=== PATIENT | female | born 1990 | race Caucasian/White ===

== ENCOUNTER 2020-10-13 09:44 | Outpatient (REF) | payer OTHER, SELFPAY ==
[2020-10-13 10:14] LABS: COVID-19 Test Negative (Negative); IDNOW Serial# 55D5AD1C
== END 2020-10-13 09:45 | disposition home or self-care (01) ==
LOC: HO.LAB 09:44
PROVIDERS: Visit Provider Internal Medicine
DX: Z20.822 Contact with and (suspected) exposure to COVID-19 (principal)
CPT/HCPCS: 36415; 87635; C9803

== ENCOUNTER 2021-04-15 07:36 | Emergency (ER) | payer OTHER, SELFPAY ==
--- NOTE | ~2021-04-15 | CT_ITS ---
EXAMINATION: CT ABDOMEN WITHOUT CONTRAST CLINICAL INFORMATION: Left flank pain COMPARISON: CT abdomen and pelvis 05/14/2018. TECHNIQUE: Contiguous axial thin section helical images of the abdomen were performed without contrast. The data set was reformatted in the coronal and sagittal planes and reviewed on an independent workstation. This CT examination was performed using dose optimization techniques as appropriate, variously including the following: *Automated exposure control *Adjustment of mA and/or kV according to patient size (this includes techniques or standardized protocols for targeted exams where dose is matched to indication/reason for exam; i.e. extremities or head) *Use of iterative reconstruction technique DLP: 280 mGy-cm FINDINGS: Only abdomen was imaged. The pelvis was not imaged. LUNG BASES: The lung bases are clear. The heart size is normal. LIVER, GALLBLADDER, BILIARY TREE: The liver is normal size, shape and density. No focal lesion or intrahepatic ductal dilatation seen. There are no radiopaque gallstones or wall thickening. PANCREAS: Adjacent density and appears normal. SPLEEN: Unremarkable. ADRENAL GLANDS AND KIDNEYS: Bilateral adrenal glands are unremarkable. There are bilateral radiopaque renal calculi. A 3 mm and a 7 mm radiopaque calculi seen in the midpole right kidney. 1 mm punctate radiopaque calculus and upper midpole left kidney. There are punctate 1 mm radiopaque calculi. There is mild prominence of proximal left ureter BOWEL LOOPS: Scattered stool and gas is seen in the colon. The small bowel loops are normal caliber. Appendix is normal caliber. There is no free air or free fluid. LYMPH NODES: Normal. VASCULAR: Unremarkable. BONES: No lytic or sclerotic process seen. CT/CT abdomen wo con IMPRESSION: Nonobstructive bilateral radiopaque renal calculi. Minimal prominence of left proximal ureter.
[2021-04-15 07:37] VITALS: BP 115/68; PULSE 75; RESP 16; TEMP 36.6; O2SAT 99; BMI 27.3
[2021-04-15] MEDS: Ketorolac Tromethamine 15 MG/ML VIAL IVPUSH (08:08)
[2021-04-15] MEDS: 0.9 % Sodium Chloride 1,000 ML 999 ML IVCONT (08:09)
--- NOTE | 2021-04-15 08:09 | ED_ITS ---
HPI - Abdominal Pain General Chief Complaint: Abdominal Pain Stated Complaint: flank pain Time Seen by Provider: 04/15/21 07:56 Source: patient Mode of arrival: ambulatory Limitations: no limitations History of Present Illness HPI narrative: This is a 30 years old female presented to the ED with a chief complaint of left flank pain. She states that the pain started 4 hours ago, she states she that she has history of kidney stone. There is no fever, no chills, no vomiting and no diarrhea. MD elicited complaint: flank pain Pertinent past history: kidney stones Onset (ago): hour(s) (4) Pain Consistency: constant Location: L flank Severity: moderate Quality: dull Radiation: L flank Migration to: no migration Exacerbating factors: nothing Related Data Patient : No Previous Rx's Medication Instructions Recorded ibuprofen 800 mg tablet 800 mg PO TID PRN #30 tab 04/15/21 oxycodone 5 mg capsule 5 mg PO Q8H PRN #12 cap 04/15/21 Allergies Allergy/AdvReac Type Severity Reaction Status Date / Time Penicillins Allergy Severe ANAPHYLAXIS Verified 04/15/21 10:06 penicillin V Allergy Unknown anaphylaxis Unverified 05/27/19 00:00 Review of Systems Review of Systems Yes all other systems are reviewed and are negative Constitutional: Denies fever(s) Cardiovascular: Denies chest pain Reports system reviewed and no additional complaints, except as documented Physical Exam Vital Signs: Vital Signs: Last Vital Signs Temp 97.9 F 04/15/21 07:37 Pulse 62 04/15/21 09:47 Resp 14 04/15/21 09:47 BP 95/64 04/15/21 09:47 Pulse Ox 98 04/15/21 09:47 Body Mass Index 27.3 Const: General: cooperative, healthy appearing and no acute distress Orientation/consciousness: patient oriented x3 HENMT: Head: Yes normal to inspection Face and sinus: Yes normal facial exam Throat: Yes posterior oropharynx normal Neck: Neck: Yes normal visual inspection, Yes full ROM and Yes no lymphadenopathy Chest: Chest palpation & inspection: normal inspection of the chest Resp: Effort & Inspection: normal respiratory effort Auscultation: clear to auscultation bilaterally Cardio: Jugular venous distension: no JVD Rate: regular rate Rhythm: regular rhythm GI: Inspection: Yes normal to inspection Palpation (GI): Soft to palpation and Tenderness to palpation present (GI) (left flank) Skin: General skin exam: no rashes or lesions noted, elasticity normal and turgor normal Trauma: no lacerations or abrasions Neuro: General: patient oriented x3 Cranial nerves: Yes CN's II-XII intact bilaterally Cognition (Neuro): normal cognition Course Reevaluation(s) Reevaluation #1: pt is asyntomatic pin gone u showed hematuria,ct no hydronephrosis,OK to d/c MDM - Abdominal Pain MDM Narrative Medical decision making narrative: We will obtain CBC, chemistry UA with pre gnancy test we will get a CT scan of the abdomen and pelvis to rule out a kidney stone Lab Data Result diagrams: 04/15/21 09:03 04/15/21 09:03 Labs: Lab Results 04/15/21 04/15/21 04/15/21 Range/Units 09:03 09:03 09:03 WBC 11.5 H (4.8-10.8) X10*3/uL RBC 5.20 (4.20-5.50) X10*6/uL Hgb 14.7 (12.0-16.0) g/dl Hct 45.8 (37-47) % MCV 88.1 (80-98) fL MCH 28.3 (27.0-33.0) pg MCHC 32.1 (31.0-35.0) g/dl RDW 13.4 (11.0-16.0) % Plt Count 242 (160-400) X10*3/uL MPV 11.1 (9.4-12.3) fL Immature Gran % (Auto) 0.3 (0.0-0.4) % Neut % (Auto) 82.1 H (45-73) % Lymph % (Auto) 12.7 L (20-40) % [place] % (Auto) 4.4 (2-11) % Eos % (Auto) 0.3 (0-4) % Baso % (Auto) 0.2 (0-2) % Lymph # (Auto) 1.5 (1.2-4.9) X10*3/uL [place] # (Auto) 0.5 (0.1-1.2) X10*3/uL Eos # (Auto) 0.0 (0.0-0.4) X10*3/uL Baso # (Auto) 0.0 (0.0-0.2) X10*3/uL Abs Immat Gran (auto) 0.04 H (0.00-0.03) X10*3/uL Absolute Neuts (auto) 9.5 H (2.0-8.3) X10*3/uL Absolute Nucleated RBC 0.000 (0.0-0.012) X10*3/uL Nucleated RBC % (auto) 0.0 (0.0-0.2) /100WBC Sodium 138 (135-145) mmol/L Potassium 3.7 (3.3-5.1) mmol/L Chloride 104 (96-108) mmol/L Carbon Dioxide 27 (22-29) mmol/L Anion Gap 11 L (12-20) BUN 7 L (9-16) mg/dL Creatinine 0.80 (0.5-1.4) mg/dL Estim Creat Clear Calc 87.0 Estimated GFR > 60 Random Glucose 104 (60-115) mg/dL Calcium 9.0 (8.4-10.2) mg/dL Total Bilirubin 0.5 (0.0-1.0) mg/dL AST 17 (5-31) U/L ALT 15 (0-31) U/L Alkaline Phosphatase 54 (39-117) U/L Total Protein 7.6 (6.5-8.0) g/dL Albumin 4.7 (3.5-5.0) g/dL Lipase 26 (8-78) U/L Beta HCG, Quant < 2 mIU/mL Urine Color Urine Appearance Urine pH (5.0-8.0) Ur Specific [place] (1.005-1.025) Urine Protein (NEG-TRACE) MG/DL Urine Glucose (UA) (NEG) MG/DL Urine Ketones (NEG) MG/DL Urine Blood (NEG) Urine Nitrite (NEG) Ur Leukocyte Esterase (NEG) Urine RBC (0) /HPF Urine WBC (0-4) /HPF Ur Squamous Epith Cells /LPF Amorphous Sediment /LPF Urine Bacteria /LPF Urine Mucus /LPF Urine Yeast /HPF 04/15/21 Range/Units 09:03 WBC (4.8-10.8) X10*3/uL RBC (4.20-5.50) X10*6/uL Hgb (12.0-16.0) g/dl Hct (37-47) % MCV (80-98) fL MCH (27.0-33.0) pg MCHC (31.0-35.0) g/dl RDW (11.0-16.0) % Plt Count (160-400) X10*3/uL MPV (9.4-12.3) fL Immature Gran % (Auto) (0.0-0.4) % Neut % (Auto) (45-73) % Lymph % (Auto) (20-40) % [place] % (Auto) (2-11) % Eos % (Auto) (0-4) % Baso % (Auto) (0-2) % Lymph # (Auto) (1.2-4.9) X10*3/uL [place] # (Auto) (0.1-1.2) X10*3/uL Eos # (Auto) (0.0-0.4) X10*3/uL Baso # (Auto) (0.0-0.2) X10*3/uL Abs Immat Gran (auto) (0.00-0.03) X10*3/uL Absolute Neuts (auto) (2.0-8.3) X10*3/uL Absolute Nucleated RBC (0.0-0.012) X10*3/uL Nucleated RBC % (auto) (0.0-0.2) /100WBC Sodium (135-145) mmol/L Potassium (3.3-5.1) mmol/L Chloride (96-108) mmol/L Carbon Dioxide (22-29) mmol/L Anion Gap (12-20) BUN (9-16) mg/dL Creatinine (0.5-1.4) mg/dL Estim Creat Clear Calc Estimated GFR Random Glucose (60-115) mg/dL Calcium (8.4-10.2) mg/dL Total Bilirubin (0.0-1.0) mg/dL AST (5-31) U/L ALT (0-31) U/L Alkaline Phosphatase (39-117) U/L Total Protein (6.5-8.0) g/dL Albumin (3.5-5.0) g/dL Lipase (8-78) U/L Beta HCG, Quant mIU/mL Urine Color OTHER Urine Appearance HAZY Urine pH 7.0 (5.0-8.0) Ur Specific [place] <= 1.005 (1.005-1.025) Urine Protein TRACE (NEG-TRACE) MG/DL Urine Glucose (UA) NEG (NEG) MG/DL Urine Ketones NEG (NEG) MG/DL Urine Blood 3+ H (NEG) Urine Nitrite NEG (NEG) Ur Leukocyte Esterase 3+ H (NEG) Urine RBC TNTC H (0) /HPF Urine WBC 10-14 H (0-4) /HPF Ur Squamous Epith Cells TRACE /LPF Amorphous Sediment 1+ /LPF Urine Bacteria 1+ /LPF Urine Mucus TRACE /LPF Urine Yeast TRACE /HPF Imaging Data CT scan - abdomen: Radiologist's impression: PANCREAS: Adjacent density and appears normal.? SPLEEN: Unremarkable.? ADRENAL GLANDS AND KIDNEYS: Bilateral adrenal glands are unremarkable. There are bilateral radiopaque renal calculi. A 3 mm and a 7 mm radiopaque calculi seen in the midpole right kidney. 1 mm punctate radiopaque calculus and upper midpole left kidney. There are punctate 1 mm radiopaque calculi. There is mild prominence of proximal left ureter BOWEL LOOPS: Scattered stool and gas is seen in the colon. The small bowel loops are normal caliber. Appendix is normal caliber. There is no free air or free fluid.? LYMPH NODES: Normal. VASCULAR: Unremarkable. BONES: No lytic or sclerotic process seen.? CT/CT abdomen wo con IMPRESSION: Nonobstructive bilateral radiopaque renal calculi. Minimal prominence of left proximal ureter.? Dictated By: Singh Su MD Signed By: <Electronically signed by Singh Su MD in [place]> 04/15/21 1012 Discharge Plan Discharge Clinical Impression: Renal colic Patient Disposition: Home, Self-Care Instructions: Renal Colic (ED) Prescriptions: New ibuprofen 800 mg tablet 800 mg PO TID PRN (Reason: pain) Qty: 30 RF: 0 oxycodone 5 mg capsule 5 mg PO Q8H PRN (Reason: pain) Qty: 12 RF: 0 Interventions: ED Discharge Assessment Last Done: 04/15/21 10:43 Discharge Date/Time: 04/15/21 10:44 [facility] Past Medical History Attestation statement: The following information was validated with the patient. Social History Social History Patient Tobacco Use Status: Never used Tobacco Use of substances other than those prescribed or required for medical reasons: No Advance Directives: No Patient : No
[2021-04-15 09:09] LABS: MANUAL DIFF FLAG NO
[2021-04-15 09:12] LABS: Basophils Percent Auto 0.2 % (0-2); Eosinophils Percent Auto 0.3 % (0-4); Hematocrit 45.8 % (37-47); Hemoglobin 14.7 g/dl (12.0-16.0); Imm Gran Abs Auto 0.04 X10*3/uL (0.00-0.03); Imm Gran Pct Auto 0.3 % (0.0-0.4); Lymphocytes Absolute Auto 1.5 X10*3/uL (1.2-4.9); Lymphocytes Percent Auto 12.7 % (20-40); Mean Corpuscular HGB Conc 32.1 g/dl (31.0-35.0); Mean Corpuscular Hemoglobin 28.3 pg (27.0-33.0); Mean Corpuscular Volume 88.1 fL (80-98); Mean Platelet Volume 11.1 fL (9.4-12.3); Monocytes Absolute Auto 0.5 X10*3/uL (0.1-1.2); Monocytes Percent Auto 4.4 % (2-11); Neutrophils Absolute Auto 9.5 X10*3/uL (2.0-8.3); Neutrophils Percent Auto 82.1 % (45-73); Platelet Count 242 X10*3/uL (160-400); Red Cell Distribution Width 13.4 % (11.0-16.0); White Blood Count 11.5 X10*3/uL (4.8-10.8)
[2021-04-15 09:14] LABS: Appearance Urine HAZY; Glucose Urine UA NEG (NEG); Leukocyte Esterase Urine 3+ (NEG); Nitrite Urine NEG (NEG); Specific Gravity - Urine <= 1.005 (1.005-1.025); UACC Culture Trigger YES; Urine Blood 3+ (NEG); Urine Ketones NEG (NEG); Urine Protein TRACE MG/DL (NEG-TRACE)
[2021-04-15 09:16] LABS: Color Urine OTHER
[2021-04-15 09:21] LABS: UACC CULT YES
[2021-04-15 09:22] LABS: RBC Urine TNTC /HPF (0); Squamous Epithelial Cell Urine TRACE /LPF
[2021-04-15 09:24] LABS: Amorphous Sediment Urine 1+ /LPF; Bacteria Urine 1+ /LPF; Mucus Urine TRACE /LPF
[2021-04-15 09:30] LABS: Alanine Aminotransferase 15 U/L (0-31); Albumin Level 4.7 g/dL (3.5-5.0); Alkaline Phosphatase 54 U/L (39-117); Anion Gap 11 (12-20); Aspartate Amino Transferase 17 U/L (5-31); Bilirubin Total 0.5 mg/dL (0.0-1.0); Blood Urea Nitrogen 7 mg/dL (9-16); Carbon Dioxide 27 mmol/L (22-29); Chloride 104 mmol/L (96-108); Estimated Glomerular Filt Rate > 60; Glucose Random 104 mg/dL (60-115); Lipase 26 U/L (8-78); Potassium 3.7 mmol/L (3.3-5.1); Sodium 138 mmol/L (135-145); Total Protein 7.6 g/dL (6.5-8.0)
[2021-04-15 09:33] LABS: HCG Quantitative < 2 mIU/mL
--- NOTE | 2021-04-15 09:45 | PC.NURSE ---
The pt presented to the ED for avaluation of L sided flank pain x 23 hours that she believes to be a kidney stone She denies cdhange in bowel/bladder habits. Denies fever/chills She admits to nausea and vomiting prior to arrival. no chest pain or SOB. On arrival IV access obtained, IVF's and Toradol given. Pt arrived with L flank pain 11/10. At this time she rates the pain at 2/10 after Toradol admin. She has been to Ct and has returned to her room and is awaiting MD dispo. Family at the bedside..
[2021-04-15 09:47] VITALS: BP 95/64; PULSE 62; RESP 14; O2SAT 98
== END 2021-04-15 10:44 | disposition home or self-care (01) ==
PROVIDERS: Emergency Provider Emergency Medicine
DX: N23 Unspecified renal colic (principal); Z79.899 Other long term (current) drug therapy
CPT/HCPCS: 36415; 74150; 80053; 81001; 83690; 84702; 85025; 87086; 87088; 87186; 96361; 96374; 99284; 99285; J1885

== ENCOUNTER 2021-04-16 08:59 | Emergency (ER) | payer OTHER, SELFPAY ==
[2021-04-16 09:04] VITALS: BP 100/54; PULSE 77; RESP 22; TEMP 36.6; O2SAT 99; BMI 26.5
--- NOTE | 2021-04-16 09:15 | ED.FEMALEGU ---
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 Denies fever, chills, vomiting, diarrhea, dysuria MD elicited complaint: flank pain Related Data Previous Rx's Medication Instructions Recorded ibuprofen 800 mg tablet 800 mg PO TID PRN #30 tab 04/15/21 oxycodone 5 mg capsule 5 mg PO Q8H PRN #12 cap 04/15/21 oxycodone-acetaminophen 5 mg-325 1 tab PO Q8H PRN 3 Days #9 tab 04/16/21 mg tablet (Percocet) tamsulosin 0.4 mg capsule (Flomax) 0.4 mg PO DAILY #10 cap 04/16/21 Allergies Allergy/AdvReac Type Severity Reaction Status Date / Time Penicillins Allergy Severe ANAPHYLAXIS Verified 04/15/21 10:06 penicillin V Allergy Unknown anaphylaxis Unverified 05/27/19 00:00 Review of Systems Review of Systems: Constitutional:No Fever, No Fatigue, No Malaise ENT/Mouth: No Ear Pain, No Nasal Congestion, No sore throat, No Rhinorrhea, No Swallowing Difficulty Eyes: No Eye Pain, No Discharge Cardiovascular: No Chest Pain, No SOB, No Palpitations Respiratory: No Cough, No Sputum, No Dyspnea Gastrointestinal: + Nausea, No Vomiting, No Diarrhea, No Constipation, + Abdominal pain Genitourinary: No irregular bleeding, No Dysuria, No Urinary Frequency, + Hematuria, No Urinary Incontinence, No Urgency, + Flank Pain, No Urinary Flow Changes, No Hesitancy Musculoskeletal: No joint pain, No Myalgias, No Joint Swelling Skin: No Skin Lesions, No rash Neuro: No Weakness, No Numbness, No Headache Yes all other systems are reviewed and are negative PMFSH Past Medical History Attestation statement: The following information was validated with the patient. Social History Social History Patient Tobacco Use Status: Never used Tobacco Advance Directives: No Patient : No Physical Exam Vital Signs: Vital Signs: Last Vital Signs Temp 98 F 04/16/21 09:04 Pulse 62 04/16/21 10:56 Resp 16 04/16/21 10:56 BP 103/62 04/16/21 10:56 Pulse Ox 99 04/16/21 10:56 Body Mass Index 26.5 Const: General: cooperative, healthy appearing and no acute distress Orientation/consciousness: patient oriented x3 Limitations: no limitations HENMT: Head: Yes normal to inspection Ears: hearing grossly normal bilaterally General nose exam: Normal external nose present Face and sinus: Yes normal facial exam Eyes: General: appearance normal, both eyes and all related structures EOM: EOMs intact bilaterally Neck: Neck: Yes normal visual inspection and Yes no meningeal signs Resp: Effort & Inspection: normal respiratory effort and no respiratory distress Cardio: Rate: regular rate GI: Inspection: Yes normal to inspection Palpation (GI): Soft to palpation, Tenderness to palpation present (GI) in the LLQ, no guarding and not rigid : General: Yes no CVA tenderness Back/Spine/Pelvis: Back: no CVA tenderness Skin: Rashes: no rashes Wounds: no wounds Neuro: General: patient oriented x3 and no meningeal signs Gait exam (Neuro): Normal gait present Extrem: General: Yes normal to inspection Course Course Course Narrative: -WBC 11.8, labs otherwise unremarkable, UA with RBCs/not infected -1055--on re-evaluation patient sleeping comfortably, easily arousable, reports symptomatic improvement, tolerating p.o. -1149--on re-evaluation patient continues to report symptomatic improvement, very comfortable lying in bed, feels safe for discharge home at this time. 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 Discussed worrisome signs and symptoms and strict return precautions and follow-up with Urology, patient verbalized understanding feel safe for discharge home MDM - Female Genitourinary MDM Narrative Medical decision making narrative: 30-year-old female with a past medical history renal calculi, seen in our ED yesterday diagnosed with bilateral nonobstructing renal calculi presenting to the ED with persistent left flank pain radiating to left lower quadrant and associated nausea and hematuria. On exam mildly tachypneic, appears in pain, abdomen soft with left lower quadrant tenderness, no CVAT. Labs reviewed from yesterday, patient with noted hematuria, CT showed bilateral renal calculi, and mild left proximal ureteral prominence. Concern patient is passing stone. Lower concern for UTI/pyelo or diverticulitis. Plan: Repeat Labs, UA, IVF, pain management, re-evaluation On bedside ultrasound no hydronephrosis appreciated Medical Records Attestation: I reviewed the patient's medical records. Lab Data Attestation: I reviewed the patient's lab results. Result diagrams: 04/16/21 09:15 04/16/21 09:15 Labs: Lab Results 04/16/21 04/16/21 04/16/21 Range/Units 09:15 09:15 10:21 WBC 11.8 H (4.8-10.8) X10*3/uL RBC 4.75 (4.20-5.50) X10*6/uL Hgb 13.7 (12.0-16.0) g/dl Hct 41.5 (37-47) % MCV 87.4 (80-98) fL MCH 28.8 (27.0-33.0) pg MCHC 33.0 (31.0-35.0) g/dl RDW 13.4 (11.0-16.0) % Plt Count 231 (160-400) X10*3/uL MPV 10.9 (9.4-12.3) fL Immature Gran % (Auto) 0.3 (0.0-0.4) % Neut % (Auto) 81.1 H (45-73) % Lymph % (Auto) 14.6 L (20-40) % [place] % (Auto) 3.7 (2-11) % Eos % (Auto) 0.1 (0-4) % Baso % (Auto) 0.2 (0-2) % Lymph # (Auto) 1.7 (1.2-4.9) X10*3/uL [place] # (Auto) 0.4 (0.1-1.2) X10*3/uL Eos # (Auto) 0.0 (0.0-0.4) X10*3/uL Baso # (Auto) 0.0 (0.0-0.2) X10*3/uL Abs Immat Gran (auto) 0.03 (0.00-0.03) X10*3/uL Absolute Neuts (auto) 9.6 H (2.0-8.3) X10*3/uL Absolute Nucleated RBC 0.000 (0.0-0.012) X10*3/uL Nucleated RBC % (auto) 0.0 (0.0-0.2) /100WBC Sodium 140 (135-145) mmol/L Potassium 3.9 (3.3-5.1) mmol/L Chloride 108 (96-108) mmol/L Carbon Dioxide 21 L (22-29) mmol/L Anion Gap 15 (12-20) BUN 8 L (9-16) mg/dL Creatinine 0.83 (0.5-1.4) mg/dL Estim Creat Clear Calc 93.4 Estimated GFR > 60 Random Glucose 112 (60-115) mg/dL Calcium 9.5 (8.4-10.2) mg/dL Urine Color YELLOW Urine Appearance CLEAR Urine pH 6.0 (5.0-8.0) Ur Specific [place] <= 1.005 (1.005-1.025) Urine Protein NEG (NEG-TRACE) MG/DL Urine Glucose (UA) NEG (NEG) MG/DL Urine Ketones NEG (NEG) MG/DL Urine Blood 2+ H (NEG) Urine Nitrite NEG (NEG) Ur Leukocyte Esterase 1+ H (NEG) Urine RBC 1-4 (0) /HPF Urine WBC 5-9 H (0-4) /HPF Ur Squamous Epith Cells 1+ /LPF Urine Bacteria TRACE /LPF Discharge Plan Discharge Clinical Impression: Renal colic Patient Disposition: Home, Self-Care Instructions: Renal Colic (ED) Additional Instructions: Your blood work is reassuring. Urine looks improved from yesterday however still has blood in it Flomax will help dilate your ureter to aid in passing stones Percocet is an opiate pain medication, take only when pain is severe for the next 3 days In addition take ibuprofen at home Really push fluids If you develop persistent nausea/vomiting, unbearable pain, fever, you are unable to urinate return to the ED Prescriptions: New tamsulosin [Flomax] 0.4 mg capsule 0.4 mg PO DAILY Qty: 10 RF: 0 oxycodone-acetaminophen [Percocet] 5-325 mg tablet 1 tab PO Q8H PRN (Reason: pain, severe) 3 Days Qty: 9 RF: 0 No Action ibuprofen 800 mg tablet 800 mg PO TID PRN (Reason: pain) Qty: 30 RF: 0 oxycodone 5 mg capsule 5 mg PO Q8H PRN (Reason: pain) Qty: 12 RF: 0 Referrals: Domenic Palumbo MD [Physician] - 5 days
[2021-04-16] MEDS: ondansetron HCL 4 MG/2 ML VIAL IVPUSH (09:18)
[2021-04-16] MEDS: Ketorolac Tromethamine 15 MG/ML VIAL IVPUSH ×2 (09:18→10:15)
[2021-04-16 09:20] LABS: Basophils Percent Auto 0.2 % (0-2); Eosinophils Percent Auto 0.1 % (0-4); Hematocrit 41.5 % (37-47); Hemoglobin 13.7 g/dl (12.0-16.0); Imm Gran Abs Auto 0.03 X10*3/uL (0.00-0.03); Imm Gran Pct Auto 0.3 % (0.0-0.4); Lymphocytes Absolute Auto 1.7 X10*3/uL (1.2-4.9); Lymphocytes Percent Auto 14.6 % (20-40); MANUAL DIFF FLAG NO; Mean Corpuscular Hemoglobin 28.8 pg (27.0-33.0); Mean Corpuscular Volume 87.4 fL (80-98); Mean Platelet Volume 10.9 fL (9.4-12.3); Monocytes Absolute Auto 0.4 X10*3/uL (0.1-1.2); Monocytes Percent Auto 3.7 % (2-11); Neutrophils Absolute Auto 9.6 X10*3/uL (2.0-8.3); Neutrophils Percent Auto 81.1 % (45-73); Platelet Count 231 X10*3/uL (160-400); Red Blood Count 4.75 X10*6/uL (4.20-5.50); Red Cell Distribution Width 13.4 % (11.0-16.0); White Blood Count 11.8 X10*3/uL (4.8-10.8)
[2021-04-16] MEDS: 0.9 % Sodium Chloride 1,000 ML 999 ML IVCONT ×2 (09:20→11:15)
[2021-04-16 09:33] LABS: Anion Gap 15 (12-20); Blood Urea Nitrogen 8 mg/dL (9-16); Calcium 9.5 mg/dL (8.4-10.2); Carbon Dioxide 21 mmol/L (22-29); Chloride 108 mmol/L (96-108); Creatinine Clr Calc Pharmacy 93.4; Estimated Glomerular Filt Rate > 60; Glucose Random 112 mg/dL (60-115); Potassium 3.9 mmol/L (3.3-5.1); Sodium 140 mmol/L (135-145)
[2021-04-16] MEDS: Morphine Sulfate 2 MG/ML CARTRIDGE IVPUSH ×2 (09:43→10:15)
[2021-04-16 10:00] VITALS: PULSE 70; RESP 20; O2SAT 99
[2021-04-16] MEDS: Tamsulosin HCL 0.4 MG CAPSULE PO (10:15)
[2021-04-16 10:27] LABS: Appearance Urine CLEAR; Color Urine YELLOW; Glucose Urine UA NEG (NEG); Leukocyte Esterase Urine 1+ (NEG); Nitrite Urine NEG (NEG); Specific Gravity - Urine <= 1.005 (1.005-1.025); UACC Culture Trigger YES; Urine Blood 2+ (NEG); Urine Ketones NEG (NEG); Urine Protein NEG (NEG-TRACE)
[2021-04-16 10:37] LABS: Bacteria Urine TRACE /LPF; Squamous Epithelial Cell Urine 1+ /LPF
[2021-04-16 10:56] VITALS: BP 103/62; PULSE 62; RESP 16; O2SAT 99
[2021-04-16 12:00] VITALS: BP 104/60; PULSE 60; RESP 14; O2SAT 99
== END 2021-04-16 12:10 | disposition home or self-care (01) ==
PROVIDERS: Physician Assistant; Emergency Provider Emergency Medicine
DX: N23 Unspecified renal colic (principal); Z79.899 Other long term (current) drug therapy
CPT/HCPCS: 36415; 80048; 81001; 85025; 96361; 96374; 96375; 96376; 99284; J1885; J2270; J2405

== ENCOUNTER → 2021-08-01 11:33 | Outpatient (BNVA) | payer OTHER, SELFPAY | PROVIDERS: Visit Provider Obstetrics & Gynecology | DX: Z32.01 Encounter for pregnancy test, result positive (principal); Z3A.01 Less than 8 weeks gestation of pregnancy | CPT/HCPCS: 99212 ==

== ENCOUNTER 2021-08-08 14:18 | Outpatient (REF) | payer OTHER, SELFPAY ==
--- NOTE | ~2021-08-08 | US_ITS ---
EXAMINATION: US OBSTETRICAL ULTRASOUND CLINICAL INFORMATION: Check size and dates COMPARISON: None. LMP: Unknown. Gestational age by maternal dates is . Estimated date of delivery by maternal dates is . TECHNIQUE: Transabdominal first trimester OB ultrasound FINDINGS: There is a single intrauterine gestational sac with visible yolk sac, embryo/fetus, and cardiac activity. There is no significant subchorionic hemorrhage or hematoma. HR: 158 beats per minute. CRL (crown rump length): 3.6 cm (10 weeks 4 days +/- 4 days). HARPER (estimated date of delivery): 03/02/2022 +/- 4 days. MATERNAL ADNEXA: The right maternal ovary measures 3.4 x 2.3 x 4.1 cm. The left maternal ovary measures 3.2 x 1.8 x 2.6 cm. There is no significant maternal adnexal mass. No maternal pelvic ascites. US/US OB <= 14 weeks fetus IMPRESSION: 1. Single intrauterine gestation with ultrasound gestational age of 10 weeks 4 days +/- 4 days. 2. Estimated date of delivery is 03/02/2022 +/- 4 days. 3. No maternal adnexal mass or pelvic ascites.
== END 2021-08-08 14:19 | disposition home or self-care (01) ==
LOC: HO.HMGCX 14:18
PROVIDERS: Visit Provider Obstetrics & Gynecology
DX: Z34.90 Encounter for supervision of normal pregnancy, unspecified, unspecified trimester (principal); Z36.87 Encounter for antenatal screening for uncertain dates
CPT/HCPCS: 76801

== ENCOUNTER 2021-08-12 18:08 | Emergency (ER) | payer OTHER, SELFPAY ==
--- NOTE | ~2021-08-12 | US_ITS ---
EXAMINATION: US PELVIS LIMITED (BLADDER) CLINICAL INFORMATION: Evaluate for possible bladder calculi.. COMPARISON: CT abdomen and pelvis 05/14/2018. Obstetrical ultrasound 05/22/2019 TECHNIQUE: Real-time imaging of the bladder.. Color Doppler exam used. FINDINGS: BLADDER: Well distended and normal. There is no bladder calculus. No bladder mass. Bilateral ureteral jets are demonstrated. Prevoid bladder volume is 167 mL. Postvoid bladder volume is 106 mL. US/US bladder IMPRESSION: 1. No bladder calculus or bladder mass. 2. Post void residual of 106 mL..
--- NOTE | ~2021-08-12 | US_ITS ---
EXAMINATION: US RETROPERITONEAL LIMITED (RENAL ONLY) CLINICAL INFORMATION: Flank pain. COMPARISON: None TECHNIQUE: Renal ultrasound Department standard protocol. FINDINGS: RIGHT KIDNEY: 10.8 x 4.8 x 6.2 cm (SAG x AP x TRV). The kidney is normal in size, contour, and echogenicity. Renal cortical thickness is normal. There is echogenic structures likely nonobstructing stones middle pole measures 5 x 4 mm. There is mild hydronephrosis. LEFT KIDNEY: 10.8 x 5.7 x 4.8 cm (SAG x AP x TRV). The kidney is normal in size, contour, and echogenicity. Renal cortical thickness is normal. No calculi or focal parenchymal lesions. No hydronephrosis. US/US renal BI IMPRESSION: Mild right renal hydronephrosis and hydroureter, the ureter is about 8 mm raising concern for possible distal obstruction. There is nonobstructing stone in the right kidney 5 mm. Left kidney is unremarkable. May consider noncontrast CT scan for further investigation..
--- NOTE | ~2021-08-12 | US_ITS ---
EXAMINATION: ULTRASOUND PELVIC, COMPLETE CLINICAL INFORMATION: Flank pain. . COMPARISON: Obstetrical ultrasound 08/08/2021. Ultrasound previous dating HARPER 03/02/2022. 11 weeks 1 day. TECHNIQUE: Transabdominal grayscale imaging of pelvis. Spectral Doppler and color Doppler exam was utilized. LMP: 05/26/2021. FINDINGS: UTERUS: There is a single intrauterine gestation present. heart rate 158 bpm. [place]-rump length 4.18 cm. This correlates to gestational age of 11 week 1 day. [place] 03/02/2022.. No evidence of subchorionic bleed. Cervical length 3.6 cm. ADNEXA: Ovarian vascularity:Doppler demonstrates both arterial and venous vascular flow in the right and left ovary. No evidence of ovarian torsion. Right Ovary: 2.6 x 2.4 x 2.3 cm. Volume 7.4 mL Left Ovary: 4 x 3 x 2 cm. Volume 12.3 mL. Cul-de-sac: No Fluid US/US OB limited IMPRESSION: Single intrauterine gestation with estimated gestational age by this exam of 11 weeks 1 day. HAR[place] 03/02/2022. There has been appropriate interval growth since the prior ultrasound of 08/08/2021.
[2021-08-12 18:16] VITALS: BP 126/80; PULSE 95; RESP 16; TEMP 36.8; O2SAT 98; BMI 21.4
--- NOTE | 2021-08-12 18:29 | ED_ITS ---
HPI - Abdominal Pain General Chief Complaint: Abdominal Pain Stated Complaint: kidney stones, 11 weeks preg Time Seen by Provider: 08/12/21 18:28 Source: patient Mode of arrival: ambulatory Limitations: no limitations History of Present Illness HPI narrative: 30-year-old female currently about 11 weeks presents to the emergency department with complaints of right-sided flank pain intermittent in nature, severe > 10/10. She tells me she has a history of kidney stones and it felt about the same as this episode when she had kidney stones. She tells me some of her stones have passed on her own, others have required lithotripsy. At this time she has a little bit agitated, on the floor, lying on all fours, telling me she is in too much pain to talk to me. Mom at the bedside tells me she has been having severe right-sided flank pain x2 days. Denies vaginal bleeding, vaginal discharge, chest pain, shortness of breath, nausea, vomiting, abdominal pain, fevers or chills. Patient does appear uncomfortable. MD elicited complaint: flank pain Pertinent past history: other (kidney stones ) Onset (ago): day(s) (2) Location: none Severity: severe Radiation: none Migration to: no migration Exacerbating factors: nothing Relieving factors: nothing Associated symptoms: denies other symptoms Related Data Previous Rx's Medication Instructions Recorded vitamins no.144-folic 1 tab PO DAILY 180 Days #180 tab 08/01/21 acid 400 mcg chewable tablet Allergies Allergy/AdvReac Type Severity Reaction Status Date / Time Penicillins Allergy Severe ANAPHYLAXIS Verified 08/01/21 11:46 penicillin V Allergy Unknown anaphylaxis Verified 08/01/21 11:46 Review of Systems Review of Systems Constitutional : No Weight loss, No Fever, No Chills, No Fatigue, No Malaise ENT/Mouth : No sore throat, No Rhinorrhea Eyes: No Eye Pain, No Swelling, No Redness Cardiovascular : No Chest Pain, No SOB, No Dyspnea on Exertion, No Orthopnea, No Edema, No Palpitations Respiratory : No Cough, No Sputum, No Wheezing Gastrointestinal : No Nausea, No Vomiting, No Diarrhea, No Constipation, No abdominal Pain, No Hematochezia, No Melena Genitourinary : No Dysuria, No Urinary Frequency, No Hematuria, Musculoskeletal : No joint pain, No Myalgias, No Joint Swelling, + flank pain Skin : No Skin Lesions, No rash Neuro : No Weakness, No Numbness, No Dizziness, No Headache Psych : No Anxiety/Panic, No Depression All other systems reviewed and are negative Yes all other systems are reviewed and are negative [facility] Past Medical History Attestation statement: The following information was validated with the patient. Source: old records reviewed and nursing notes reviewed Surgical History Hx of section Social History Social History Patient Tobacco Use Status: Former Tobacco user Advance Directives: No Physical Exam ED Vital Signs: Vital Signs - 24 hr 08/12/21 18:16 08/12/21 20:55 Temperature 98.2 F 98.3 F Pulse Rate 95 84 Respiratory Rate 16 16 Blood Pressure 126/80 101/68 Pulse Oximetry 98 BMI result Body Mass Index 21.4 VSS Appearance: Alert.? Oriented X3.? No acute distress.?Patient appears uncomfortable. Head: Normocephalic, atraumatic, no step-offs or deformities Eyes: Pupils equal, round and reactive to light.? ENT: Pharynx normal.? Neck: Normal inspection.? Neck supple.? CVS: Normal heart rate and rhythm.? Pulses normal.? Respiratory: No respiratory distress.? Breath sounds normal.? Abdomen: Soft and nontender.? Skin: Skin warm and dry.? Normal skin color.? Normal skin turgor.? Extremities: No lower extremity edema.? No calf ttp. 5/5 strength to bilateral upper and lower extremities Back: No midline tenderness, no C-spine tenderness, full range of motion, + right sided CVA tenderness Neuro: Oriented X 3.? No motor deficit.? No sensory deficit. Course Reevaluation(s) Reevaluation #1: Patient is noted to have is leukocytosis will hold antibiotics until ultrasound of bilateral kidneys obtained to see if this is a obstructing uropathy I will also wait for urine. This could in part be elevated from and or reactive from severe pain. Chemistry and UA pending. Patient was given morphine, and fluids. Time: 19:00 Reevaluation #2: Ultrasound shows mild right renal hydronephrosis and hydroureter, the ureters well a 8 mm raising concern for possible distal obstruction. There is nonobstructing stone in the right kidney about 5 mm, the left kidney is unremarkable. Time: 20:24 Reevaluation #3: TT Dr. Palumbo who recommends Flomax. I spoke to Nick to see if jets were present on US, the bladder was not visualized therefor can not assess this. Spoke to Dr. Palumbo about this who recommends an ultrasound of the bladder to better evaluate patient. Patient will likely need to be admitted for pain management as she is in severe pain. If stone does not pass patient may require stents. I ordered an ultrasound of the bladder for this patient. Sign out was given to Deborah MEJIA. Time: 21:04 MDM - Abdominal Pain MDM Narrative Medical decision making narrative: 183 30 yo f pmhx nephrolithiasis presents w/ severe left flank pain currently about 11 weeks . Patient appears uncomfortable on all fours on the ground. PE significant for R sided CVA tenderness Plan- labs, UA Medical Records Attestation: I reviewed the patient's medical records. Lab Data Attestation: I reviewed the patient's lab results. Result diagrams: 08/12/21 18:30 08/12/21 18:30 Labs: Lab Results 08/12/21 08/12/21 08/12/21 Range/Units 18:30 18:30 18:30 WBC 16.8 H (4.8-10.8) X10*3/uL RBC 4.52 (4.20-5.50) X10*6/uL Hgb 13.7 (12.0-16.0) g/dl Hct 40.1 (37.0-47.0) % MCV 88.7 (80.0-98.0) fL MCH 30.3 (27.0-33.0) pg MCHC 34.2 (31.0-35.0) g/dl RDW 13.0 (11.0-16.0) % Plt Count 261 (160-400) X10*3/uL MPV 10.8 (9.4-12.3) fL Immature Gran % (Auto) 0.6 H (0.0-0.4) % Neut % (Auto) 80.7 H (45-73) % Lymph % (Auto) 13.4 L (20-40) % [place] % (Auto) 4.9 (2-11) % Eos % (Auto) 0.2 (0-4) % Baso % (Auto) 0.2 (0-2) % Lymph # (Auto) 2.3 (1.2-4.9) X10*3/uL [place] # (Auto) 0.8 (0.1-1.2) X10*3/uL Eos # (Auto) 0.0 (0.0-0.4) X10*3/uL Baso # (Auto) 0.0 (0.0-0.2) X10*3/uL Abs Immat Gran (auto) 0.10 H (0.00-0.03) X10*3/uL Absolute Neuts (auto) 13.6 H (2.0-8.3) x10*3/uL Absolute Nucleated RBC 0.000 (0.0-0.012) X10*3/uL Nucleated RBC % (auto) 0.0 (0.0-0.2) /100WBC Sodium 136 (135-145) mmol/L Potassium 4.5 (3.3-5.1) mmol/L Chloride 103 (96-108) mmol/L Carbon Dioxide 20 L (22-29) mmol/L Anion Gap 18 (12-20) BUN 8 L (9-16) mg/dL Creatinine 0.64 (0.5-1.4) mg/dL Estim Creat Clear Calc 93.9 Estimated GFR > 60 Random Glucose 102 (60-115) mg/dL Lactic Acid (0.5-2.0) mmol/L Calcium 9.7 (8.4-10.2) mg/dL Total Bilirubin 0.4 (0.0-1.0) mg/dL AST 23 (5-31) U/L ALT 11 (0-31) U/L Alkaline Phosphatase 53 (39-117) U/L Total Protein 7.6 (6.5-8.0) g/dL Albumin 4.2 (3.5-5.0) g/dL Lipase 25 (8-78) U/L Beta HCG, Quant 581545 mIU/mL Urine Color Urine Appearance Urine pH (5.0-8.0) Ur Specific [place] (1.005-1.025) Urine Protein (NEG-TRACE) MG/DL Urine Glucose (UA) (NEG) MG/DL Urine Ketones (NEG) MG/DL Urine Blood (NEG) Urine Nitrite (NEG) Ur Leukocyte Esterase (NEG) Urine RBC (0) /HPF Urine WBC (0-4) /HPF Ur Squamous Epith Cells /LPF Urine Bacteria /LPF Urine Mucus /LPF 08/12/21 08/12/21 Range/Units 19:23 19:23 WBC (4.8-10.8) X10*3/uL RBC (4.20-5.50) X10*6/uL Hgb (12.0-16.0) g/dl Hct (37.0-47.0) % MCV (80.0-98.0) fL MCH (27.0-33.0) pg MCHC (31.0-35.0) g/dl RDW (11.0-16.0) % Plt Count (160-400) X10*3/uL MPV (9.4-12.3) fL Immature Gran % (Auto) (0.0-0.4) % Neut % (Auto) (45-73) % Lymph % (Auto) (20-40) % [place] % (Auto) (2-11) % Eos % (Auto) (0-4) % Baso % (Auto) (0-2) % Lymph # (Auto) (1.2-4.9) X10*3/uL [place] # (Auto) (0.1-1.2) X10*3/uL Eos # (Auto) (0.0-0.4) X10*3/uL Baso # (Auto) (0.0-0.2) X10*3/uL Abs Immat Gran (auto) (0.00-0.03) X10*3/uL Absolute Neuts (auto) (2.0-8.3) x10*3/uL Absolute Nucleated RBC (0.0-0.012) X10*3/uL Nucleated RBC % (auto) (0.0-0.2) /100WBC Sodium (135-145) mmol/L Potassium (3.3-5.1) mmol/L Chloride (96-108) mmol/L Carbon Dioxide (22-29) mmol/L Anion Gap (12-20) BUN (9-16) mg/dL Creatinine (0.5-1.4) mg/dL Estim Creat Clear Calc Estimated GFR Random Glucose (60-115) mg/dL Lactic Acid 1.4 (0.5-2.0) mmol/L Calcium (8.4-10.2) mg/dL Total Bilirubin (0.0-1.0) mg/dL AST (5-31) U/L ALT (0-31) U/L Alkaline Phosphatase (39-117) U/L Total Protein (6.5-8.0) g/dL Albumin (3.5-5.0) g/dL Lipase (8-78) U/L Beta HCG, Quant mIU/mL Urine Color YELLOW Urine Appearance CLEAR Urine pH 5.5 (5.0-8.0) Ur Specific [place] >= 1.030 H (1.005-1.025) Urine Protein NEG (NEG-TRACE) MG/DL Urine Glucose (UA) NEG (NEG) MG/DL Urine Ketones 5 (NEG) MG/DL Urine Blood 1+ H (NEG) Urine Nitrite NEG (NEG) Ur Leukocyte Esterase NEG (NEG) Urine RBC 1-4 (0) /HPF Urine WBC 1-4 (0-4) /HPF Ur Squamous Epith Cells TRACE /LPF Urine Bacteria 1+ /LPF Urine Mucus TRACE /LPF Critical Care Time Critical Care Time Critical Care Time: No Discharge Plan Discharge Clinical Impression: Nephrolithiasis, Flank pain Patient Disposition: Still a Patient Prescriptions: No Action no.144-folic acid 400 mcg tablet,chewable 1 tab PO DAILY 180 Days Qty: 180 1RF
[2021-08-12] MEDS: 0.9 % Sodium Chloride 1,000 ML 999 ML IV ×2 (18:31→21:12)
[2021-08-12 18:35] LABS: MANUAL DIFF FLAG NO
[2021-08-12 18:36] LABS: Basophils Percent Auto 0.2 % (0-2); Eosinophils Percent Auto 0.2 % (0-4); Hematocrit 40.1 % (37.0-47.0); Hemoglobin 13.7 g/dl (12.0-16.0); Imm Gran Pct Auto 0.6 % (0.0-0.4); Lymphocytes Absolute Auto 2.3 X10*3/uL (1.2-4.9); Lymphocytes Percent Auto 13.4 % (20-40); Mean Corpuscular HGB Conc 34.2 g/dl (31.0-35.0); Mean Corpuscular Hemoglobin 30.3 pg (27.0-33.0); Mean Corpuscular Volume 88.7 fL (80.0-98.0); Mean Platelet Volume 10.8 fL (9.4-12.3); Monocytes Absolute Auto 0.8 X10*3/uL (0.1-1.2); Monocytes Percent Auto 4.9 % (2-11); Neutrophils Absolute Auto 13.6 x10*3/uL (2.0-8.3); Neutrophils Percent Auto 80.7 % (45-73); Platelet Count 261 X10*3/uL (160-400); Red Blood Count 4.52 X10*6/uL (4.20-5.50); White Blood Count 16.8 X10*3/uL (4.8-10.8)
[2021-08-12] MEDS: Morphine Sulfate 4 MG/ML CARTRIDGE IVPUSH (18:44)
[2021-08-12] MEDS: ondansetron HCL 4 MG/2 ML VIAL IVPUSH (18:44)
[2021-08-12 19:35] LABS: Alanine Aminotransferase 11 U/L (0-31); Albumin Level 4.2 g/dL (3.5-5.0); Alkaline Phosphatase 53 U/L (39-117); Anion Gap 18 (12-20); Aspartate Amino Transferase 23 U/L (5-31); Bilirubin Total 0.4 mg/dL (0.0-1.0); Blood Urea Nitrogen 8 mg/dL (9-16); Calcium 9.7 mg/dL (8.4-10.2); Carbon Dioxide 20 mmol/L (22-29); Chloride 103 mmol/L (96-108); Creatinine Clr Calc Pharmacy 93.9; Estimated Glomerular Filt Rate > 60; Glucose Random 102 mg/dL (60-115); Lipase 25 U/L (8-78); Potassium 4.5 mmol/L (3.3-5.1); Sodium 136 mmol/L (135-145); Total Protein 7.6 g/dL (6.5-8.0)
[2021-08-12 19:39] LABS: Appearance Urine CLEAR; Color Urine YELLOW; Glucose Urine UA NEG (NEG); Leukocyte Esterase Urine NEG (NEG); Nitrite Urine NEG (NEG); PH 5.5 (5.0-8.0); Specific Gravity - Urine >= 1.030 (1.005-1.025); UACC Culture Trigger NO; Urine Blood 1+ (NEG); Urine Ketones 5 MG/DL (NEG); Urine Protein NEG (NEG-TRACE)
[2021-08-12 19:40] LABS: Lactic Acid 1.4 mmol/L (0.5-2.0)
[2021-08-12 20:02] LABS: UACC CULT NO
[2021-08-12 20:03] LABS: Bacteria Urine 1+ /LPF; Squamous Epithelial Cell Urine TRACE /LPF
[2021-08-12 20:04] LABS: Mucus Urine TRACE /LPF
[2021-08-12 20:55] VITALS: BP 101/68; PULSE 84; RESP 16; TEMP 36.8
[2021-08-12] MEDS: Tamsulosin HCL 0.4 MG CAPSULE PO (20:55)
--- NOTE | 2021-08-12 21:14 | PC.NURSE ---
pt taken to ultra sound.
[2021-08-12 22:15] VITALS: BP 102/58; PULSE 82; RESP 16; TEMP 36.7; O2SAT 98
== END 2021-08-12 23:29 | disposition home or self-care (01) ==
PROVIDERS: Physician Assistant; Emergency Provider Internal Medicine
DX: O26.891 Other specified pregnancy related conditions, first trimester (principal); N13.2 Hydronephrosis with renal and ureteral calculous obstruction; R10.9 Unspecified abdominal pain; Z3A.11 11 weeks gestation of pregnancy; Z87.442 Personal history of urinary calculi
CPT/HCPCS: 36415; 76770; 76775; 76815; 76857; 80053; 81001; 83605; 83690; 84702; 85025; 87040; 96361; 96374; 96375; 99284; J2270; J2405

== ENCOUNTER 2021-08-13 17:13 | Emergency (ER) | payer OTHER, SELFPAY ==
[2021-08-13 17:15] VITALS: BP 137/79; PULSE 115; RESP 16; TEMP 36.9; O2SAT 98; BMI 27.3
[2021-08-13 17:57] LABS: MANUAL DIFF FLAG NO
[2021-08-13 18:01] LABS: Basophils Percent Auto 0.2 % (0-2); Eosinophils Percent Auto 0.2 % (0-4); Hematocrit 39.3 % (37.0-47.0); Hemoglobin 13.3 g/dl (12.0-16.0); Imm Gran Abs Auto 0.08 X10*3/uL (0.00-0.03); Imm Gran Pct Auto 0.4 % (0.0-0.4); Lymphocytes Absolute Auto 1.4 X10*3/uL (1.2-4.9); Lymphocytes Percent Auto 8.1 % (20-40); Mean Corpuscular HGB Conc 33.8 g/dl (31.0-35.0); Mean Corpuscular Hemoglobin 30.4 pg (27.0-33.0); Mean Corpuscular Volume 89.7 fL (80.0-98.0); Mean Platelet Volume 10.5 fL (9.4-12.3); Monocytes Absolute Auto 1.2 X10*3/uL (0.1-1.2); Monocytes Percent Auto 6.9 % (2-11); Neutrophils Absolute Auto 15.1 x10*3/uL (2.0-8.3); Neutrophils Percent Auto 84.2 % (45-73); Platelet Count 240 X10*3/uL (160-400); Red Blood Count 4.38 X10*6/uL (4.20-5.50); White Blood Count 17.9 X10*3/uL (4.8-10.8)
[2021-08-13 18:14] LABS: Alanine Aminotransferase 10 U/L (0-31); Albumin Level 4.1 g/dL (3.5-5.0); Alkaline Phosphatase 54 U/L (39-117); Anion Gap 12 (12-20); Aspartate Amino Transferase 14 U/L (5-31); Bilirubin Total 0.5 mg/dL (0.0-1.0); Blood Urea Nitrogen 4 mg/dL (9-16); Calcium 9.8 mg/dL (8.4-10.2); Carbon Dioxide 26 mmol/L (22-29); Chloride 102 mmol/L (96-108); Creatinine Clr Calc Pharmacy 105.6; Estimated Glomerular Filt Rate > 60; Glucose Random 101 mg/dL (60-115); Potassium 4.3 mmol/L (3.3-5.1); Sodium 136 mmol/L (135-145); Total Protein 7.3 g/dL (6.5-8.0)
[2021-08-13 21:12] VITALS: BP 126/75; PULSE 135; RESP 16; TEMP 37.1; O2SAT 98
[2021-08-13 21:45] LABS: Appearance Urine HAZY; Color Urine YELLOW; Glucose Urine UA NEG (NEG); Leukocyte Esterase Urine 2+ (NEG); Nitrite Urine NEG (NEG); UACC Culture Trigger YES; Urine Blood 1+ (NEG); Urine Ketones NEG (NEG); Urine Protein NEG (NEG-TRACE)
[2021-08-13 21:47] LABS: UPreg QC Valid YES; Urine Pregnancy POSITIVE (NEGATIVE)
[2021-08-13 22:17] LABS: Bacteria Urine TRACE /LPF; Mucus Urine 3+ /LPF; Squamous Epithelial Cell Urine 1+ /LPF
[2021-08-14] VITALS: BP 114/65; PULSE 113; RESP 16; TEMP 37.2; O2SAT 98
--- NOTE | 2021-08-14 00:44 | ED.ABDPAIN ---
HPI - Abdominal Pain General Chief Complaint: Abdominal Pain Stated Complaint: fever 100.4 was here last night for kidney stones Time Seen by Provider: 08/13/21 21:53 Source: patient Mode of arrival: ambulatory History of Present Illness HPI narrative: 30-year-old female who arrives with complaints of worsening of right lower quadrant/flank pain (she was seen here yesterday) as well as reports of fever and chills but denies any nausea, vomiting, or diarrhea. In addition, patient denies any vaginal bleeding or urinary pain/burning/frequency. When asked about the pain she states that it is sharp but does not radiate to the anterior abdomen and is constant. She states that the pain makes her want to ?keep moving?. Related Data Previous Rx's Medication Instructions Recorded vitamins no.144-folic 1 tab PO DAILY 180 Days #180 tab 08/01/21 acid 400 mcg chewable tablet Allergies Allergy/AdvReac Type Severity Reaction Status Date / Time Penicillins Allergy Severe ANAPHYLAXIS Verified 08/01/21 11:46 penicillin V Allergy Unknown anaphylaxis Verified 08/01/21 11:46 Review of Systems Review of Systems Pertinent positives and negatives as stated HPI 10 point review of systems is otherwise negative. PMFSH Past Medical History Source: nursing notes reviewed Surgical History Hx of section Social History Social History Patient Tobacco Use Status: Former Tobacco user Advance Directives: No Physical Exam ED Vital Signs: Vital Signs - 24 hr 08/13/21 17:15 08/13/21 21:12 08/14/21 00:00 Temperature 98.5 F 98.7 F 99.0 F Pulse Rate 115 H 135 H 113 H Respiratory Rate 16 16 16 Blood Pressure 137/79 126/75 114/65 Pulse Oximetry 98 98 98 BMI result Body Mass Index 27.3 VITAL SIGNS: Reviewed. GENERAL: Well developed, well nourished, in no acute distress. HEAD: Normocephalic/atraumatic EYES: PERRLA, EOMI EARS: Ext canals without abnormality OROPHARYNX: no oral lesions noted, posterior pharynx clear LUNGS: Normal breath sounds. No adventitious sounds or accessory muscle use. SpO2<98> CARDIOVASCULAR: Regular rate and rhythm without noted murmurs ABDOMEN: Soft, tenderness set right posterior back and patient with significant tenderness over right lower quadrant, Rovsing's is negative, non-distended with bowel sounds. MUSCULOSKELETAL: No tenderness, deformities, or effusions noted on gross inspection. EXTREMITIES: No cyanosis, clubbing or edema. SKIN: Inspection of the skin reveals no rashes NEUROLOGIC: Alert and oriented x 4. ED bedside ultrasound: Gallbladder without cholelithiasis/no gallbladder wall thickening/no pericholecystic fluid noted. Right kidney with noted hydronephrosis consistent with yesterday's findings as well as identification of the 5 mm kidney stone, evaluation of ureteral jets both left and right are present. Course Course Course Narrative: 30-year-old female with history and clinical presentation although possibly renal colic I have high suspicion that appendicitis is still on the differential. There is hematuria suggestive of renal colic. I discussed this case with Dr. Sharp and he agrees that patient would be best transferred for imaging. In the meantime, patient has been provided with IV fluids, antibiotics, as well as pain medication. Reevaluation(s) Reevaluation #1: Call to [facility] Time: 00:57 Reevaluation #2: I discussed case with Dr. Katz at [facility] who accepts admission to the ED. Time: 01:18 MDM - Abdominal Pain Lab Data Result diagrams: 08/13/21 17:52 08/13/21 17:52 Labs: Lab Results 08/13/21 08/13/21 08/13/21 Range/Units 17:52 17:52 21:23 WBC 17.9 H (4.8-10.8) X10*3/uL RBC 4.38 (4.20-5.50) X10*6/uL Hgb 13.3 (12.0-16.0) g/dl Hct 39.3 (37.0-47.0) % MCV 89.7 (80.0-98.0) fL MCH 30.4 (27.0-33.0) pg MCHC 33.8 (31.0-35.0) g/dl RDW 13.0 (11.0-16.0) % Plt Count 240 (160-400) X10*3/uL MPV 10.5 (9.4-12.3) fL Immature Gran % (Auto) 0.4 (0.0-0.4) % Neut % (Auto) 84.2 H (45-73) % Lymph % (Auto) 8.1 L (20-40) % [place] % (Auto) 6.9 (2-11) % Eos % (Auto) 0.2 (0-4) % Baso % (Auto) 0.2 (0-2) % Lymph # (Auto) 1.4 (1.2-4.9) X10*3/uL [place] # (Auto) 1.2 (0.1-1.2) X10*3/uL Eos # (Auto) 0.0 (0.0-0.4) X10*3/uL Baso # (Auto) 0.0 (0.0-0.2) X10*3/uL Abs Immat Gran (auto) 0.08 H (0.00-0.03) X10*3/uL Absolute Neuts (auto) 15.1 H (2.0-8.3) x10*3/uL Absolute Nucleated RBC 0.000 (0.0-0.012) X10*3/uL Nucleated RBC % (auto) 0.0 (0.0-0.2) /100WBC Sodium 136 (135-145) mmol/L Potassium 4.3 (3.3-5.1) mmol/L Chloride 102 (96-108) mmol/L Carbon Dioxide 26 (22-29) mmol/L Anion Gap 12 (12-20) BUN 4 L (9-16) mg/dL Creatinine 0.66 (0.5-1.4) mg/dL Estim Creat Clear Calc 105.6 Estimated GFR > 60 Random Glucose 101 (60-115) mg/dL Calcium 9.8 (8.4-10.2) mg/dL Total Bilirubin 0.5 (0.0-1.0) mg/dL AST 14 (5-31) U/L ALT 10 (0-31) U/L Alkaline Phosphatase 54 (39-117) U/L Total Protein 7.3 (6.5-8.0) g/dL Albumin 4.1 (3.5-5.0) g/dL Urine Color YELLOW Urine Appearance HAZY Urine pH 6.0 (5.0-8.0) Ur Specific [place] 1.020 (1.005-1.025) Urine Protein NEG (NEG-TRACE) MG/DL Urine Glucose (UA) NEG (NEG) MG/DL Urine Ketones NEG (NEG) MG/DL Urine Blood 1+ H (NEG) Urine Nitrite NEG (NEG) Ur Leukocyte Esterase 2+ H (NEG) Urine RBC 10-14 H (0) /HPF Urine WBC 10-14 H (0-4) /HPF Ur Squamous Epith Cells 1+ /LPF Urine Bacteria TRACE /LPF Urine Mucus 3+ /LPF Urine Test (NEGATIVE) COVID-19 (ADRIANA) (Negative) COVID-19 Clin Com 08/13/21 08/14/21 Range/Units 21:23 00:42 WBC (4.8-10.8) X10*3/uL RBC (4.20-5.50) X10*6/uL Hgb (12.0-16.0) g/dl Hct (37.0-47.0) % MCV (80.0-98.0) fL MCH (27.0-33.0) pg MCHC (31.0-35.0) g/dl RDW (11.0-16.0) % Plt Count (160-400) X10*3/uL MPV (9.4-12.3) fL Immature Gran % (Auto) (0.0-0.4) % Neut % (Auto) (45-73) % Lymph % (Auto) (20-40) % [place] % (Auto) (2-11) % Eos % (Auto) (0-4) % Baso % (Auto) (0-2) % Lymph # (Auto) (1.2-4.9) X10*3/uL [place] # (Auto) (0.1-1.2) X10*3/uL Eos # (Auto) (0.0-0.4) X10*3/uL Baso # (Auto) (0.0-0.2) X10*3/uL Abs Immat Gran (auto) (0.00-0.03) X10*3/uL Absolute Neuts (auto) (2.0-8.3) x10*3/uL Absolute Nucleated RBC (0.0-0.012) X10*3/uL Nucleated RBC % (auto) (0.0-0.2) /100WBC Sodium (135-145) mmol/L Potassium (3.3-5.1) mmol/L Chloride (96-108) mmol/L Carbon Dioxide (22-29) mmol/L Anion Gap (12-20) BUN (9-16) mg/dL Creatinine (0.5-1.4) mg/dL Estim Creat Clear Calc Estimated GFR Random Glucose (60-115) mg/dL Calcium (8.4-10.2) mg/dL Total Bilirubin (0.0-1.0) mg/dL AST (5-31) U/L ALT (0-31) U/L Alkaline Phosphatase (39-117) U/L Total Protein (6.5-8.0) g/dL Albumin (3.5-5.0) g/dL Urine Color Urine Appearance Urine pH (5.0-8.0) Ur Specific [place] (1.005-1.025) Urine Protein (NEG-TRACE) MG/DL Urine Glucose (UA) (NEG) MG/DL Urine Ketones (NEG) MG/DL Urine Blood (NEG) Urine Nitrite (NEG) Ur Leukocyte Esterase (NEG) Urine RBC (0) /HPF Urine WBC (0-4) /HPF Ur Squamous Epith Cells /LPF Urine Bacteria /LPF Urine Mucus /LPF Urine Test POSITIVE H (NEGATIVE) COVID-19 (ADRIANA) Negative (Negative) COVID-19 Clin Com See Note Discharge Plan Discharge Clinical Impression: Abdominal pain, Patient Disposition: Xfer [facility] Transfer Details: Patient needed imaging to distinguish ureterolithiasis versus appendicitis Prescriptions: No Action no.144-folic acid 400 mcg tablet,chewable 1 tab PO DAILY 180 Days Qty: 180 1RF
--- NOTE | 2021-08-14 00:51 | PC.NURSE ---
CALL OUT TO [facility] TRANSFER LINE @[phone]
--- NOTE | 2021-08-14 00:53 | P.CONOB_ITS ---
OB Consult Note - [facility] Data Service Date: 08/14/21 Requesting Physician: I was consulted by Dr. Cinthia Seymour regarding this patient who is a 30-year-old at 11 and 1 day of gestation with history of renal colic and flank pain. The patient had an evaluation done yesterday in the emergency room which showed the following: White count 16.9, normal H&H. Urine negative leukocyte esterase +1 blood. Renal ultrasound done yesterday showed: Mild right renal hydronephrosis and hydroureter, the ureter is about 8 mm raising concern for possible distal obstruction. There is nonobstructing stone in the right kidney 5 mm. ?Left kidney is unremarkable. Ob ultrasound done yesterday in the emergency room showed intrauterine at 11 weeks of gestation. The patient's pain had improved yesterday, there was hydronephrosis on the right side but the ureteral jets were good and her abdominal pain has improved prior to discharge. The patient was discharged home, to came back to the emergency room today complaining of fever, chills, no nausea or vomiting diarrhe a or dysuria. Today the workup included the following: UA shows leukocyte esterase, and microscopic blood. White count showed leukocytosis at 17.9 K, creatinine within normal. On exam per Dr. Seymour, the patient has right lower quadrant tenderness and increased flank pain. Bedside ultrasound by Dr. Seymour, did not show gallbladder wall thickening or any pericholecystic fluid and no cholelithiasis. No ultrasound or MRI available . 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 Review of Systems ROS Unobtainable: All systems reviewed & are unremarkable except as noted in HPI and below Cardiovascular: Denies Palpatations, Loss of consciousness or Chest pain Respiratory: Denies Cough, Wheezing or Shortness of breath Musculoskeletal: Denies Low back pain Gastrointestinal: Denies Heartburn, Constipation, Diarrhea, Nausea or Vomiting Genitourinary: Denies Pain with urination, Burning with urination or Urinary frequency Neurological: Denies Migranes Psychological: Denies Depression OB [facility] Surgical History Surgical History Hx of section Social History Social History Patient Tobacco Use Status: Former Tobacco user Advance Directives: No Meds Allergies Allergy/AdvReac Type Severity Reaction Status Date / Time Penicillins Allergy Severe ANAPHYLAXIS Verified 08/01/21 11:46 penicillin V Allergy Unknown anaphylaxis Verified 08/01/21 11:46 Active Medications: Current Medications Sodium Chloride (Ns) 1,000 mls @ 999 mls/hr IV .Q1H1M TYESHA Stop: 08/14/21 01:30 Ceftriaxone Sodium 1 gm/ (Sodium Chloride) 50 mls @ 100 mls/hr IV ONCE ONE Stop: 08/14/21 01:19 OB Flowsheet OB Flowsheet & Tools History 3 Elective abortions Para Spontaneous abortions Hx # Term Pregnancies Ectopic pregnancies Hx # Pregnancies Multiple births OB Physical Exam Physical Exam Additional Comments: Exam reported by Dr. Seymour: Right lower quadrant abdominal tenderness and increased CVA tenderness OB Consult Results Labs CBC & Chem 7: 08/13/21 17:52 08/13/21 17:52 Labs: Short CBC 08/13/21 Range/Units 17:52 WBC 17.9 H (4.8-10.8) X10*3/uL Hgb 13.3 (12.0-16.0) g/dl Hct 39.3 (37.0-47.0) % Plt Count 240 (160-400) X10*3/uL BMP 08/13/21 17:52 Sodium 136 Potassium 4.3 Chloride 102 Carbon Dioxide 26 BUN 4 L Creatinine 0.66 Calcium 9.8 Liver Function 08/13/21 Range/Units 17:52 Total Bilirubin 0.5 (0.0-1.0) mg/dL AST 14 (5-31) U/L ALT 10 (0-31) U/L Alkaline Phosphatase 54 (39-117) U/L Albumin 4.1 (3.5-5.0) g/dL Urine 08/13/21 08/13/21 Range/Units 21:23 21:23 Urine Color YELLOW Urine Appearance HAZY Urine pH 6.0 (5.0-8.0) Ur Specific [place] 1.020 (1.005-1.025) Urine Protein NEG (NEG-TRACE) MG/DL Urine Glucose (UA) NEG (NEG) MG/DL Urine Test POSITIVE H (NEGATIVE) OB - CN: A/P Assessment and Plan (1) Early stage of : Status: Acute Assessment and Plan: Possible differential diagnosis includes but not limited to, pyelonephritis, but since appendicitisis not be ruled out, I recommended to Dr. Seymour that since appendicitis is in differential diagnosis and needs to be ruled out, in early it is better to avoid radiation exposure therefore ultrasound and/or MRI should be use instead of CT scan. Recommended to transfer the patient to a facility where they are available. Dr. Myrick stated that she will give her a dose of antibiotic and transfer the patient out to [place] I was consulted by text regarding this patient, I not see the patient nor examined her.
[2021-08-14] MEDS: 0.9 % Sodium Chloride 1,000 ML 999 ML IV (01:00)
[2021-08-14 01:03] LABS: COVID-19 Test Negative (Negative)
[2021-08-14] MEDS: cefTRIAXone sodium 1 GM in 0.9 % Sodium Chloride 50 ML IV (01:27)
[2021-08-14] MEDS: Acetaminophen 325 MG TABLET 975 MG PO (01:33)
[2021-08-14 01:46] VITALS: BP 102/71; PULSE 106; RESP 16; O2SAT 99
== END 2021-08-14 02:10 | disposition short-term general hospital (02) ==
PROVIDERS: Emergency Provider Student in an Organized Health Care Education/Training Program
DX: R50.9 Fever, unspecified (principal); Z79.899 Other long term (current) drug therapy; Z20.822 Contact with and (suspected) exposure to COVID-19
CPT/HCPCS: 36415; 80053; 81001; 81025; 85025; 87086; 87635; 96365; 96366; 99285; J0696

== ENCOUNTER → 2021-08-15 15:19 | Outpatient (BNVA) | payer OTHER, SELFPAY | PROVIDERS: Visit Provider Obstetrics & Gynecology ==

== ENCOUNTER → 2021-08-24 10:01 | Outpatient (BNVA) | payer OTHER, SELFPAY | PROVIDERS: Visit Provider Advanced Practice Midwife | DX: O23.01 Infections of kidney in pregnancy, first trimester (principal) | CPT/HCPCS: 99212 ==

== ENCOUNTER 2021-09-01 08:47 | Outpatient (REF) | payer OTHER, SELFPAY ==
--- NOTE | ~2021-09-01 | US_ITS ---
EXAMINATION: OBSTETRICAL ULTRASOUND, FIRST TRIMESTER HISTORY: 30-year-old at the 14.0 weeks of gestation NT screening COMPARISON: 08/12/2021 TECHNIQUE: Real time transabdominal imaging with color and M-mode Doppler. FINDINGS: A single, live IUP CRL of 79.6 mm c/w 14.6wks is noted. Heart Rate: 147 beats per minute. Normal yolk sac seen. NT was 1.6.mm. NB Present The embryo appears sonographically wnl for this GA. Both maternal ovaries are seen and appear normal. GESTATIONAL AGE: 1. Established GA: 14.0 wks 2. GA from [facility]: 14.0 wks ESTIMATED DATE OF DELIVERY: 1. Established [facility]: 03/02/2022 2. HARPER from [facility]: 03/02/2022 US/US OB 1T nuc measure IMPRESSION: 1. A single live IUP 2. Size equals dates 3. NT of 1.6 mm MFM Consultation: I reviewed the ultrasound findings along with significance of NT measurement. The NT of less than 3mm is generally reassuring. However, the sensitivity for T21 detection is only 60%. I reviewed the availability of serum aneuploidy screening which includes cell-free DNA and placental protein based tests. I discussed the sensitivity, false-positive rate, and other limitations associated with each test. I also reviewed the availability of invasive diagnostic tests that are associated small but definite risk of miscarriage. We also reviewed the differences between screening tests and diagnostic tests. After our discussion, she opted for the First trimester screening that is based on cell-free DNA or non-invasive testing (NIPT). The result will be faxed to your office in approximately 7 days. A follow up at 18 weeks for survey has been scheduled. Thank you very much for this referral. Total time 30 minutes. The time spent was devoted to counseling the patient about the disease and diagnosis, coordinating care including reviewing her records, pertinent lab data and studies, as well as discussing diagnostic evaluation and workup, plan therapeutic interventions and future disposition of care. This includes any additional research needed to obtain further information in formulating the plan of care of this patient. This note was generated with a voice recognition program. Please excuse any errors which may have been overlooked during my review of this note. Sometimes these errors may affect the content or meaning of a given sentence.
== END 2021-09-01 08:48 | disposition home or self-care (01) ==
LOC: HO.US 08:47
PROVIDERS: Visit Provider Obstetrics & Gynecology
DX: Z34.92 Encounter for supervision of normal pregnancy, unspecified, second trimester (principal); Z3A.14 14 weeks gestation of pregnancy
CPT/HCPCS: 76813

== ENCOUNTER 2021-09-07 10:49 | Outpatient (REF) | payer OTHER, SELFPAY ==
[2021-09-08 09:43] LABS: BV Int Neg Control Negative (Negative); BV Int Pos Control Positive (Positive)
[2021-09-08 09:46] LABS: CT PCR NOT DETECTED (Not Detect.); NG PCR NOT DETECTED (Not Detect.)
== END 2021-09-07 10:50 | disposition home or self-care (01) ==
LOC: HO.LAB 10:49
PROVIDERS: Visit Provider Advanced Practice Midwife
DX: O26.892 Other specified pregnancy related conditions, second trimester (principal); N20.0 Calculus of kidney; Z3A.14 14 weeks gestation of pregnancy
CPT/HCPCS: 81003; 87480; 87491; 87510; 87591; 87660; 88142; 99212

== ENCOUNTER 2021-09-26 09:20 | Outpatient (REF) | payer OTHER, SELFPAY ==
[2021-09-26 11:04] LABS: Hematocrit 38.9 % (37.0-47.0); Hemoglobin 12.6 g/dl (12.0-16.0); Mean Corpuscular HGB Conc 32.4 g/dl (31.0-35.0); Mean Corpuscular Hemoglobin 30.3 pg (27.0-33.0); Mean Corpuscular Volume 93.5 fL (80.0-98.0); Mean Platelet Volume 10.6 fL (9.4-12.3); Platelet Count 243 X10*3/uL (160-400); Red Blood Count 4.16 X10*6/uL (4.20-5.50); Red Cell Distribution Width 13.2 % (11.0-16.0); White Blood Count 13.6 X10*3/uL (4.8-10.8)
[2021-09-26 12:10] LABS: Glucose 1 Hour PP 50gm Dose 134 mg/dL (60-140)
[2021-09-26 12:53] LABS: Amphetamine Screen Urine Not Detected (Not Detect); Barbiturates, Urine Not Detected (Not Detect); Benzodiazepines Screen Urine Not Detected (Not Detect); Cannabinoid Screen Urine Not Detected (Not Detect); Cocaine Screen Urine Not Detected (Not Detect); Fentanyl, urine Not Detected (Not Detect); Opiate Screen Urine Not Detected (Not Detect); Phencyclidine Screen Urine Not Detected (Not Detect)
[2021-09-27 08:27] LABS: ~HepC Num1 0.08 S/CO (0.00-0.79); ~Hepatitis C Antibody Nonreactive (Nonreactive)
[2021-09-27 08:38] LABS: Syphilis Screen Nonreactive (Nonreactive)
[2021-09-27 08:54] LABS: HBsAGNum1 0.13 S/CO (0.00-0.99); HIV AB/AG Nonreactive (Nonreactive); HIV Num 1 0.08 S/CO (0.00-0.99); Hepatitis B Surface Antigen Negative (Negative)
[2021-09-28 07:07] LABS: Rubella IgG Antibody 5.53 Index
== END 2021-09-26 09:21 | disposition home or self-care (01) ==
LOC: HO.LAB 09:20
PROVIDERS: Visit Provider Advanced Practice Midwife
DX: Z32.01 Encounter for pregnancy test, result positive (principal)
CPT/HCPCS: 80307; 85027; 86762; 86780; 86787; 86803; 86850; 86900; 86901; 87086; 87340; 87389

== ENCOUNTER → 2021-10-05 08:51 | Outpatient (BNVA) | payer OTHER, SELFPAY | PROVIDERS: Visit Provider Advanced Practice Midwife | DX: O34.219 Maternal care for unspecified type scar from previous cesarean delivery (principal); Z3A.18 18 weeks gestation of pregnancy; Z87.442 Personal history of urinary calculi | CPT/HCPCS: 81003; 99212 ==

== ENCOUNTER 2021-10-06 08:55 | Outpatient (REF) | payer OTHER, SELFPAY ==
--- NOTE | ~2021-10-06 | US_ITS ---
EXAMINATION: US OBSTETRICAL CLINICAL INFORMATION: 30-year-old at the 19.0 weeks of gestation Screening for anomaly COMPARISON: 09/01/2021 TECHNIQUE: Real-time transabdominal ultrasound was performed using C1-5 megahertz transducer. FINDINGS: A single, active, fetus is seen in breech presentation. The placenta is posterior fundal, and the amniotic fluid volume is wnl. MEASUREMENTS: 1. Biparietal Diameter: 4.2 cm; 18.5 wks 2. Occipital Frontal Diameter: 85.9 cm 3. Head Circumference: 16.0 cm; 18.6 wks 4. Abdominal Circumference: 13.4 cm; 19.0 wks 5. Femur Length: 2.9 cm; 18.6 wks 6. Humerus Length: 2.73 cm; 18.5 wks 7. Tibia Length: 2.6 cm; 19.1 wks 8. Ulna Length: 2.5 cm; 19.0 wks 9. Lateral ventricle: 0.74 cm 10. Cerebellum: 1.9 cm; 19.4 wks 11. Cisterna Magna: 0.51 cm 12. Nuchal Fold: 4.1 mm 13. Heart Rate: 153 beats per minute Rt ovary: normal Lt ovary: normal Cervical length 3.7 cm on T/A. GESTATIONAL AGE: 1. Established GA: 19.0 wks 2. GA from [facility]: 18.6 wks ESTIMATED DATE OF DELIVERY: 1. Established HARPER: 03/02/2022 2. HARPER from [facility]: 03/03/2022 ANATOMY: The evaluation of the cardiac, renal and spine anatomy were suboptimal due to position. The visualized anatomy includes but not limited to: 1. Cranium: Normal 2. Intracranial anatomy: cavum septum pellucidi, lateral ventricles, choroid plexus, cerebellum, posterior fossa, third and fourth ventricles. 3. face: orbits, lip/palate, profile, nasal bone 4. Heart: Limited due to position.. 5. Diaphragm: Normal 6. Abdominal wall: Normal 7. Cord Insertion: Normal 8. Spine: Suboptimal 9. Stomach: Normal size and shape 10. Right Kidney: Suboptimal 11. Left Kidney: Suboptimal 12. 3 vessel cord: Normal 13. Upper extremity: Open hands, fifth digit. 14. Lower extremity: Tibia, fibula, bilateral feet. 15. Bladder: Normal 16. Genitalia: Female, patient aware US/US OB /maternal detail IMPRESSION: 1. Single, living, intrauterine with appropriate biometry. 2. Limited the survey due to the position. No abnormalities were seen in visualized anatomy. RECOMMENDATIONS: 1. A follow-up has been scheduled in 2 weeks. Thank you for allowing me to participate in her care. This note was generated with a voice recognition program. Please excuse any errors which may have been overlooked during my review of this note. Sometimes these errors may affect the content or meaning of a given sentence.
== END 2021-10-06 08:56 | disposition home or self-care (01) ==
LOC: HO.US 08:55
PROVIDERS: Visit Provider Obstetrics & Gynecology
DX: Z34.92 Encounter for supervision of normal pregnancy, unspecified, second trimester (principal); Z36.3 Encounter for antenatal screening for malformations; Z3A.19 19 weeks gestation of pregnancy; Z98.890 Other specified postprocedural states
CPT/HCPCS: 76811

== ENCOUNTER 2021-10-27 08:44 | Outpatient (REF) | payer OTHER, SELFPAY ==
--- NOTE | ~2021-10-27 | US_ITS ---
EXAMINATION: OBSTETRICAL ULTRASOUND, Follow up HISTORY: 30-year-old at 22.0 weeks of gestation Incomplete survey Size date discrepancy COMPARISON: 10/06/2021 TECHNIQUE: Real time transabdominal imaging with color and M-mode Doppler. PRESENTATION: Vertex PLACENTA LOCATION: Posterior without previa AMNIOTIC FLUID: Normal MEASUREMENTS: 1. Biparietal Diameter: 5.2 cm; 22.0 wks 2. Head Circumference: 28.1 cm; 22.2 wks 3. Abdominal Circumference: 17.22 cm; 22.2 wks 4. Femur Length: 3.8 cm; 22.1 wks 5. Heart Rate: 143 beats per minute WEIGHT: Estimated weight is 479 grams (1 lbs 1 oz) -- 51 %. Normal views of lateral cerebral ventricle, profile, nose/lips, 4ch view, LVOT, RVOT, 3 vessel trachea view, aortic and ductal arches. GESTATIONAL AGE: 1. Established GA: 22.0 wks 2. GA from [facility]: 22.2 wks ESTIMATED DATE OF DELIVERY: 1. Established [facility]: 03/02/2022 2. HARPER from [facility]: 02/28/2022 US/US OB follow up IMPRESSION: 1. A single fetus with appropriate interval growth. 2. Previously limited views of the anatomy were seen as listed above. No abnormalities were noted in visualized anatomy. 3. This completes the survey. I reviewed the limitations of ultrasound in diagnosing aneuploidy and other congenital abnormalities. Amniocentesis was again reviewed and she declined. She was informed that the baseline instance of congenital abnormalities and defects in the general population is approximately 3-5%. Not all these conditions are diagnosable in utero. RECOMMENDATIONS: 1. f/u PRN Thank you very much for this referral. Total time 20 minutes. The time spent was devoted to counseling the patient about the disease and diagnosis, coordinating care including reviewing her records, pertinent lab data and studies, as well as discussing diagnostic evaluation and workup, plan therapeutic interventions and future disposition of care. This includes any additional research needed to obtain further information in formulating the plan of care of this patient. This note was generated with a voice recognition program. Please excuse any errors which may have been overlooked during my review of this note. Sometimes these errors may affect the content or meaning of a given sentence.
== END 2021-10-27 08:45 | disposition home or self-care (01) ==
LOC: HO.US 08:44
PROVIDERS: Visit Provider Advanced Practice Midwife
DX: O26.842 Uterine size-date discrepancy, second trimester (principal); Z3A.22 22 weeks gestation of pregnancy
CPT/HCPCS: 76816

== ENCOUNTER → 2021-11-02 08:48 | Outpatient (BNVA) | payer OTHER, SELFPAY | PROVIDERS: Visit Provider Advanced Practice Midwife | DX: O26.02 Excessive weight gain in pregnancy, second trimester (principal); Z98.891 History of uterine scar from previous surgery; Z3A.22 22 weeks gestation of pregnancy | CPT/HCPCS: 81003; 99212 ==

== ENCOUNTER → 2021-11-30 08:54 | Outpatient (BNVA) | payer OTHER, SELFPAY | PROVIDERS: Visit Provider Advanced Practice Midwife | DX: Z34.92 Encounter for supervision of normal pregnancy, unspecified, second trimester (principal); Z98.891 History of uterine scar from previous surgery; Z3A.26 26 weeks gestation of pregnancy | CPT/HCPCS: 99212 ==

== ENCOUNTER 2021-12-12 09:52 | Outpatient (REF) | payer OTHER, SELFPAY ==
[2021-12-12 12:11] LABS: Hematocrit 34.5 % (37.0-47.0); Hemoglobin 10.6 g/dl (12.0-16.0); Mean Corpuscular HGB Conc 30.7 g/dl (31.0-35.0); Mean Corpuscular Hemoglobin 26.3 pg (27.0-33.0); Mean Corpuscular Volume 85.6 fL (80.0-98.0); Mean Platelet Volume 10.7 fL (9.4-12.3); Platelet Count 193 X10*3/uL (160-400); Red Blood Count 4.03 X10*6/uL (4.20-5.50); Red Cell Distribution Width 14.2 % (11.0-16.0); White Blood Count 11.2 X10*3/uL (4.8-10.8)
[2021-12-12 13:37] LABS: Glucose 1 Hour PP 50gm Dose 224 mg/dL (60-140)
[2021-12-13 06:02] LABS: Syphilis Screen Nonreactive (Nonreactive)
== END 2021-12-12 09:53 | disposition home or self-care (01) ==
LOC: HO.LAB 09:52
PROVIDERS: Advanced Practice Midwife; Visit Provider Advanced Practice Midwife
DX: O36.63X0 Maternal care for excessive fetal growth, third trimester, not applicable or unspecified (principal); O99.810 Abnormal glucose complicating pregnancy; O23.00 Infections of kidney in pregnancy, unspecified trimester; O09.299 Supervision of pregnancy with other poor reproductive or obstetric history, unspecified trimester; O34.211 Maternal care for low transverse scar from previous cesarean delivery; Z3A.28 28 weeks gestation of pregnancy; Z23 Encounter for immunization
CPT/HCPCS: 36415; 81003; 85027; 86780; 90471; 90715; 99212

== ENCOUNTER → 2021-12-14 13:02 | Outpatient (BNVA) | payer OTHER, SELFPAY | PROVIDERS: Visit Provider Advanced Practice Midwife | DX: O24.419 Gestational diabetes mellitus in pregnancy, unspecified control (principal); Z3A.28 28 weeks gestation of pregnancy; Z71.89 Other specified counseling | CPT/HCPCS: 99211 ==

== ENCOUNTER 2021-12-15 10:57 | Outpatient (REF) | payer OTHER, SELFPAY ==
--- NOTE | ~2021-12-15 | US_ITS ---
EXAMINATION: OBSTETRICAL ULTRASOUND, Follow up HISTORY: 31-year-old at 29.0 weeks of gestation GDM High BMI Size date discrepancy COMPARISON: 10/27/2021 TECHNIQUE: Real time transabdominal imaging with color and M-mode Doppler. PRESENTATION: Vertex PLACENTA LOCATION: Posterior without previa AMNIOTIC FLUID: DVP: 5.3 cm MEASUREMENTS: 1. Biparietal Diameter: 7.5 cm; 30.0 wks 2. Head Circumference: 27.5 cm; 30.1 wks 3. Abdominal Circumference: 26.2 cm; 30.3 wks 4. Femur Length: 5.6 cm; 29.3 wks 5. Heart Rate: 138 beats per minute WEIGHT: EFW: 1503 grams (3 lbs 5 oz) -- 76 %. GESTATIONAL AGE: 1. Established GA: 29.0 wks 2. GA from [facility]: 30.0 wks ESTIMATED DATE OF DELIVERY: 1. Established HARPER: 03/02/2022 2. HARPER from [facility]: 02/23/2022 US/US OB follow up IMPRESSION: 1. A single active fetus is seen in vertex presentation. 2. Size equals dates 3. Normal amniotic fluid volume She reports that her 1 hour GLT was elevated. Rather than going through the 3 hr GTT. She started monitoring her fingerstick glucose. States that her fasting this morning was 135. She has GDM consultation scheduled at [facility] on January 04. She did not have GDM in her previous . The orally reviewed the clinical consequences of suboptimally controlled maternal glucose in . Thank you very much for this referral. Total time 30 minutes. The time spent was devoted to counseling the patient about the disease and diagnosis, coordinating care including reviewing her records, pertinent lab data and studies, as well as discussing diagnostic evaluation and workup, plan therapeutic interventions and future disposition of care. This includes any additional research needed to obtain further information in formulating the plan of care of this patient. This note was generated with a voice recognition program. Please excuse any errors which may have been overlooked during my review of this note. Sometimes these errors may affect the content or meaning of a given sentence.
== END 2021-12-15 10:58 | disposition home or self-care (01) ==
LOC: HO.US 10:57
PROVIDERS: Visit Provider Advanced Practice Midwife
DX: O36.63X0 Maternal care for excessive fetal growth, third trimester, not applicable or unspecified (principal); Z3A.29 29 weeks gestation of pregnancy
CPT/HCPCS: 76816

== ENCOUNTER 2023-04-30 16:11 | Inpatient (IN) | payer OTHER, SELFPAY ==
--- NOTE | ~2023-04-30 | CT_ITS ---
EXAMINATION: CT ABDOMEN AND PELVIS WITHOUT CONTRAST CLINICAL INFORMATION: Right flank pain; history of urinary calculi. COMPARISON: Renal ultrasound dated 08/12/2021; CT abdomen dated 04/15/2021. TECHNIQUE: Multidetector volumetric imaging was performed from the superior aspect of the liver through the pubic symphysis. Sagittal and coronal reformatted images were obtained on the technologist's workstation. This CT examination was performed using dose optimization techniques as appropriate, variously including the following: *Automated exposure control *Adjustment of mA and/or kV according to patient size (this includes techniques or standardized protocols for targeted exams where dose is matched to indication/reason for exam; i.e. extremities or head) *Use of iterative reconstruction technique DLP: 514 mGy-cm FINDINGS: LUNG BASES: There is bibasilar dependent hypoaeration, left greater than right. LIVER, GALLBLADDER, AND BILIARY TREE: The liver is normal in size, shape, and attenuation. Within segment 7 laterally (10:39), a 7 mm low-attenuation cyst is incidentally noted. This requires no imaging follow-up. No biliary ductal dilatation is present. The gallbladder is unremarkable, with no evidence of radiopaque gallstones, gallbladder wall thickening or obvious pericholecystic inflammatory change. PANCREAS: Unremarkable. SPLEEN: Unremarkable. ADRENAL GLANDS: Unremarkable. KIDNEYS AND URETERS: The kidneys are normal in size, shape, and attenuation. At the interpolar aspect of the right kidney (5:215), a 3 mm nonobstructing calculus is seen. At the lower pole of the right kidney (5:245 and 248), there are 1 mm and 3 mm nonobstructing calculi. There is moderately severe right hydronephroureter secondary to a 7 mm calculus situated at the ureterovesicular junction. At the interpolar aspect of the left kidney (5:188), a 1 mm nonobstructing calculus is seen. At the lower pole of the left kidney (5:221 and 233), there are 2 nonobstructing 1 mm calculi. No left ureteric calculus or hydronephroureter is seen. BLADDER: Unremarkable. GASTROINTESTINAL TRACT: There is mild diverticulosis, without acute diverticulitis. No bowel obstruction, free intraperitoneal air or abscess is seen. There is no focal bowel wall thickening. The vermiform appendix appears normal. ABDOMINAL WALL: There is a small fat-containing umbilical hernia. LYMPH NODES: Normal. VASCULAR: Unremarkable. PELVIC VISCERA: The uterus and adnexa are unremarkable. OSSEOUS STRUCTURES: Unremarkable. FREE FLUID: There is a small amount of low-attenuation free fluid in the cul-de-sac. CT/CT abdomen pelvis wo IV con IMPRESSION: 1. There are tiny nonobstructing bilateral renal calculi. There is moderate to severe right hydronephroureter secondary to a 7 mm calculus at the ureterovesicular junction. 2. There is mild diverticulosis, without acute diverticulitis. 3. There is a small fat-containing umbilical hernia. Fleischner guidelines were followed.
--- NOTE | ~2023-04-30 | FL_ITS ---
EXAMINATION: XR FL WITH IMAGES IN OR CLINICAL INFORMATION: Cystoscopy. COMPARISON: Previous CT of the abdomen and pelvis 04/30/2023. TECHNIQUE: Fluoroscopy Supervised By: Dr. Vargas. Fluoroscopy Time: 14 seconds. Cumulative Dose: 4.2 mGy. DAP: Not applicable. Images: 1. FINDINGS: Single image demonstrates the distal end of a right internal stent. FL/FL guidance in OR IMPRESSION: Fluoroscopy guidance for urology procedure.
[2023-04-30 16:16] VITALS: BP 130/81; PULSE 70; RESP 18; TEMP 36.8; O2SAT 100; BMI 24.8
--- NOTE | 2023-04-30 16:17 | ED_ITS ---
HPI - Abdominal Pain General Chief Complaint: Abdominal Pain Stated Complaint: ?Kidney stone Time Seen by Provider: 04/30/23 17:44 Source: patient and RN notes reviewed Mode of arrival: ambulatory Limitations: no limitations History of Present Illness HPI narrative: This is a 32-year-old female presenting to the emergency department for evaluation of right-sided flank pain x1 hour. Patient has a history of kidney stones in her symptoms feel exactly like her kidney stone she has had in the past. She had to have ureter stented 3 years ago. She is endorsing nausea and vomiting. No fevers or chills. Patient audibly moaning, appearing very uncomfortable secondary to right-sided flank pain. MD elicited complaint: abdominal pain Pain Consistency: constant Location: R flank Severity: severe Quality: stabbing Radiation: none Migration to: no migration Exacerbating factors: nothing Relieving factors: nothing Associated symptoms: nausea and vomiting Related Data Previous Rx's Medication Instructions Recorded levofloxacin 500 mg tablet 500 mg PO DAILY 7 days #7 tabs 05/03/23 oxybutynin chloride 5 mg 5 mg PO BID bladder spasms #40 tabs 05/03/23 tablet,extended release 24 hr oxycodone-acetaminophen 5 mg-325 1 tab PO Q6H PRN pain #10 tabs 05/03/23 mg tablet (Percocet) Allergies Allergy/AdvReac Type Severity Reaction Status Date / Time Penicillins Allergy Severe ANAPHYLAXIS Verified 11/02/21 08:49 Review of Systems Review of Systems Yes all other systems are reviewed and are negative Constitutional: Reports as per HPI [facility] Past Medical History Attestation statement: The following information was validated with the patient. Medical History Bacteremia Renal calculus Kidney infection in mother during first trimester of Surgical History Hx of section Family History Family History Maternal Grandmother Diabetes mellitus Mother Lupus Social History Social History Household Members: Family Both parents involved: No Caregiver staying overnight: No Housing: Apartment Are you a primary direct care specialist to a significant other at home: No Do you presently have visiting nurse or other home services: No 75 years or older and lives alone: No Alcohol intake: never Patient Tobacco Use Status: Former Tobacco user Agree to transfusion: Yes service: No Current occupational status: employed Current occupation: chirag Current occupational exposures/hazards: No Cognitive needs: No Hearing needs: No Vision needs: No Physical Exam ED Vital Signs: Vital Signs - 24 hr 04/30/23 16:16 04/30/23 18:46 Temperature 98.3 F 98.1 F Pulse Rate 70 66 Respiratory Rate 18 20 Blood Pressure 130/81 104/58 L Pulse Oximetry 100 98 Oxygen Delivery Method Room Air Room Air BMI result Body Mass Index 24.8 Const General: cooperative, comfortable and no acute distress Orientation/consciousness: patient oriented x3 Limitations: no limitations HENMT Head: Yes normal to inspection, Yes normocephalic and Yes atraumatic Ears: hearing grossly normal bilaterally General nose exam: Normal external nose present Face and sinus: Yes normal facial exam Mouth: Normal oral and palatal mucosa present, oropharynx normal and moist mucous membranes Throat: Yes posterior oropharynx normal Eyes General: appearance normal, both eyes and all related structures Eyelids: Yes eyelids normal Conjunctivae: conjunctivae normal Sclerae: sclerae normal Pupils: Equal, round and reactive pupils present EOM: EOMs intact bilaterally Neck Neck: Yes normal visual inspection, Yes full ROM and Yes no lymphadenopathy Lymphatic: no lymphadenopathy noted Chest Chest palpation & inspection: normal inspection of the chest Resp Effort & Inspection: normal respiratory effort and able to speak in complete sentences Auscultation: clear to auscultation bilaterally, no crackles, no rales, no rhonchi and no wheezes Cardio Rate: regular rate Rhythm: regular rhythm Heart sounds: S1 normal heart sound present and S2 normal heart sound present GI Other: Abdomen is soft, nondistended, no tenderness palpation throughout entire abdomen. No rebound or guarding. Inspection: Yes normal to inspection Other: +right flank pain Skin General skin exam: no rashes or lesions noted Trauma: no lacerations or abrasions Wounds: no wounds Neuro General: patient oriented x3 and moves all extremities Cranial nerves: Yes Equal, round and reactive pupils present Extrem General: Yes normal to inspection Right upper extremity: normal to inspection Left upper extremity: normal to inspection Right lower extremity: normal to inspection Left lower extremity: normal to inspection Course Course Course Narrative: This is an RME: Additional HPI, ROS, PE not included below will be deferred to primary provider. Patient is a 32-year-old female who presents emergency department for evaluation of R flank pain. Onset 1 hour MULESER, suddenly, hx renal calculi, this feels similar. Denies genitourinary symptoms, fevers, chills, nausea, vomiting. Notable R CVA tenderness. Plan: Labs, UA, hCG, CT AP Reevaluation(s) Reevaluation #1: Abdomen is nontender, soft, nondistended.. Blood work returns, H&H low at 8.8 and 33.9. Lipase elevated at 102. Creatinine 0.8, BUN 8. Liver enzymes within normal limits, alk-phos 66. Urine with small blood, small leuk esterases, rbc's and wbc's. Urine negative. Microcytic anemia noted with an MCV of 63.1. Patient reports that she did have vaginal spotting last week, she had a tubal ligation 1 year ago and states that her periods have been irregular. Patient denies any hematuria. Patient pain and nausea improved, however now pain returning. Nausea has since resolved. Given worsening pain, will medicate with Dilaudid 0.5mg IV again. Rectal exam was performed at bedside with ITALO Hewitt, stool brown, no blood noted. Stool occult sent to lab. Sign out given to colleague, Jeffery Martinez pending CT abdomen and pelvis Reevaluation #2: Patient's CT scan says shows a 7 mm obstructive stone at the right UVJ causing moderate to severe hydroureteronephrosis. On evaluation the patient still continues to have 10/10 pain to the right flank. She has received Toradol, Dilaudid 0.5 mg IV x2 doses. I sent a tiger text message to the covering urologist given the patient's discomfort and large. Patient's renal function is baseline and there is no sign of UTI. Patient reports that she has very heavy menstrual cycle which is irregular and she occasionally bleeds for 2 months. Her last menstrual cycle ended 2 weeks ago. This is likely the cause of the patient's anemia. She reports that she is not currently taking iron but understands that she should be. Time: 20:48 Reevaluation #3: Discussed with Dr. Vargas, urology who recommends scan the patient's pain under control and discharged the patient with prednisone, Flomax. I discussed the patient has already received Toradol 30 mg IV, Dilaudid 0.5 mg IV x2 and is still complaining of 10/10 pain. There is no evidence of respiratory depression. The patient is awake, and oriented and groaning in pain. I will give her 1 more dose of Dilaudid 1 mg IV and reassess. If unable to get the patient comfortable, will consider admission for pain control. Of note, patient's guaiac was negative Time: 20:59 Additional Reevaluation(s): Patient continues to complain of 10/10 right flank pain is now vomiting. I discussed with Urology again and the patient will be admitted to the services of Dr. Vargas Medical Decision Making Medical Decision Making [facility] Narrative: This is a 32-year-old female presenting to the emergency department with complaints of right-sided flank pain x1 hour. Patient has a history of kidney stones. States that her symptoms feel similar. She is moaning in pain, she has right-sided CVA tenderness on examination. Unable to get further physical exam findings given level of pain. Will medicate and re-evaluate. Plan: Labs, CT abdomen and pelvis, UA, U preg Differential Diagnosis Differential Diagnoses: The differential diagnosis associated with the presentation includes nephrolithiasis, pyelonephritis, hydronephrosis, renal colic Admission/Observation Consideration of admission/observation: Escalation of care including admission/observation considered Patient would have been admitted to the hospital had her work up had any findings where hospital admission was appropriate and her clinical presentation warranted hospital admission. Lab Data [facility] Lab Attestation statement: I reviewed the patient's lab results. 05/03/23 09:06 05/02/23 05:35 Labs: Lab Results 04/30/23 04/30/23 Range/Units 16:51 21:17 WBC 7.6 (4.8-10.8) X10*3/uL RBC 5.37 D (4.20-5.50) X10*6/uL Hgb 8.8 L (12.0-16.0) g/dl Hct 33.9 L (37.0-47.0) % MCV 63.1 L (80.0-98.0) fL MCH 16.4 L (27.0-33.0) pg MCHC 26.0 L (31.0-35.0) g/dl RDW 20.8 H (11.0-16.0) % Plt Count 331 D (160-400) X10*3/uL MPV 10.1 (9.4-12.3) fL Immature Gran % (Auto) 0.3 (0.0-0.4) % Neut % (Auto) 64.3 (45-73) % Lymph % (Auto) 27.7 (20-40) % Anderson % (Auto) 6.3 (2-11) % Eos % (Auto) 0.7 (0-4) % Baso % (Auto) 0.7 (0-2) % Lymph # (Auto) 2.1 (1.2-4.9) X10*3/uL Anderson # (Auto) 0.5 (0.1-1.2) X10*3/uL Eos # (Auto) 0.1 (0.0-0.4) X10*3/uL Baso # (Auto) 0.1 (0.0-0.2) X10*3/uL Abs Immat Gran (auto) 0.02 (0.00-0.03) X10*3/uL Absolute Neuts (auto) 4.9 (2.0-8.3) x10*3/uL Absolute Nucleated RBC 0.000 (0.0-0.012) X10*3/uL Nucleated RBC % (auto) 0.0 (0.0-0.2) /100WBC Smear Tech's Comments VERIFIED Smear Path Review SEE NOTE Sodium 140 (135-145) mmol/L Potassium 3.8 (3.3-5.1) mmol/L Chloride 105 (96-108) mmol/L Carbon Dioxide 27 (22-29) mmol/L Anion Gap 12 (12-20) BUN 8 L (9-16) mg/dL Creatinine 0.80 (0.5-1.4) mg/dL Estim Creat Clear Calc 92.2 Estimated GFR > 60 Random Glucose 116 H (60-115) mg/dL Calcium 9.2 D (8.4-10.2) mg/dL Total Bilirubin 0.6 (0.0-1.0) mg/dL AST 27 (5-31) U/L ALT 25 (0-31) U/L Alkaline Phosphatase 66 (39-117) U/L Total Protein 8.1 H (6.5-8.0) g/dL Albumin 4.6 (3.5-5.0) g/dL Lipase 102 H (8-78) U/L Urine Color Yellow Urine Appearance Clear Urine pH 5.5 (5.0-9.0) Ur Specific Rochelle 1.010 (1.005-1.025) Urine Protein Negative (Neg-Trace) mg/dL Urine Glucose (UA) Negative (Negative) mg/dL Urine Ketones Negative (Negative) mg/dL Urine Blood Small (1+) H (Negative) Urine Nitrite Negative (Negative) Ur Leukocyte Esterase Small (1+) H (Negative) Urine RBC >20 H (0-2) /HPF Urine WBC 6-10 H (0-5) /HPF Ur Squamous Epith Cells 3-5 (0-2) /HPF Urine Bacteria Trace (None Seen) Hyaline Casts 0-2 (0-2) /LPF Urine Test NEGATIVE (NEGATIVE) Stool Occult Blood NEGATIVE (NEGATIVE) Radiology Impression Discussion of test interpretation with radiology: I have reviewed the radiologist's reading. External Record Review External record reviewed: Inpatient record, Office record, Outpatient record, Prior outpatient labs, Prior outpatient radiology, Primary care record and Outside ED record Medications Administered Discontinued Medications Generic Name Dose Route Start Last Admin Trade Name Joshuaq PRN Reason Stop Dose Admin Acetaminophen 650 mg 04/30/23 22:22 05/02/23 17:50 Acetaminophen 325 Mg Tablet PO 650 mg Q4H PRN Administration Pain, Mild (Pain Scale 1-3) Acetaminophen 650 mg 05/01/23 14:21 05/01/23 18:35 Acetaminophen 325 Mg Tablet PO 650 mg ONCE PRN Administration Pain, Mild (Pain Scale 1-3) Hydrocodone Bitart/Acetaminophen 1 tab 04/30/23 22:30 05/02/23 16:56 Hydrocodone Bit/Acetam 7.5/325 Tablet PO Not Given Q4H TYESHA Ascorbic Acid 500 mg 05/01/23 11:00 05/03/23 07:30 Ascorbic Acid 500 Mg Tablet PO 500 mg DAILY TYESHA Administration Docusate Sodium 100 mg 05/01/23 09:00 05/03/23 07:31 Docusate Sodium 100 Mg Capsule PO 100 mg BID TYESHA Administration Ferrous Sulfate 324 mg 05/01/23 11:00 05/03/23 07:31 Ferrous Sulfate 324 Mg Tablet. PO 324 mg BIDWM TYESHA Administration Hydromorphone HCl 0.5 mg 04/30/23 17:46 04/30/23 18:01 Hydromorphone Hcl 0.5 Mg/0.5 Ml Syringe IVPUSH 04/30/23 17:47 0.5 mg ONCE ONE Administration Protocol Hydromorphone HCl 0.5 mg 04/30/23 19:32 04/30/23 19:38 Hydromorphone Hcl 0.5 Mg/0.5 Ml Syringe IVPUSH 04/30/23 19:33 0.5 mg ONCE ONE Administration Protocol Hydromorphone HCl 1 mg 04/30/23 20:58 04/30/23 21:14 Hydromorphone Hcl 1 Mg/Ml Syringe IVPUSH 04/30/23 20:59 1 mg ONCE ONE Administration Protocol Hydromorphone HCl 0.5 mg 04/30/23 22:22 05/02/23 04:58 Hydromorphone Hcl 1 Mg/Ml Syringe IVPUSH 0.5 mg Q3H PRN Administration Pain, Severe (Pain Scale 7-10) Protocol Sodium Chloride 1,000 mls @ 999 mls/hr 04/30/23 17:47 04/30/23 18:58 Ns IV 04/30/23 18:47 Infused .Q1H1M ONE Infusion Promethazine HCl 12.5 mg/ 50.5 mls @ 202 mls/hr 04/30/23 17:46 04/30/23 19:43 Sodium Chloride IV 04/30/23 17:47 Infused ONCE ONE Infusion Levofloxacin 500 mg in 100 mls @ 100 mls/hr 04/30/23 22:16 05/01/23 01:47 Levaquin IV 04/30/23 23:15 Infused PREOP ONE Infusion Dextrose/Lactated Ringer's 1,000 mls @ 100 mls/hr 04/30/23 22:30 05/01/23 01:50 D5lr IVCONT Infused .Q10H TYESHA Infusion Sodium Chloride 500 mls @ 500 mls/hr 04/30/23 23:45 05/01/23 01:47 Ns IV 05/01/23 00:44 Infused .Q1H TYESHA Infusion Lactated Ringer's 1,000 mls @ 100 mls/hr 05/01/23 00:30 05/02/23 13:37 Lr IVCONT Infused .Q10H TYESHA Infusion Gentamicin Sulfate 160 mg/ 104 mls @ 100 mls/hr 05/01/23 13:33 05/02/23 09:05 Sodium Chloride IV 05/01/23 14:35 Not Given ONCE ONE Gentamicin Sulfate 160 mg/ 104 mls @ 100 mls/hr 05/01/23 14:00 05/01/23 17:00 Sodium Chloride IV 05/01/23 15:02 Infused ONCE ONE Infusion Levofloxacin 500 mg in 100 mls @ 100 mls/hr 05/02/23 07:30 05/03/23 08:39 Levaquin IV Infused Q24H TYESHA Infusion Iron Sucrose 200 mg/ Sodium 110 mls @ 440 mls/hr 05/02/23 09:00 05/03/23 09:32 Chloride IV 05/04/23 09:14 Infused DAILY TYESHA Infusion Lactated Ringer's 1,000 mls @ 75 mls/hr 05/02/23 09:15 05/03/23 08:45 Lr IVCONT Infused .[id number] TYESHA Infusion Ibuprofen 400 mg 05/02/23 15:57 05/02/23 16:32 Ibuprofen 400 Mg Tablet PO 05/02/23 15:58 400 mg ONCE ONE Administration Ketorolac Tromethamine 30 mg 04/30/23 17:46 04/30/23 17:56 Ketorolac Tromethamine 30 Mg/Ml Vial IVPUSH 04/30/23 17:47 30 mg ONCE ONE Administration Ondansetron HCl 4 mg 04/30/23 16:53 04/30/23 16:56 Ondansetron Odt 4 Mg Tab.Rapdis TRANSLINGU 04/30/23 16:54 4 mg ONCE ONE Administration Ondansetron HCl 4 mg 04/30/23 22:22 04/30/23 23:03 Ondansetron Hcl 4 Mg/2 Ml Vial IVPUSH 4 mg Q6H PRN Administration Nausea and Vomiting Oxybutynin Chloride 5 mg 05/02/23 09:00 05/03/23 07:30 Oxybutynin Chloride Er 5 Mg Tab.Er.24 PO 5 mg BID TYESHA Administration Oxycodone HCl 5 mg 05/01/23 14:21 05/01/23 18:35 Oxycodone Hcl Immed Release 5 Mg Tablet PO 5 mg ONCE PRN Administration Pain, Severe (Pain Scale 7-10) Phenazopyridine HCl 100 mg 05/01/23 17:00 05/03/23 07:30 Phenazopyridine Hcl 100 Mg Tablet PO 05/03/23 12:01 100 mg TIDWM TYESHA Administration Sodium Chloride 3 ml 05/01/23 00:00 05/03/23 07:31 0.9 % Sodium Chloride Flush 3 Ml Syringe IVFLUSH Not Given QSHIFT [facility] Discharge Plan Discharge Clinical Impression: Anemia, Renal calculus Patient Disposition: Still a Patient Interventions: Admission Worksheet (ED) Last Done: 05/01/23 12:57 Discharge Date/Time: 05/01/23 12:58
[2023-04-30] MEDS: Ondansetron ODT 4 MG TAB.RAPDIS TRANSLINGU (16:56)
[2023-04-30 16:57] LABS: Hemoglobin 8.8 g/dl (12.0-16.0); Imm Gran Abs Auto 0.02 X10*3/uL (0.00-0.03); Imm Gran Pct Auto 0.3 % (0.0-0.4); MANUAL DIFF FLAG SCAN; SCAN SMEAR FLAG 1
[2023-04-30 16:59] LABS: Basophils Absolute Auto 0.1 X10*3/uL (0.0-0.2); Basophils Percent Auto 0.7 % (0-2); Eosinophils Absolute Auto 0.1 X10*3/uL (0.0-0.4); Eosinophils Percent Auto 0.7 % (0-4); Hematocrit 33.9 % (37.0-47.0); Lymphocytes Absolute Auto 2.1 X10*3/uL (1.2-4.9); Lymphocytes Percent Auto 27.7 % (20-40); Mean Corpuscular Hemoglobin 16.4 pg (27.0-33.0); Mean Platelet Volume 10.1 fL (9.4-12.3); Monocytes Absolute Auto 0.5 X10*3/uL (0.1-1.2); Monocytes Percent Auto 6.3 % (2-11); Neutrophils Absolute Auto 4.9 x10*3/uL (2.0-8.3); Neutrophils Percent Auto 64.3 % (45-73); Platelet Count 331 X10*3/uL (160-400); Red Blood Count 5.37 X10*6/uL (4.20-5.50); Red Cell Distribution Width 20.8 % (11.0-16.0); White Blood Count 7.6 X10*3/uL (4.8-10.8)
[2023-04-30 17:02] LABS: UPreg QC Valid YES; Urine Pregnancy NEGATIVE (NEGATIVE)
[2023-04-30 17:04] LABS: Appearance Urine Clear; Color Urine Yellow; Glucose Urine UA Negative (Negative); Leukocyte Esterase Urine Small (1+) (Negative); Nitrite Urine Negative (Negative); PH 5.5 (5.0-9.0); UMIC TRIGGER UACC YES; Urine Blood Small (1+) (Negative); Urine Ketones Negative (Negative); Urine Protein Negative (Neg-Trace)
[2023-04-30 17:10] LABS: Mean Corpuscular Volume 63.1 fL (80.0-98.0); PLT ABN DIST 1
[2023-04-30 17:12] LABS: Alanine Aminotransferase 25 U/L (0-31); Albumin Level 4.6 g/dL (3.5-5.0); Alkaline Phosphatase 66 U/L (39-117); Anion Gap 12 (12-20); Aspartate Amino Transferase 27 U/L (5-31); Bilirubin Total 0.6 mg/dL (0.0-1.0); Blood Urea Nitrogen 8 mg/dL (9-16); Calcium 9.2 mg/dL (8.4-10.2); Carbon Dioxide 27 mmol/L (22-29); Chloride 105 mmol/L (96-108); Creatinine Clr Calc Pharmacy 92.2; Estimated Glomerular Filt Rate > 60; Glucose Random 116 mg/dL (60-115); Lipase 102 U/L (8-78); Potassium 3.8 mmol/L (3.3-5.1); Sodium 140 mmol/L (135-145); Total Protein 8.1 g/dL (6.5-8.0)
[2023-04-30 17:19] LABS: Bacteria Urine Trace (None Seen); Hyaline Casts Urine 0-2 /LPF (0-2); RBC Urine >20 /HPF (0-2); UACC Culture Trigger YES
[2023-04-30] MEDS: Ketorolac Tromethamine 30 MG/ML VIAL IVPUSH (17:56)
[2023-04-30] MEDS: 0.9 % Sodium Chloride 1,000 ML 999 ML IV (17:57)
[2023-04-30 17:58] LABS: SLIDE REVIEW VERIFIED
[2023-04-30] MEDS: HYDROmorphone HCl 0.5 MG/0.5 ML SYRINGE IVPUSH ×2 (18:01→19:38)
--- NOTE | 2023-04-30 18:07 | PC.NURSE ---
Patient presents with extreme flank pain, patient not able to answer many questions as she is in distress from pain. IV placed and medications administered per AUG.
[2023-04-30 18:46] VITALS: BP 104/58; PULSE 66; RESP 20; TEMP 36.7; O2SAT 98
[2023-04-30] MEDS: HYDROmorphone HCl 1 MG/ML SYRINGE IVPUSH (21:14)
[2023-04-30 21:22] LABS: OBS Int Ctl Valid YES; OBS1 NEGATIVE (NEGATIVE)
--- NOTE | 2023-04-30 22:10 | PHA.MEDREC ---
Pharmacy Consult ? Medication Reconciliation Pharmacy has completed the medication reconciliation. Patient reports no medications at home. Leah Sandoval, AnibalD
[2023-04-30] MEDS: Dextrose 5 % and Lactated Ring 1,000 ML 100 ML IVCONT (23:03)
[2023-04-30] MEDS: ondansetron HCL 4 MG/2 ML VIAL IVPUSH (23:03)
[2023-04-30 23:40] VITALS: BP 112/59; PULSE 118; RESP 20; TEMP 37.9; O2SAT 97
[2023-05-01] VITALS (17 sets, daily range): BP systolic 89–114; BP diastolic 49–75; PULSE 71–100; RESP 14–18; TEMP 36.3–36.8; O2SAT 95–100
[2023-05-01] MEDS: levoFLOXacin/D5W 500 MG/100 ML PIGGYBACK 100 MG IV (00:08)
[2023-05-01] MEDS: 0.9 % Sodium Chloride 500 ML IV (00:08)
[2023-05-01] MEDS: HYDROcodone Bit/Acetam 7.5/325 TABLET 1 TAB PO ×6 (00:44→21:47)
[2023-05-01] MEDS: Lactated Ringers 1,000 ML 100 ML IVCONT (01:41)
--- NOTE | 2023-05-01 06:35 | PC.NURSE ---
Pharmacy called regarding Lorcet not in the pyxis. Pt will be medicated once pharmacy loads this medication in the pyxis.
--- NOTE | 2023-05-01 07:08 | P.HPGS_ITS ---
History of Present Illness History of Present Illness Date of Service: 05/01/23 Chief complaint: ureteral stone, hydronephrosis Narrative: Ana Biggs is a 32 year old female is a 32-year-old female presenting to the emergency department for evaluation of right-sided flank pain. Patient has a history of kidney stones and states she had to have ureter stented 3 years ago. She has nausea and vomiting. Had fever overnight. Hb low on blood work. Review of Systems Review of Systems: Yes all other systems are reviewed and are negative Constitutional: Constitutional: Reports no additional constitutional complaints Eyes: Eyes: Reports no additional eye complaints ENT: Reports system reviewed and no additional complaints, except as documented Cardiovascular: Cardiovascular: Denies dyspnea Respiratory: Respiratory: Denies cough and Denies dyspnea Gastrointestinal: Gastrointestinal: Reports no additional gastrointestinal complaints Genitourinary: Genitourinary: Reports no additional female genitourinary complaints Musculoskeletal: Musculoskeletal: Reports no additional musculoskeletal complaints Integumentary/Breasts: Skin/Breast: Denies rash and Denies unusual bruising Neurologic: Reports system reviewed and no additional complaints, except as documented Psychiatric: Psychiatric: Reports no additional psychiatric complaints Endocrine: Endocrine: Reports no additional endocrine complaints Hematologic/Lymphatic: Hematologic/Lymphatic: Reports no additional hematologic/lymphatic complaints Allergic/Immunologic: Allergic/Immunologic: Reports no additional allergic/immunologic complaints [facility] Past Medical History Medical History Bacteremia Renal calculus Kidney infection in mother during first trimester of Family History Family History Maternal Grandmother Diabetes mellitus Mother Lupus Surgical History Surgical History Hx of section Social History Social History Household Members: Significant Other and Children Housing: Apartment Are you a primary childbirth and infant care teacher to a significant other at home: No Do you presently have visiting nurse or other home services: No Alcohol intake: never Patient Tobacco Use Status: Former Tobacco user Smoked in Last 30 Days: No Use of substances other than those prescribed or required for medical reasons: No Agree to transfusion: Yes Advance Directives: No Advance Directives Information Provided: No Nutrition Risks: No Nutritional Risk service: No Current occupational status: employed Current occupation: chirag Current occupational exposures/hazards: No Cognitive needs: No Hearing needs: No Vision needs: No Meds Allergies Allergy/AdvReac Type Severity Reaction Status Date / Time Penicillins Allergy Severe ANAPHYLAXIS Verified 11/02/21 08:49 Active Medications: Current Medications Acetaminophen (Acetaminophen 325 Mg Tablet) 650 mg PO Q4H PRN PRN Reason: Pain, Mild (Pain Scale 1-3) Hydrocodone Bitart/Acetaminophen (Hydrocodone Bit/Acetam 7.5/325 Tablet) 1 tab PO Q4H [facility] Last Admin: 05/01/23 03:19 Dose: 1 tab Docusate Sodium (Docusate Sodium 100 Mg Capsule) 100 mg PO BID TYESHA Hydromorphone HCl (Hydromorphone Hcl 1 Mg/Ml Syringe) 0.5 mg IVPUSH Q3H PRN; Protocol PRN Reason: Pain, Severe (Pain Scale 7-10) Lactated Ringer's (Lr) 1,000 mls @ 100 mls/hr IVCONT .Q10H [facility] Last Admin: 05/01/23 01:41 Dose: 100 mls/hr Ondansetron HCl (Ondansetron Hcl 4 Mg/2 Ml Vial) 4 mg IVPUSH Q6H PRN PRN Reason: Nausea and Vomiting Last Admin: 04/30/23 23:03 Dose: 4 mg Sodium Chloride (0.9 % Sodium Chloride Flush 3 Ml Syringe) 3 ml IVFLUSH QSHIFT [facility] Last Admin: 05/01/23 00:08 Dose: Not Given Home Medications Medication Instructions Recorded Confirmed Last Taken Type No Known Home Meds 04/30/23 05/01/23 Unknown History Physical Exam Vital Signs: Vital Signs: Last Vital Signs Temp 100.2 F 04/30/23 23:40 Pulse 118 H 04/30/23 23:40 Resp 20 04/30/23 23:40 BP 112/59 L 04/30/23 23:40 Pulse Ox 97 04/30/23 23:40 O2 Del Method Room Air 04/30/23 23:40 BMI result Body Mass Index 24.8 Const: General: cooperative, healthy appearing and no acute distress Orientation/consciousness: patient oriented x3 HEENT: Head: Yes normal to inspection, Yes normocephalic and Yes atraumatic Eyes: Conjunctivae: conjunctivae normal Neck: Neck: Yes normal visual inspection and Yes trachea midline Chest: Chest palpation & inspection: normal inspection of the chest Resp: Effort & Inspection: normal respiratory effort Cardio: Rate: regular rate GI: Inspection: Yes normal to inspection Palpation (GI): Soft to palpation : General: Yes CVA tenderness on the right Back/Spine/Pelvis: Back: CVA tenderness Skin: General skin exam: no rashes or lesions noted Neuro: General: patient oriented x3 Extrem: General: No edema Psych: Appearance: grossly normal Results Results Labs: Short CBC 04/30/23 Range/Units 16:51 WBC 7.6 (4.8-10.8) X10*3/uL Hgb 8.8 L (12.0-16.0) g/dl Hct 33.9 L (37.0-47.0) % Plt Count 331 D (160-400) X10*3/uL BMP 04/30/23 16:51 Sodium 140 Potassium 3.8 Chloride 105 Carbon Dioxide 27 BUN 8 L Creatinine 0.80 Calcium 9.2 D Liver Function 04/30/23 Range/Units 16:51 Total Bilirubin 0.6 (0.0-1.0) mg/dL AST 27 (5-31) U/L ALT 25 (0-31) U/L Alkaline Phosphatase 66 (39-117) U/L Albumin 4.6 (3.5-5.0) g/dL Urine 04/30/23 Range/Units 16:51 Urine Color Yellow Urine Appearance Clear Urine pH 5.5 (5.0-9.0) Ur Specific [place] 1.010 (1.005-1.025) Urine Protein Negative (Neg-Trace) mg/dL Urine Glucose (UA) Negative (Negative) mg/dL Urine Test NEGATIVE (NEGATIVE) Abdomen CT scan report/results: report reviewed and image reviewed CT scan - pelvis: report reviewed and image reviewed Additional studies: Date of Service: 04/30/23 EXAMINATION: CT ABDOMEN AND PELVIS WITHOUT CONTRAST CLINICAL INFORMATION: Right flank pain; history of urinary calculi. COMPARISON: Renal ultrasound dated 08/12/2021; CT abdomen dated 04/15/2021. TECHNIQUE: Multidetector volumetric imaging was performed from the superior aspect of the liver through the pubic symphysis. Sagittal and coronal reformatted images were obtained on the technologist's workstation. This CT examination was performed using dose optimization techniques as appropriate, variously including the following: *Automated exposure control *Adjustment of mA and/or kV according to patient size (this includes techniques or standardized protocols for targeted exams where dose is matched to indication/reason for exam; i.e. extremities or head) *Use of iterative reconstruction technique DLP: 514 mGy-cm FINDINGS: LUNG BASES: There is bibasilar dependent hypoaeration, left greater than right. LIVER, GALLBLADDER, AND BILIARY TREE: The liver is normal in size, shape, and attenuation. Within segment 7 laterally (10:39), a 7 mm low-attenuation cyst is incidentally noted. This requires no imaging follow-up. No biliary ductal dilatation is present. The gallbladder is unremarkable, with no evidence of radiopaque gallstones, gallbladder wall thickening or obvious pericholecystic inflammatory change. PANCREAS: Unremarkable. SPLEEN: Unremarkable. ADRENAL GLANDS: Unremarkable. KIDNEYS AND URETERS: The kidneys are normal in size, shape, and attenuation. At the interpolar aspect of the right kidney (5:215), a 3 mm nonobstructing calculus is seen. At the lower pole of the right kidney (5:245 and 248), there are 1 mm and 3 mm nonobstructing calculi. There is moderately severe right hydronephroureter secondary to a 7 mm calculus situated at the ureterovesicular junction. At the interpolar aspect of the left kidney (5:188), a 1 mm nonobstructing calculus is seen. At the lower pole of the left kidney (5:221 and 233), there are 2 nonobstructing 1 mm calculi. No left ureteric calculus or hydronephroureter is seen. BLADDER: Unremarkable. GASTROINTESTINAL TRACT: There is mild diverticulosis, without acute diverticulitis. No bowel obstruction, free intraperitoneal air or abscess is seen. There is no focal bowel wall thickening. The vermiform appendix appears normal. ABDOMINAL WALL: There is a small fat-containing umbilical hernia. LYMPH NODES: Normal. VASCULAR: Unremarkable. PELVIC VISCERA: The uterus and adnexa are unremarkable. OSSEOUS STRUCTURES: Unremarkable. FREE FLUID: There is a small amount of low-attenuation free fluid in the cul-de-sac. IMPRESSION: 1. There are tiny nonobstructing bilateral renal calculi. There is moderate to severe right hydronephroureter secondary to a 7 mm calculus at the ureterovesicular junction. 2. There is mild diverticulosis, without acute diverticulitis. 3. There is a small fat-containing umbilical hernia. Assessment and Plan (1) Renal calculus: Status: Acute (2) Ureteral calculus, right: Status: Acute (3) Hydronephrosis: Status: Acute (4) Anemia: Status: Acute Plan Routine Medicine consult for anemia. Received IV Levaquin Plan for Cystoscopy, Right ureteroscopy, possible laser lithotripsy, ureteral stent. Risks discussed included but not limited to, possible need to repeat procedure if stone is not completely fragmented, Irritative voiding symptoms, bladder spasms, urgency, blood in urine. Quality Stroke Does the patient have a stroke diagnosis?: No VTE Prior VTE?: No VTE Risk Level:: Surgical - low VTE Device Contraindication: N/A - Device Ordered VTE Drug Contraindication: Treatment Not Indicated Procedures Date of Service Date of Service: 05/01/23
[2023-05-01 07:45] LABS: Anion Gap 12 (12-20); Carbon Dioxide 24 mmol/L (22-29); Chloride 107 mmol/L (96-108); Potassium 4.4 mmol/L (3.3-5.1); Sodium 139 mmol/L (135-145)
[2023-05-01] MEDS: Docusate Sodium 100 MG CAPSULE PO ×2 (07:55→21:46)
[2023-05-01] MEDS: HYDROmorphone HCl 1 MG/ML SYRINGE 0.5 MG IVPUSH (07:56)
[2023-05-01] MEDS: 0.9 % Sodium Chloride Flush 3 ML SYRINGE IVFLUSH (07:57)
--- NOTE | 2023-05-01 08:03 | PC.NURSE ---
PT IS /O X 4 NO SOB/MARCUS NOTED SPEAKS IN FULL SENTENCES. DR. FLOYD CALLED STATING THAT THE PT IS NPO AND IS ON AN ADD-ON SCHEDULE FOR 1400. PT CAN HAVE SIPS OF WATER WITH PO MEDS. PT IS AWARE OF PLAN OF CARE. PT IS ADMITTED.
--- NOTE | 2023-05-01 08:07 | MHC.CM.PN ---
PT REPORTS SHE LIVES WITH HER S/O AND CHILDREN SHE WORKS AND IS INDEPENDENT WITH CARE SHE DENIES USE OF DME OR HOME SERVICES SHE DECLINES TO COMPLETE A HCP SHE DOES NOT HAVE A PCP, SHE IS INTERESTED IN BEING SET UP WITH ONE TASK SENT TO CM OFFICE DCP: HOME NO SERVICES VIA FAMILY TRANSPORT
[2023-05-01 08:24] LABS: Basophils Absolute Auto 0.1 X10*3/uL (0.0-0.2); Basophils Percent Auto 0.2 % (0-2); Hematocrit 29.9 % (37.0-47.0); Hemoglobin 7.8 g/dl (12.0-16.0); Imm Gran Abs Auto 0.81 X10*3/uL (0.00-0.03); Imm Gran Pct Auto 2.8 % (0.0-0.4); Lymphocytes Absolute Auto 0.6 X10*3/uL (1.2-4.9); MANUAL DIFF FLAG SCAN; Mean Corpuscular HGB Conc 26.1 g/dl (31.0-35.0); Mean Corpuscular Hemoglobin 16.5 pg (27.0-33.0); Mean Platelet Volume 10.4 fL (9.4-12.3); Monocytes Absolute Auto 0.7 X10*3/uL (0.1-1.2); Monocytes Percent Auto 2.4 % (2-11); Neutrophils Percent Auto 92.6 % (45-73); Platelet Count 249 X10*3/uL (160-400); Red Blood Count 4.73 X10*6/uL (4.20-5.50); Red Cell Distribution Width 20.2 % (11.0-16.0); SCAN SMEAR FLAG 1
[2023-05-01 08:28] LABS: Mean Corpuscular Volume 63.2 fL (80.0-98.0)
[2023-05-01 08:31] LABS: White Blood Count 29.2 X10*3/uL (4.8-10.8)
--- NOTE | 2023-05-01 08:39 | PC.NURSE ---
DR. IRVIN CONSULTING, PT AWARE OF PLAN OF CARE.
[2023-05-01 08:51] LABS: Iron 6 mcg/dL (30-160); Percent Iron Saturation 2 % (15-50); Total Iron Binding Capacity 307 mcg/dL (228-428); Unsaturated Iron Binding 301 ug/dL
[2023-05-01 08:54] LABS: SLIDE REVIEW VERIFIED
--- NOTE | 2023-05-01 09:00 | PC.NURSE ---
rn to rn report givn to wilfredo madrid, pt to go to the surgery approx 1300.
[2023-05-01 09:11] LABS: Ferritin 12 ng/mL (10-122)
--- NOTE | 2023-05-01 10:44 | HO.PM.IMCN ---
History of Present Illness Data of Consult Service Date: 05/01/23 Requesting physician: Cherie Vargas Primary Care Provider: None Physician HPI Reason for consult: anemia Reason for consult: Microcytic Anemia 32-year-old female presenting to the emergency department for evaluation of right-sided flank pain x1 hour. she says that shehas hx of nephrolithasis ,this is her 4th episode of renal colic, her symptoms feel exactly like her kidney stone she has had in the past. She had to have ureter stented 3 years ago.Patient says that she had bilateral tubal ligation 1 year ago and since then she is having heavy menstrual periods for month, she denies any blood in the stool or melena or vomiting with blood. currently denies any active avginal bleeding, She said she never went to the doctor afterwards because she does not have any PCP. She is endorsing nausea and vomiting. No fevers or chills. Patient pain is somewhat better but still has significant pain, appearing very uncomfortable secondary to right-sided flank pain. Denies any new complaint of chest pain or shortness of breath or fever or chills Denies any weakness or numbness. wbc : 29.2 h/h 7.8/29.9 anemia workup shows iron deficiency . CT/CT abdomen pelvis wo IV con IMPRESSION: 1. There are tiny nonobstructing bilateral renal calculi. There is moderate to severe right hydronephroureter secondary to a 7 mm calculus at the ureterovesicular junction. 2. There is mild diverticulosis, without acute diverticulitis. 3. There is a small fat-containing umbilical hernia. UA: Pyuria ,hematuria ,LE +, bacteria trace ,urine culture pending Review of Systems Review of Systems: As above. [facility] Medical History Bacteremia Renal calculus Kidney infection in mother during first trimester of Family History Maternal Grandmother Diabetes mellitus Mother Lupus Surgical History Hx of section Social History Household Members: Significant Other and Children Both parents involved: No Caregiver staying overnight: No Housing: Apartment Are you a primary care program director to a significant other at home: No Do you presently have visiting nurse or other home services: No 75 years or older and lives alone: No Alcohol intake: never Patient Tobacco Use Status: Former Tobacco user Agree to transfusion: Yes service: No Current occupational status: employed Current occupation: chirag Current occupational exposures/hazards: No Cognitive needs: No Hearing needs: No Vision needs: No Meds Allergies Allergy/AdvReac Type Severity Reaction Status Date / Time Penicillins Allergy Severe ANAPHYLAXIS Verified 11/02/21 08:49 Active Medications: Current Medications Acetaminophen (Acetaminophen 325 Mg Tablet) 650 mg PO Q4H PRN PRN Reason: Pain, Mild (Pain Scale 1-3) Hydrocodone Bitart/Acetaminophen (Hydrocodone Bit/Acetam 7.5/325 Tablet) 1 tab PO Q4H [facility] Last Admin: 05/01/23 07:56 Dose: Not Given Docusate Sodium (Docusate Sodium 100 Mg Capsule) 100 mg PO BID [facility] Last Admin: 05/01/23 07:55 Dose: 100 mg Hydromorphone HCl (Hydromorphone Hcl 1 Mg/Ml Syringe) 0.5 mg IVPUSH Q3H PRN; Protocol PRN Reason: Pain, Severe (Pain Scale 7-10) Last Admin: 05/01/23 07:56 Dose: 0.5 mg Lactated Ringer's (Lr) 1,000 mls @ 100 mls/hr IVCONT .Q10H [facility] Last Admin: 05/01/23 01:41 Dose: 100 mls/hr Ondansetron HCl (Ondansetron Hcl 4 Mg/2 Ml Vial) 4 mg IVPUSH Q6H PRN PRN Reason: Nausea and Vomiting Last Admin: 04/30/23 23:03 Dose: 4 mg Sodium Chloride (0.9 % Sodium Chloride Flush 3 Ml Syringe) 3 ml IVFLUSH QSHIFT [facility] Last Admin: 05/01/23 07:57 Dose: 3 ml Home Medications Medication Instructions Recorded Confirmed Last Taken Type No Known Home Meds 04/30/23 05/01/23 Unknown History Physical Exam Vital Signs and Narrative: Vital Signs: Last Vital Signs Temp 97.8 F 05/01/23 07:35 Pulse 72 05/01/23 08:25 Resp 14 05/01/23 07:35 BP 97/59 L 05/01/23 08:25 Pulse Ox 100 05/01/23 08:25 O2 Del Method Room Air 05/01/23 08:25 BMI result Body Mass Index 24.8 Appearance: Alert.? Oriented X3.?pain somewhat improving cvs: rrr, [id number] , no murmur res: clear to auscultation ,no rhonchii or wheezing abd: no rebound or guarding , bs present. :has right flank pain ext pulses present , no cyanosis . neuro: axo3 , nonfocal. Results Labs 05/01/23 13:33 05/01/23 07:18 Labs: Laboratory Results - last 24 hr 04/30/23 04/30/23 05/01/23 16:51 21:17 07:18 MCV 63.1 L MCH 16.4 L MCHC 26.0 L RDW 20.8 H Plt Count 331 D MPV 10.1 Immature Gran % (Auto) 0.3 Neut % (Auto) 64.3 Lymph % (Auto) 27.7 [place] % (Auto) 6.3 Eos % (Auto) 0.7 Baso % (Auto) 0.7 Lymph # (Auto) 2.1 [place] # (Auto) 0.5 Eos # (Auto) 0.1 Baso # (Auto) 0.1 Abs Immat Gran (auto) 0.02 Absolute Neuts (auto) 4.9 Absolute Nucleated RBC 0.000 Nucleated RBC % (auto) 0.0 Smear Tech's Comments VERIFIED Smear Path Review Anion Gap 12 12 Estim Creat Clear Calc 92.2 Estimated GFR > 60 Random Glucose 116 H Calcium 9.2 D Iron 6 L TIBC 307 % Saturation 2 L Unsat Iron Binding 301 Ferritin 12 Total Bilirubin 0.6 AST 27 ALT 25 Alkaline Phosphatase 66 Total Protein 8.1 H Albumin 4.6 Lipase 102 H Urine Color Yellow Urine Appearance Clear Urine pH 5.5 Ur Specific [place] 1.010 Urine Protein Negative Urine Glucose (UA) Negative Urine Ketones Negative Urine Blood Small (1+) H Urine Nitrite Negative Ur Leukocyte Esterase Small (1+) H Urine RBC >20 H Urine WBC 6-10 H Ur Squamous Epith Cells 3-5 Urine Bacteria Trace Hyaline Casts 0-2 Urine Test NEGATIVE Stool Occult Blood NEGATIVE 05/01/23 08:06 MCV 63.2 L MCH 16.5 L MCHC 26.1 L RDW 20.2 H Plt Count 249 MPV 10.4 Immature Gran % (Auto) 2.8 H Neut % (Auto) 92.6 H Lymph % (Auto) 2.0 L [place] % (Auto) 2.4 Eos % (Auto) 0.0 Baso % (Auto) 0.2 Lymph # (Auto) 0.6 L [place] # (Auto) 0.7 Eos # (Auto) 0.0 Baso # (Auto) 0.1 Abs Immat Gran (auto) 0.81 H Absolute Neuts (auto) 27.0 H Absolute Nucleated RBC 0.000 Nucleated RBC % (auto) 0.0 Smear Tech's Comments VERIFIED Smear Path Review Cancelled Anion Gap Estim Creat Clear Calc Estimated GFR Random Glucose Calcium Iron TIBC % Saturation Unsat Iron Binding Ferritin Total Bilirubin AST ALT Alkaline Phosphatase Total Protein Albumin Lipase Urine Color Urine Appearance Urine pH Ur Specific [place] Urine Protein Urine Glucose (UA) Urine Ketones Urine Blood Urine Nitrite Ur Leukocyte Esterase Urine RBC Urine WBC Ur Squamous Epith Cells Urine Bacteria Hyaline Casts Urine Test Stool Occult Blood Imaging Radiologist's Impressions: Impressions Abdomen/Pelvis CT 04/30/23 18:56 IMPRESSION: 1. There are tiny nonobstructing bilateral renal calculi. There is moderate to severe right hydronephroureter secondary to a 7 mm calculus at the ureterovesicular junction. 2. There is mild diverticulosis, without acute diverticulitis. 3. There is a small fat-containing umbilical hernia. Fleischner guidelines were followed. Assessment and Plan (1) Anemia: Status: Acute Plan 1. hx of nephrolithasis : There are tiny nonobstructing bilateral renal calculi. There is moderate to severe right hydronephroureter secondary to a 7 mm calculus at the ureterovesicular junction. renal function seems fine urine preganacy test(04/30/23 -negative) continue IV hydration, pain management Urology following 2. Possible UTI: Elevated white count Tachycardia secondary to pain ,not sepsis Started on IV ceftriaxone, urine culture pending. 3. Microcytic anemia possible sec to ch blood loss /long mensturations post tubal ligation: Iron studies shows microcytic anemia consistent with iron deficiency. Patient had tubal ligation 1 year ago since then she has heavy bleeding, not seeing any doctor outpatient. H&H so far stable around 7.8 / 29.9 -given disproportionate drop of hemoglobin and hematocrit is around 30 it seems like probably has delusional component to it. currently h/h above transfusion threshold, moniter h/h.( may need transfuse if h/h 7 or below) Will check H&H after holding fluids for 1 hour, type and cross d/w Medical Reception Specialist - recomended oupatient followup. Will start patient on p.o. iron and vitamin-C Above management discussed with the patient and the primary team in detail length, time spent 70 minute. Will continue to follow along with you. Thanks for letting us participate in patient care.
[2023-05-01] MEDS: Ferrous Sulfate 324 MG TABLET.DR PO ×2 (11:49→16:27)
[2023-05-01] MEDS: Ascorbic Acid 500 MG TABLET PO (11:49)
[2023-05-01 11:52] LABS: Folate 8.4 ng/mL (> or = 4.0); Vitamin B12 598 pg/mL (200-900)
[2023-05-01] MEDS: Lactated Ringers 1,000 ML 80 ML IVCONT ×2 (13:08→16:33)
--- NOTE | 2023-05-01 13:39 | HO.ANESPROP2 ---
HPI - Anesthesia Eval Consult details Narrative: for cysto, retro, laser PMFSH Active Problems Active Problems: All Active Problems (Updated 05/01/23 @ 07:15 by Cherie Vargas MD) Hydronephrosis (Acute) Ureteral calculus, right (Acute) Anemia (Acute) Large for dates fetus affecting in third trimester, antepartum (Acute) Encounter for supervision of normal in third trimester (Acute) Supervision of normal in second trimester (Acute) Excessive weight gain affecting (Acute) Bacteremia (Acute) Cervical cancer screening (Acute) History of section, low transverse (Acute) Encounter for screening for malformation using ultrasound (Acute) Renal calculus (Acute) Early stage of (Acute) Renal colic (Acute) Past Medical History Medical History Bacteremia Renal calculus Kidney infection in mother during first trimester of Patient : No Family History Family History Maternal Grandmother Diabetes mellitus Mother Lupus Family history of problems with anesthesia: No Surgical History Surgical History Hx of section History of Problems with Anesthesia: No Social History Social History Household Members: Significant Other and Children Both parents involved: No Caregiver staying overnight: No Housing: Apartment Are you a primary technical healthcare consultant to a significant other at home: No Do you presently have visiting nurse or other home services: No 75 years or older and lives alone: No Alcohol intake: never Patient Tobacco Use Status: Former Tobacco user Agree to transfusion: Yes service: No Current occupational status: employed Current occupation: [employer] Current occupational exposures/hazards: No Cognitive needs: No Hearing needs: No Vision needs: No Meds Allergies Allergy/AdvReac Type Severity Reaction Status Date / Time Penicillins Allergy Severe ANAPHYLAXIS Verified 11/02/21 08:49 Active Medications: Current Medications Acetaminophen (Acetaminophen 325 Mg Tablet) 650 mg PO Q4H PRN PRN Reason: Pain, Mild (Pain Scale 1-3) Hydrocodone Bitart/Acetaminophen (Hydrocodone Bit/Acetam 7.5/325 Tablet) 1 tab PO Q4H [facility] Last Admin: 05/01/23 11:48 Dose: 1 tab Ascorbic Acid (Ascorbic Acid 500 Mg Tablet) 500 mg PO DAILY [facility] Last Admin: 05/01/23 11:49 Dose: 500 mg Docusate Sodium (Docusate Sodium 100 Mg Capsule) 100 mg PO BID [facility] Last Admin: 05/01/23 07:55 Dose: 100 mg Ferrous Sulfate (Ferrous Sulfate 324 Mg Tablet.) 324 mg PO BIDWM [facility] Last Admin: 05/01/23 11:49 Dose: 324 mg Hydromorphone HCl (Hydromorphone Hcl 1 Mg/Ml Syringe) 0.5 mg IVPUSH Q3H PRN; Protocol PRN Reason: Pain, Severe (Pain Scale 7-10) Last Admin: 05/01/23 07:56 Dose: 0.5 mg Lactated Ringer's (Lr) 1,000 mls @ 100 mls/hr IVCONT .Q10H [facility] Last Admin: 05/01/23 13:08 Dose: 80 mls/hr Gentamicin Sulfate 160 mg/ (Sodium Chloride) 104 mls @ 100 mls/hr IV ONCE ONE Stop: 05/01/23 14:35 Ondansetron HCl (Ondansetron Hcl 4 Mg/2 Ml Vial) 4 mg IVPUSH Q6H PRN PRN Reason: Nausea and Vomiting Last Admin: 04/30/23 23:03 Dose: 4 mg Sodium Chloride (0.9 % Sodium Chloride Flush 3 Ml Syringe) 3 ml IVFLUSH QSHIFT [facility] Last Admin: 05/01/23 07:57 Dose: 3 ml Home Medications Medication Instructions Recorded Confirmed Last Taken Type No Known Home Meds 04/30/23 05/01/23 Unknown History Exam Exam Date and Time: May 01, 2023 1339 Height,Weight and Vital Signs: Height 5 ft 3 in Weight 63.503 kg Last Vital Signs Temp 97.7 F 05/01/23 13:08 Pulse 92 05/01/23 13:08 Resp 18 05/01/23 13:08 BP 114/69 05/01/23 13:08 Pulse Ox 99 05/01/23 13:08 O2 Del Method Room Air 05/01/23 13:08 Pertinent Lab Results Pertinent Lab Results: oLaboratory Tests 04/30/23 04/30/23 05/01/23 16:51 21:17 07:18 WBC 7.6 RBC 5.37 D Hgb 8.8 L Hct 33.9 L MCV 63.1 L MCH 16.4 L MCHC 26.0 L RDW 20.8 H Plt Count 331 D MPV 10.1 Immature Gran % (Auto) 0.3 Neut % (Auto) 64.3 Lymph % (Auto) 27.7 [place] % (Auto) 6.3 Eos % (Auto) 0.7 Baso % (Auto) 0.7 Lymph # (Auto) 2.1 [place] # (Auto) 0.5 Eos # (Auto) 0.1 Baso # (Auto) 0.1 Abs Immat Gran (auto) 0.02 Absolute Neuts (auto) 4.9 Absolute Nucleated RBC 0.000 Nucleated RBC % (auto) 0.0 Smear Tech's Comments VERIFIED Smear Path Review SEE NOTE Sodium 140 139 Potassium 3.8 4.4 Chloride 105 107 Carbon Dioxide 27 24 Anion Gap 12 12 BUN 8 L Creatinine 0.80 Estim Creat Clear Calc 92.2 Estimated GFR > 60 Random Glucose 116 H Calcium 9.2 D Iron 6 L TIBC 307 % Saturation 2 L Unsat Iron Binding 301 Ferritin 12 Total Bilirubin 0.6 AST 27 ALT 25 Alkaline Phosphatase 66 Total Protein 8.1 H Albumin 4.6 Lipase 102 H Vitamin B12 Folate Urine Color Yellow Urine Appearance Clear Urine pH 5.5 Ur Specific [place] 1.010 Urine Protein Negative Urine Glucose (UA) Negative Urine Ketones Negative Urine Blood Small (1+) H Urine Nitrite Negative Ur Leukocyte Esterase Small (1+) H Urine RBC >20 H Urine WBC 6-10 H Ur Squamous Epith Cells 3-5 Urine Bacteria Trace Hyaline Casts 0-2 Urine Test NEGATIVE Stool Occult Blood NEGATIVE 05/01/23 05/01/23 08:06 10:32 WBC 29.2 H RBC 4.73 Hgb 7.8 L Hct 29.9 L MCV 63.2 L MCH 16.5 L MCHC 26.1 L RDW 20.2 H Plt Count 249 MPV 10.4 Immature Gran % (Auto) 2.8 H Neut % (Auto) 92.6 H Lymph % (Auto) 2.0 L [place] % (Auto) 2.4 Eos % (Auto) 0.0 Baso % (Auto) 0.2 Lymph # (Auto) 0.6 L [place] # (Auto) 0.7 Eos # (Auto) 0.0 Baso # (Auto) 0.1 Abs Immat Gran (auto) 0.81 H Absolute Neuts (auto) 27.0 H Absolute Nucleated RBC 0.000 Nucleated RBC % (auto) 0.0 Smear Tech's Comments VERIFIED Smear Path Review Cancelled Sodium Potassium Chloride Carbon Dioxide Anion Gap BUN Creatinine Estim Creat Clear Calc Estimated GFR Random Glucose Calcium Iron TIBC % Saturation Unsat Iron Binding Ferritin Total Bilirubin AST ALT Alkaline Phosphatase Total Protein Albumin Lipase Vitamin B12 598 Folate 8.4 Urine Color Urine Appearance Urine pH Ur Specific [place] Urine Protein Urine Glucose (UA) Urine Ketones Urine Blood Urine Nitrite Ur Leukocyte Esterase Urine RBC Urine WBC Ur Squamous Epith Cells Urine Bacteria Hyaline Casts Urine Test Stool Occult Blood Airway Mallampati Class: II TM Dist: <=3cm Neck ROM: Full Loose/Missing/Broken Teeth: No Heart: ok Lungs: ok Assessment and Plan Final Anesthetic Review Family History of Problems with Anesthesia: No History of Problems with Anesthesia: No NPO: Yes ASA Class: II and Emergency Final Preanesthetic Review: No Changes in Pt Med Stat, Meds/Allgs Chart Reviewed, Consent Obtained/Reviewed and Anes Risks/Benef Reviewed Patient Risk: Low Procedure Risk: Low Anesthetic Plan Anesthetic Plan: GA and Agree w/ Assess. and Plan Disposition: Standard PACU
[2023-05-01 13:45] LABS: Hematocrit 29.7 % (37.0-47.0); Hemoglobin 7.8 g/dl (12.0-16.0)
--- NOTE | 2023-05-01 13:45 | MHC.SHP ---
Pre-Procedural Eval Section A Date of Service: 05/01/23 The History & Physical has been completed within 30 days and I have reviewed it.: Yes Section B Chief Complaint: ureteral stone, hydronephrosis Allergies: Allergies Allergy/AdvReac Type Severity Reaction Status Date / Time Penicillins Allergy Severe ANAPHYLAXIS Verified 11/02/21 08:49 Plan Diagnosis/Plan: Unchanged I have reviewed the history and physical and performed a pertinent physical examination on my patient. No changes have occurred unless specified. Plan for Cystoscopy, right ureteral stent, possible ureteroscopy, possible laser lithotripsy. Risks discussed included but not limited to, possible need to repeat procedure if stone is not completely fragmented, Irritative voiding symptoms, bladder spasms, urgency, blood in urine. Time Spent With Patient Time: Total time managing care of this patient today ____ minutes.
--- NOTE | 2023-05-01 14:38 | W.PM.OPN ---
Operative Note Operative Note Date of Service: 05/01/23 Narrative: PreOperative Diagnosis:?? UTI, right ureteral stone, hydronephrosis Post Operative Diagnosis:?? ?UTI, right ureteral stone, hydronephrosis, cystitis Procedure: - cystoscopy, right retrograde, - right stent placement--6 Vietnamese by 24 cm Surgeon:?Dr Cherie Vargas Anesthesia:? General Procedure: After informed consent was verified the patient was brought to the operating placed on the OR table in supine position.? General Anesthesia was administered per protocol.? The patient was placed in lithotomy position, prepped and draped in the usual sterile fashion.? Safety pause time-out and side of surgery confirmed.? Antibiotics confirmed. 2% lidocaine jelly was passed transurethrally into the bladder. A 22 Vietnamese cystoscope was inserted transurethrally, The bladder was visualized.? 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 Both ureteric orifices were in normal position. The? right ureteric orifice was cannulated? and a retrograde examination was performed, there was dilatation of the ureter beyond the distal stone. A hydrophilic guidewire was placed up to the level of the renal pelvis under fluoroscopy. The open-ended ureteral catheter was passed to the renal pelvis and urine was sent for culture. Small amount of contrast was injected to delineate the renal pelvis and calyces. The guidewire was replaced and a? 6 Vietnamese by 24 cm length stent was placed into the ureter and renal pelvis under a combination of fluoroscopy and direct visualization. The bladder was emptied.? The rigid cystoscope was removed. ? 2% lidocaine jelly was passed transurethrally into the bladder. The patient tolerated the procedure well and was brought to the recovery room in stable condition. Complications: None Drains: Ureteral stent as dictated above
[2023-05-01] MEDS: Gentamicin Sulfate 160 MG in 0.9 % Sodium Chloride 100 ML 100 MG IV (14:40)
[2023-05-01] MEDS: Phenazopyridine HCL 100 MG TABLET PO (16:28)
[2023-05-01] MEDS: oxyCODONE HCl Immed Release 5 MG TABLET PO (18:35)
[2023-05-01] MEDS: Acetaminophen 325 MG TABLET 650 MG PO (18:35)
[2023-05-02] VITALS (10 sets, daily range): BP systolic 108–119; BP diastolic 55–72; PULSE 81–96; RESP 16–20; TEMP 36.4–38.1; O2SAT 96–98
[2023-05-02] MEDS: HYDROmorphone HCl 1 MG/ML SYRINGE 0.5 MG IVPUSH (04:58)
[2023-05-02] MEDS: HYDROcodone Bit/Acetam 7.5/325 TABLET 1 TAB PO ×3 (04:59→14:32)
[2023-05-02] MEDS: Lactated Ringers 1,000 ML 80 ML IVCONT (05:00)
[2023-05-02 06:20] LABS: Anion Gap 10 (12-20); Basophils Percent Auto 0.2 % (0-2); Blood Urea Nitrogen 7 mg/dL (9-16); Carbon Dioxide 25 mmol/L (22-29); Chloride 108 mmol/L (96-108); Creatinine Clr Calc Pharmacy 97.1; Eosinophils Percent Auto 0.1 % (0-4); Estimated Glomerular Filt Rate > 60; Hematocrit 29.7 % (37.0-47.0); Hemoglobin 7.7 g/dl (12.0-16.0); Imm Gran Abs Auto 0.13 X10*3/uL (0.00-0.03); Imm Gran Pct Auto 0.7 % (0.0-0.4); Lymphocytes Absolute Auto 0.6 X10*3/uL (1.2-4.9); Lymphocytes Percent Auto 3.2 % (20-40); MANUAL DIFF FLAG SCAN; Mean Corpuscular HGB Conc 25.9 g/dl (31.0-35.0); Mean Corpuscular Hemoglobin 16.5 pg (27.0-33.0); Monocytes Absolute Auto 0.6 X10*3/uL (0.1-1.2); Monocytes Percent Auto 3.2 % (2-11); Neutrophils Absolute Auto 17.9 x10*3/uL (2.0-8.3); Neutrophils Percent Auto 92.6 % (45-73); Platelet Count 234 X10*3/uL (160-400); Potassium 3.9 mmol/L (3.3-5.1); Red Blood Count 4.67 X10*6/uL (4.20-5.50); Red Cell Distribution Width 20.6 % (11.0-16.0); SCAN SMEAR FLAG 1; Sodium 139 mmol/L (135-145); White Blood Count 19.3 X10*3/uL (4.8-10.8)
[2023-05-02 06:25] LABS: Mean Corpuscular Volume 63.6 fL (80.0-98.0)
[2023-05-02 07:15] LABS: SLIDE REVIEW VERIFIED
--- NOTE | 2023-05-02 07:28 | HO.PM.IMPN ---
Subjective Subjective Date of Service: 05/02/23 Interval History: a bit tired, no chest pain, no sob Physical Exam Vital Signs: Vital Signs: Last Vital Signs Temp 99.3 F 05/02/23 04:00 Pulse 96 05/02/23 04:00 Resp 16 05/02/23 04:00 BP 119/72 05/02/23 04:00 Pulse Ox 98 05/02/23 04:00 O2 Del Method Room Air 05/02/23 04:00 BMI result Body Mass Index 24.8 Const: General: cooperative, healthy appearing and no acute distress Orientation/consciousness: patient oriented x3 HEENT: Head: Yes normal to inspection, Yes normocephalic and Yes atraumatic Eyes: Conjunctivae: conjunctivae normal Neck: Neck: Yes normal visual inspection and Yes trachea midline Chest: Chest palpation & inspection: normal inspection of the chest Resp: Effort & Inspection: normal respiratory effort Cardio: Rate: regular rate GI: Inspection: Yes normal to inspection Palpation (GI): Soft to palpation : General: Yes CVA tenderness on the right Back/Spine/Pelvis: Back: CVA tenderness Skin: General skin exam: no rashes or lesions noted Neuro: General: patient oriented x3 Extrem: General: No edema Psych: Appearance: grossly normal Objective Data Active Medications Acetaminophen (Acetaminophen 325 Mg Tablet) 650 mg PO Q4H PRN PRN Reason: Pain, Mild (Pain Scale 1-3) Hydrocodone Bitart/Acetaminophen (Hydrocodone Bit/Acetam 7.5/325 Tablet) 1 tab PO Q4H [facility] Last Admin: 05/02/23 04:59 Dose: 1 tab Documented By: GABE Ascorbic Acid (Ascorbic Acid 500 Mg Tablet) 500 mg PO DAILY [facility] Last Admin: 05/01/23 11:49 Dose: 500 mg Documented By: CHAD Docusate Sodium (Docusate Sodium 100 Mg Capsule) 100 mg PO BID [facility] Last Admin: 05/01/23 21:46 Dose: 100 mg Documented By: PINEDA Ferrous Sulfate (Ferrous Sulfate 324 Mg Tablet.) 324 mg PO BIDWM [facility] Last Admin: 05/01/23 16:27 Dose: 324 mg Documented By: PINEDA Hydromorphone HCl (Hydromorphone Hcl 1 Mg/Ml Syringe) 0.5 mg IVPUSH Q3H PRN; Protocol PRN Reason: Pain, Severe (Pain Scale 7-10) Last Admin: 05/02/23 04:58 Dose: 0.5 mg Documented By: GABE Lactated Ringer's (Lr) 1,000 mls @ 100 mls/hr IVCONT .Q10H [facility] Last Admin: 05/02/23 05:00 Dose: 80 mls/hr Documented By: GABE Levofloxacin (Levaquin) 500 mg in 100 mls @ 100 mls/hr IV Q24H [facility] Ondansetron HCl (Ondansetron Hcl 4 Mg/2 Ml Vial) 4 mg IVPUSH Q6H PRN PRN Reason: Nausea and Vomiting Last Admin: 04/30/23 23:03 Dose: 4 mg Documented By: JANES Ondansetron HCl (Ondansetron Hcl 4 Mg/2 Ml Vial) 4 mg IVPUSH ONCE PRN PRN Reason: Nausea and Vomiting Oxybutynin Chloride (Oxybutynin Chloride Er 5 Mg Tab.Er.24) 5 mg PO BID [facility] Phenazopyridine HCl (Phenazopyridine Hcl 100 Mg Tablet) 100 mg PO TIDWM [facility] Stop: 05/03/23 12:01 Last Admin: 05/01/23 16:28 Dose: 100 mg Documented By: PINEDA Sodium Chloride (0.9 % Sodium Chloride Flush 3 Ml Syringe) 3 ml IVFLUSH QSHIFT [facility] Last Admin: 05/01/23 23:52 Dose: Not Given Documented By: GABE Non-Admin Reason: IV Running Labs 05/02/23 05:35 05/02/23 05:35 Labs: Laboratory Results - last 24 hr 04/30/23 05/01/23 05/01/23 16:51 07:18 08:06 MCV 63.2 L MCH 16.5 L MCHC 26.1 L RDW 20.2 H Plt Count 249 MPV 10.4 Immature Gran % (Auto) 2.8 H Neut % (Auto) 92.6 H Lymph % (Auto) 2.0 L [place] % (Auto) 2.4 Eos % (Auto) 0.0 Baso % (Auto) 0.2 Lymph # (Auto) 0.6 L [place] # (Auto) 0.7 Eos # (Auto) 0.0 Baso # (Auto) 0.1 Abs Immat Gran (auto) 0.81 H Absolute Neuts (auto) 27.0 H Absolute Nucleated RBC 0.000 Nucleated RBC % (auto) 0.0 Smear Tech's Comments VERIFIED Smear Path Review SEE NOTE Cancelled Anion Gap 12 Estim Creat Clear Calc Estimated GFR Iron 6 L TIBC 307 % Saturation 2 L Unsat Iron Binding 301 Ferritin 12 Vitamin B12 Folate Blood Type Antibody Screen 05/01/23 05/01/23 05/02/23 10:32 13:33 05:35 MCV 63.6 L MCH 16.5 L MCHC 25.9 L RDW 20.6 H Plt Count 234 MPV Not Reportable Immature Gran % (Auto) 0.7 H Neut % (Auto) 92.6 H Lymph % (Auto) 3.2 L [place] % (Auto) 3.2 Eos % (Auto) 0.1 Baso % (Auto) 0.2 Lymph # (Auto) 0.6 L [place] # (Auto) 0.6 Eos # (Auto) 0.0 Baso # (Auto) 0.0 Abs Immat Gran (auto) 0.13 H Absolute Neuts (auto) 17.9 H Absolute Nucleated RBC 0.000 Nucleated RBC % (auto) 0.0 Smear Tech's Comments VERIFIED Smear Path Review Anion Gap 10 L Estim Creat Clear Calc 97.1 Estimated GFR > 60 Iron TIBC % Saturation Unsat Iron Binding Ferritin Vitamin B12 598 Folate 8.4 Blood Type B Positive Antibody Screen NEGATIVE Microbiology Microbiology Results: Microbiology 04/30/23 Unknown Urine Culture - Preliminary Urine clean catch - Urine dumont top Gram negative dell Assessment and Plan (1) Anemia: Status: Acute Plan 32F [facility] admitted for nephrolithiasis, uti, medicine consulted for anemia chronic blood loss anemia due to heavy menstration would give iv iron while inpatient po on discharge hgb 7.7, not severely symptomatic, would hold off on transfusion for now follow up HORTICULTURE WORKER will sign off for now, please recall if needed Quality Stroke Does the patient have a stroke diagnosis?: No VTE Prior VTE?: No VTE Risk Level:: Surgical - low VTE Device Contraindication: N/A - Device Ordered VTE Drug Contraindication: Treatment Not Indicated
[2023-05-02] MEDS: Ferrous Sulfate 324 MG TABLET.DR PO ×2 (08:00→17:17)
[2023-05-02] MEDS: Docusate Sodium 100 MG CAPSULE PO ×2 (08:00→19:45)
[2023-05-02] MEDS: Ascorbic Acid 500 MG TABLET PO (08:00)
[2023-05-02] MEDS: levoFLOXacin/D5W 500 MG/100 ML PIGGYBACK 100 MG IV (08:01)
[2023-05-02] MEDS: oxyBUTYnin chloride ER 5 MG TAB.ER.24 PO ×2 (08:01→19:45)
[2023-05-02] MEDS: Iron Sucrose Complex 200 MG in 0.9 % Sodium Chloride 100 ML 440 MG IV (10:14)
[2023-05-02] MEDS: Acetaminophen 325 MG TABLET 650 MG PO ×2 (11:34→17:50)
[2023-05-02] MEDS: Lactated Ringers 1,000 ML 75 ML IVCONT (11:35)
--- NOTE | 2023-05-02 12:53 | PM.UROPN ---
Subjective Subjective Date of Service: 05/02/23 Patient reports: feels better and pain is less Interval history: S/p right ureteral stent, urine c/s --gram negative rods, WBC 26 -down to 19K today Cont IV Levaquin Physical Exam Vital Signs: Vital Signs: Last Vital Signs Temp 98.6 F 05/02/23 09:36 Pulse 83 05/02/23 07:39 Resp 16 05/02/23 07:39 BP 110/62 05/02/23 07:39 Pulse Ox 96 05/02/23 07:39 O2 Del Method Room Air 05/02/23 07:39 BMI result Body Mass Index 24.8 Const: General: cooperative, healthy appearing and no acute distress Orientation/consciousness: patient oriented x3 HEENT: Head: Yes normal to inspection, Yes normocephalic and Yes atraumatic Eyes: Conjunctivae: conjunctivae normal Neck: Neck: Yes normal visual inspection and Yes trachea midline Chest: Chest palpation & inspection: normal inspection of the chest Resp: Effort & Inspection: normal respiratory effort Cardio: Rate: regular rate GI: Inspection: Yes normal to inspection Palpation (GI): Soft to palpation Skin: General skin exam: no rashes or lesions noted Neuro: General: patient oriented x3 Extrem: General: No edema Psych: Appearance: grossly normal Urology Results Labs 05/02/23 05:35 05/02/23 05:35 Labs: Laboratory Results - last 24 hr 05/01/23 05/02/23 13:33 05:35 WBC 19.3 H RBC 4.67 Hgb 7.8 L 7.7 L Hct 29.7 L 29.7 L MCV 63.6 L MCH 16.5 L MCHC 25.9 L RDW 20.6 H Plt Count 234 MPV Not Reportable Immature Gran % (Auto) 0.7 H Neut % (Auto) 92.6 H Lymph % (Auto) 3.2 L [place] % (Auto) 3.2 Eos % (Auto) 0.1 Baso % (Auto) 0.2 Lymph # (Auto) 0.6 L [place] # (Auto) 0.6 Eos # (Auto) 0.0 Baso # (Auto) 0.0 Abs Immat Gran (auto) 0.13 H Absolute Neuts (auto) 17.9 H Absolute Nucleated RBC 0.000 Nucleated RBC % (auto) 0.0 Smear Tech's Comments VERIFIED Sodium 139 Potassium 3.9 Chloride 108 Carbon Dioxide 25 Anion Gap 10 L BUN 7 L Creatinine 0.76 Estim Creat Clear Calc 97.1 Estimated GFR > 60 Blood Type B Positive Antibody Screen NEGATIVE Progress Note: A&P Assessment and plan (1) Hydronephrosis: Status: Acute (2) Ureteral calculus, right: Status: Acute (3) Anemia: Status: Acute (4) UTI (urinary tract infection): Status: Inactive Plan IV Levaquin final susceptiblities on urine c/s pending out pt fu with Contact Clerk Cont IV fluid hydration Time Spent With Patient Time: Total time managing care of this patient today ____ minutes. Progress Note: Quality Stroke Does the patient have a stroke diagnosis?: No
[2023-05-02] MEDS: Phenazopyridine HCL 100 MG TABLET PO ×2 (13:32→17:17)
--- NOTE | 2023-05-02 15:47 | HO.POSTANES ---
Post Anesthesia Evaluation Post Anesthesia Evaluation Date of Service: 05/02/23 Vital Signs: Vital Signs Temp Pulse Resp BP Pulse Ox O2 Del Method 05/02/23 15:15 97.9 F 84 18 116/63 96 Room Air 05/02/23 13:32 98.2 F 05/02/23 12:12 100.6 F H 90 16 118/69 98 Room Air 05/02/23 09:50 99.1 F 05/02/23 09:36 98.6 F 05/02/23 07:39 97.6 F 83 16 110/62 96 Room Air 05/02/23 04:00 99.3 F 96 16 119/72 98 Room Air Anesthesia: General Mental Status: Awake Pain Control: Satisfactory Nausea/Vomiting: None Hydration: Adequate Anesthesia-Related Issues: No Anes. Related Issues
[2023-05-02] MEDS: Ibuprofen 400 MG TABLET PO (16:32)
--- NOTE | 2023-05-02 17:36 | PC.NURSE ---
Pt given Ibuprofen at 1632 for 10 headache.
--- NOTE | 2023-05-02 17:37 | PC.NURSE ---
Pt states Headache is improving but now is endorsing chills, shakes, and nausea. Pt refuses zofran at this time states it makes her vomit. CHANDU Clifton made aware, pt VS 98.2, 87HR, RR20, BP 111/57, 98% on room air. Tylenol was held earlier per MD Ruiz at 15:54 due to exceeding daily amounts. Lights dimmed and pt given cold pack for back of neck.
[2023-05-03 03:44] VITALS: BP 115/66; PULSE 63; RESP 16; TEMP 36.4; O2SAT 100
[2023-05-03] MEDS: Lactated Ringers 1,000 ML 75 ML IVCONT (06:26)
[2023-05-03] MEDS: Ascorbic Acid 500 MG TABLET PO (07:30)
[2023-05-03] MEDS: Phenazopyridine HCL 100 MG TABLET PO (07:30)
[2023-05-03] MEDS: oxyBUTYnin chloride ER 5 MG TAB.ER.24 PO (07:30)
[2023-05-03] MEDS: Ferrous Sulfate 324 MG TABLET.DR PO (07:31)
[2023-05-03] MEDS: Docusate Sodium 100 MG CAPSULE PO (07:31)
[2023-05-03] MEDS: levoFLOXacin/D5W 500 MG/100 ML PIGGYBACK 100 MG IV (07:31)
[2023-05-03 07:42] VITALS: BP 127/76; PULSE 79; RESP 18; TEMP 37; O2SAT 99
[2023-05-03] MEDS: Iron Sucrose Complex 200 MG in 0.9 % Sodium Chloride 100 ML 440 MG IV (09:05)
[2023-05-03 09:11] LABS: MANUAL DIFF FLAG NO
[2023-05-03 09:23] LABS: Basophils Percent Auto 0.2 % (0-2); Eosinophils Percent Auto 0.1 % (0-4); Hematocrit 28.4 % (37.0-47.0); Hemoglobin 7.4 g/dl (12.0-16.0); Imm Gran Pct Auto 0.8 % (0.0-0.4); Lymphocytes Absolute Auto 1.1 X10*3/uL (1.2-4.9); Lymphocytes Percent Auto 9.1 % (20-40); Mean Corpuscular HGB Conc 26.1 g/dl (31.0-35.0); Mean Corpuscular Hemoglobin 16.2 pg (27.0-33.0); Monocytes Absolute Auto 0.6 X10*3/uL (0.1-1.2); Monocytes Percent Auto 4.9 % (2-11); Neutrophils Absolute Auto 10.1 x10*3/uL (2.0-8.3); Neutrophils Percent Auto 84.9 % (45-73); Platelet Count 243 X10*3/uL (160-400); Red Blood Count 4.56 X10*6/uL (4.20-5.50); Red Cell Distribution Width 20.6 % (11.0-16.0); White Blood Count 11.9 X10*3/uL (4.8-10.8)
[2023-05-03 09:24] LABS: Mean Corpuscular Volume 62.3 fL (80.0-98.0)
--- NOTE | 2023-05-03 10:44 | MHC.CM.PN ---
PT WILL DC HOME TODAY WITH NO SERVICES PT TO ARRANGE TRANSPORTATION
--- NOTE | 2023-06-03 07:55 | P.DS_ITS ---
DS: Providers Provider Date of Service: 05/03/23 Date of admission: 04/30/23 22:19 Date of discharge: 05/03/23 Primary care physician: Abdirashid Physician Admitting clinician: Cherie Vargas Attending physician on admission: Cherie Vargas Consults: 05/01/23 07:23 Consult to Medicine Routine Consulting Provider: Zenon Ruiz Reason for consultation: anemia Has provider been notified: Yes Attending physician on discharge: Cherie Vargas Discharging clinician: Cherie Vargas DS: Diagnosis Discharge Diagnosis (1) Hydronephrosis: Status: Resolved (2) Ureteral calculus, right: Status: Acute (3) Anemia: Status: Acute (4) UTI (urinary tract infection): Status: Inactive DS: Summary Hospital Course Hospital Course: Ana Biggs is a 32 year old female is a 32-year-old female presenting to the emergency department for evaluation of right-sided flank pain. Patient has a history of kidney stones and states she had to have ureter stented 3 years ago. She had nausea, vomiting, fever. Hb low on blood work. Cystoscopy stent insertion during hospitalization, Consultation by Hospitalist service for anemia. FU with [facility] as out patient planned. Time spent discussing smoking cessation with patient: more than 10 minutes Status at Discharge Cognitive/behavioral status at discharge: Normal Functional status at discharge: independent ambulation Overall status at discharge: patient is back to baseline Time Attestation Discharge coordination time: Greater than 30 minutes Quality: Safe Use of Opioids Does Pt have an Active Cancer Diagnosis on the Problem List?: No Quality: Stroke Does the patient have a stroke diagnosis?: No Physical Exam Vital Signs: Vital Signs: Last Vital Signs Temp 98.6 F 05/03/23 07:42 Pulse 79 05/03/23 07:42 Resp 18 05/03/23 07:42 BP 127/76 05/03/23 07:42 Pulse Ox 99 05/03/23 07:42 O2 Del Method Room Air 05/03/23 07:42 BMI result Body Mass Index 24.8 DS: Data Data Completed and Pending Completed studies during hospitalization [Text1]: Procedures Dilation of Right Ureter with Intraluminal Device, Via Natural or Artificial Opening Endoscopic (04/30/23) Fluoroscopy of Right Kidney, Ureter and Bladder (04/30/23) Discharge Plan Discharge Anticipated Discharge Date/Time: 05/03/23 13:09 Patient Disposition: Home, Self-Care Discharge Diagnosis: UTI, Ureteral stone with hydronephrosis, s/p ureteral stent Referrals: Physician,None [Primary Care Provider] - 1 Week Discharge Medications: New oxybutynin chloride 5 mg tablet extended release 24hr 5 mg PO BID Qty: 40 0RF No Action sulfamethoxazole-trimethoprim [Bactrim DS] 800-160 mg tablet See Rx Instructions .ROUTE .COMPLEX Qty: 40 0RF Rx Instructions: 1 tab orally b.i.d. for 3 days then continue 1 tablet daily for 30 days ferrous fumarate 325 mg (106 mg iron) tablet 325 mg PO DAILY Discharge Orders: Discharge Order (Routine); Ordered 05/03/23 Ordered By: Cherie Vargas Diet: Advance to usual diet Activity on Discharge: As tolerated Stand Alone Forms: Patient Portal Discharge page Activity Restrictions/Additional Instructions: Your blood your blood count was low, please follow-up with your primary care physician regarding this. Care Plan Goals: daily iron Health Concerns: Drink 36-48 ounces water daily, daily iron Plan of Treatment: [facility] outpatient FU Urology outpatient FU for management of ureteral stone, Office to schedule procedure for 05/14/23. Assessment: Stable Discharge Date/Time: 05/03/23 11:23
--- NOTE | 2023-08-05 17:10 | P.DS_ITS ---
DS: Providers Provider Date of Service: 05/03/23 Date of admission: 04/30/23 22:19 Primary care physician: None Physician Consults: 05/01/23 07:23 Consult to Medicine Routine Consulting Provider: Zenon Ruiz Reason for consultation: anemia Has provider been notified: Yes DS: Diagnosis Discharge Diagnosis (1) Hydronephrosis: Status: Resolved (2) Ureteral calculus, right: Status: Acute (3) Anemia: Status: Acute (4) UTI (urinary tract infection): Status: Inactive DS: Summary Hospital Course Hospital Course: Ana Biggs is a 32 year old female is a 32-year-old female presenting to the emergency department for evaluation of right-sided flank pain. Patient has a history of kidney stones and states she had to have ureter stented 3 years ago. She had nausea, vomiting, fever. Hb low on blood work. Cystoscopy stent insertion during hospitalization, Consultation by Hospitalist service for anemia. FU with [facility] as out patient planned. Time Attestation Discharge coordination time: Greater than 30 minutes Quality: Safe Use of Opioids Does Pt have an Active Cancer Diagnosis on the Problem List?: No Quality: Stroke Does the patient have a stroke diagnosis?: No Physical Exam Vital Signs: Vital Signs: Last Vital Signs Temp 98.6 F 05/03/23 07:42 Pulse 79 05/03/23 07:42 Resp 18 05/03/23 07:42 BP 127/76 05/03/23 07:42 Pulse Ox 99 05/03/23 07:42 O2 Del Method Room Air 05/03/23 07:42 BMI result Body Mass Index 24.8 DS: Data Data Completed and Pending Completed studies during hospitalization [Text1]: Procedures Dilation of Right Ureter with Intraluminal Device, Via Natural or Artificial Opening Endoscopic (04/30/23) Fluoroscopy of Right Kidney, Ureter and Bladder (04/30/23) Discharge Plan Discharge Anticipated Discharge Date/Time: 05/03/23 13:09 Patient Disposition: Home, Self-Care Discharge Diagnosis: UTI, Ureteral stone with hydronephrosis, s/p ureteral stent Referrals: Physician,None [Primary Care Provider] - 1 Week Discharge Medications: New oxybutynin chloride 5 mg tablet extended release 24hr 5 mg PO BID Qty: 40 0RF No Action sulfamethoxazole-trimethoprim [Bactrim DS] 800-160 mg tablet See Rx Instructions .ROUTE .COMPLEX Qty: 40 0RF Rx Instructions: 1 tab orally b.i.d. for 3 days then continue 1 tablet daily for 30 days ferrous fumarate 325 mg (106 mg iron) tablet 325 mg PO DAILY progesterone micronized [Prometrium] 200 mg capsule 200 mg PO BEDTIME 10 Days Qty: 30 0RF Rx Instructions: Take the pill 1 tablet a day cyclically every month from day 15-24 day 1 being the 1st day of next menstrual cycle Discharge Orders: Discharge Order (Routine); Ordered 05/03/23 Ordered By: Cherie Vargas Diet: Advance to usual diet Activity on Discharge: As tolerated Stand Alone Forms: Patient Portal Discharge page Activity Restrictions/Additional Instructions: Your blood your blood count was low, please follow-up with your primary care physician regarding this. Care Plan Goals: daily iron Health Concerns: Drink 36-48 ounces water daily, daily iron Plan of Treatment: Systems Support Specialist outpatient FU Urology outpatient FU for management of ureteral stone, Office to schedule procedure for 05/14/23. Assessment: Stable Discharge Date/Time: 05/03/23 11:23
== END 2023-05-03 11:23 | disposition home or self-care (01) | DRG 463 ==
LOC: HO.ED 19:48 → HO.EDOVER 22:32 → HO.S3 05-01 15:04
PROVIDERS: Internal Medicine; Nurse Practitioner Family; Physician Assistant Medical; Admitting Provider Urology; Emergency Provider Emergency Medicine; Visit Provider Urology
PROC: 0T768DZ Dilation of Right Ureter with Intraluminal Device, Via Natural or Artificial Opening Endoscopic (ICD-10-PCS; principal; 2023-05-01 14:00)
DX: N13.6 Pyonephrosis (principal); D50.0 Iron deficiency anemia secondary to blood loss (chronic); N92.0 Excessive and frequent menstruation with regular cycle; Z87.891 Personal history of nicotine dependence; Z79.899 Other long term (current) drug therapy
CPT/HCPCS: 36415; 74176; 80051; 80053; 81001; 81003; 81025; 82272; 82565; 82607; 82728; 82746; 83540; 83690; 84520; 85014; 85018; 85025; 86850; 86900; 86901; 87086; 87088; 87186; 99285; C1769; C2617; J1170; J1580; J1756; J1885; J1956; J2405; J2550; J3010; J7120; Q9967

== ENCOUNTER → 2023-04-30 22:19 | Outpatient (BNV) | payer OTHER, SELFPAY | PROVIDERS: Admitting Provider Urology; Emergency Provider Emergency Medicine; Visit Provider Urology | DX: N13.30 Unspecified hydronephrosis (principal); N20.1 Calculus of ureter; D64.9 Anemia, unspecified; N39.0 Urinary tract infection, site not specified | CPT/HCPCS: 52332; 74420; 99222; 99232; 99239 ==

== ENCOUNTER → 2023-04-30 22:19 | Outpatient (BNV) | payer OTHER, SELFPAY | PROVIDERS: Admitting Provider Urology; Emergency Provider Emergency Medicine; Visit Provider Internal Medicine | DX: D64.9 Anemia, unspecified (principal) | CPT/HCPCS: 99222; 99232 ==

== ENCOUNTER 2023-05-07 12:15 | Outpatient (AMB) | payer OTHER, SELFPAY ==
--- NOTE | 2023-05-07 12:17 | MHC.OFFVIS ---
Intake Vital Signs 05/07/23 12:23 Height 5 ft Weight 146 lb BMI 28.5 BP 108/66 Intake Visit Reasons: Vaginal bleeding Guillotine Operator Required: No Information Interpreted: non-clinical & clinical Mathematical Statistician: Mathematical Statistician Present (Brianna PABLO) Accompanied by: Self / Same As Patient Allergies Penicillins Allergy (Severe, Verified 05/07/23 12:24) ANAPHYLAXIS HPI HPI Comments History of Present Illness Details The patient is presenting c/o irregular bleeding associated with passage of blood clots and abdominal cramping. it started few months ago and is getting worse no other associated symptoms. Last Pap smear was done in 09/12 was negative [facility] Medical History Bacteremia Renal calculus Kidney infection in mother during first trimester of Surgical History Hx of section Family History Maternal Grandmother Diabetes mellitus Mother Lupus Social History Household Members: Family Both parents involved: No Caregiver staying overnight: No Housing: Apartment Are you a primary home child care provider to a significant other at home: No Do you presently have visiting nurse or other home services: No 75 years or older and lives alone: No Alcohol intake: never Patient Tobacco Use Status: Former Tobacco user Agree to transfusion: Yes service: No Current occupational status: employed Current occupation: [employer] Current occupational exposures/hazards: No Cognitive needs: No Hearing needs: No Vision needs: No Female Reproductive History Menstrual Age of Menarche: 13 Review of Systems Const All systems reviewed & are unremarkable except as noted in HPI and below Card Reports as per HPI Resp Reports as per HPI GI Reports as per HPI and Reports no additional complaints Reports as per HPI Physical Exam Vital Signs: Last Vital Signs BP 108/66 05/07/23 12:23 BMI result Body Mass Index 28.5 Const General: cooperative, healthy appearing and comfortable Chest Chest palpation & inspection: normal inspection of the chest and normal palpation of entire chest wall Breast/axilla inspection: normal inspection of the breasts and normal inspection of the axillae Breast/axilla palpation: normal palpation of the breasts, normal palpation of the axillae and no axillary lymphadenopathy Resp Effort & Inspection: normal respiratory effort Auscultation: clear to auscultation bilaterally Percussion: percussion normal Cardio Palpation: normal PMI Rate: regular rate Rhythm: regular rhythm Heart sounds: no murmurs and no rubs Peripheral pulses: Peripheral pulses 2+ throughout GI Inspection: Yes normal to inspection Palpation (GI): Soft to palpation, nontender, no guarding, not rigid and No hepatosplenomegaly present Percussion: Yes normal to percussion Auscultation: normal bowel sounds Rectal Exam - Female: deferred General: Yes bladder normal to palpation External Female Exam: No lesion Speculum Exam - Vagina: normal appearance of the vagina, normal palpation, normal vaginal discharge and not erythematous Speculum Exam - Cervix: normal appearance of the cervix and normal palpation Bimanual exam- vagina & uterus: normal bimanual exam, normal palpation, uterine size normal, bladder normal to palpation, consistency normal and normal palpation Bimanual Exam- Adnexa, other: normal adnexae, no masses and no tenderness Results AMB Test Urine AMB Test Urine Negative Last Edit by Brianna Maxwell CMA on 05/07/23 12:30 Results Reviewed Results Reviewed: Laboratory Last Values Tst Clinic Negative 05/07/23 12:30 Assessment & Plan Assessment & Plan (1) Abnormal uterine bleeding (AUB): Code(s): N93.9 - Abnormal uterine and vaginal bleeding, unspecified Plan: UPT done in the office was negative. Pap smear indicated this year, GC and chlamydia taken CBC, prolactin, TSH, HCG, and pelvic ultrasound ordered. Discussed with the patient the different causes of abnormal bleeding including thyroid disorders, uterine and ovarian pathology and other potential causes. Discussed with the patient the work up including CBC (to r/o anemia), TSH, prolactin, pelvic Ultrasound. All questions answered and the patient verbalized understanding. Instructed the patient to schedule a follow-up appointment in 2 weeks. Orders: Orders CT NG by PCR Today N93.9 - Abnormal uterine and vaginal bleeding, unspecified Complete Blood Count no Diff Today N93.9 - Abnormal uterine and vaginal bleeding, unspecified AMB HCG Urine Test Today Z32.02 - Encounter for test, result negative US pelvic and transvaginal Today N93.9 - Abnormal uterine and vaginal bleeding, unspecified TSH reflex Free T4 Today N93.9 - Abnormal uterine and vaginal bleeding, unspecified Prolactin Today N93.9 - Abnormal uterine and vaginal bleeding, unspecified HCG Quantitative Today N93.9 - Abnormal uterine and vaginal bleeding, unspecified Coding Level of Care Code Est Pt Level 3 (97496) Diagnoses Abnormal uterine bleeding (AUB) N93.9
[2023-05-07 12:23] VITALS: BP 108/66; BMI 28.5
== END 2023-05-07 12:57 | disposition home or self-care (01) ==
PROVIDERS: Visit Provider Obstetrics & Gynecology
DX: N93.9 Abnormal uterine and vaginal bleeding, unspecified (principal); Z32.02 Encounter for pregnancy test, result negative
CPT/HCPCS: 99213

== ENCOUNTER 2023-05-07 12:15 | Outpatient (REF) | payer OTHER, SELFPAY | END 2023-05-07 12:16 | disposition home or self-care (01) | LOC: HO.LNP 12:15 | PROVIDERS: Visit Provider Obstetrics & Gynecology | DX: N93.9 Abnormal uterine and vaginal bleeding, unspecified (principal) | CPT/HCPCS: 81025; 99212 ==

== ENCOUNTER 2023-05-07 12:54 | Outpatient (REF) | payer OTHER, SELFPAY ==
[2023-05-07 13:45] LABS: Hematocrit 34.7 % (37.0-47.0); Hemoglobin 9.1 g/dl (12.0-16.0); Mean Corpuscular HGB Conc 26.2 g/dl (31.0-35.0); Mean Corpuscular Hemoglobin 16.9 pg (27.0-33.0); NRBC Pct Auto 0.8 /100WBC (0.0-0.2); Platelet Count 365 X10*3/uL (160-400); White Blood Count 7.4 X10*3/uL (4.8-10.8)
[2023-05-07 13:46] LABS: Mean Corpuscular Volume 64.3 fL (80.0-98.0)
[2023-05-07 14:51] LABS: HCG Quantitative < 2 mIU/mL
[2023-05-07 16:08] LABS: CT PCR NOT DETECTED (Not Detect.); NG PCR NOT DETECTED (Not Detect.)
[2023-05-09 05:59] LABS: Prolactin 6.4 ng/mL
== END 2023-05-07 12:55 | disposition home or self-care (01) ==
LOC: HO.LAB 12:54
PROVIDERS: Visit Provider Obstetrics & Gynecology
DX: N93.9 Abnormal uterine and vaginal bleeding, unspecified (principal)
CPT/HCPCS: 0353U; 84146; 84443; 84702; 85027

== ENCOUNTER 2023-05-14 07:06 | Day surgery (SDC) | payer OTHER, SELFPAY ==
[2023-05-09 13:58] VITALS: BMI 28.5
--- NOTE | ~2023-05-14 | FL_ITS ---
EXAMINATION: XR FLUOROSCOPY WITH IMAGES CLINICAL INFORMATION: Stent removal COMPARISON: 05/01/2023 TECHNIQUE: Fluoroscopy provided during stent removal. Fluoroscopy Time: 7.3 seconds. Cumulative Dose: 1.85 mGy. Images: 2. FINDINGS: First image demonstrates wire in the anticipated region of the right renal pelvis. Second image demonstrates unremarkable pelvis. FL/FL guidance in OR IMPRESSION: Intraoperative fluoroscopy during stent removal.
[2023-05-14 07:10] VITALS: BMI 28.7
[2023-05-14 07:34] VITALS: BP 109/55; PULSE 76; RESP 16; TEMP 36.1; O2SAT 100
--- NOTE | 2023-05-14 08:36 | P.CONAN_ITS ---
[facility] Active Problems All Active Problems Abnormal uterine bleeding (AUB) (Acute) Ureteral calculus, right (Acute) Anemia (Acute) Large for dates fetus affecting in third trimester, antepartum (Acute) Encounter for supervision of normal in third trimester (Acute) Supervision of normal in second trimester (Acute) Excessive weight gain affecting (Acute) Cervical cancer screening (Acute) History of section, low transverse (Acute) Encounter for screening for malformation using ultrasound (Acute) Early stage of (Acute) Renal colic (Acute) Bacteremia (Acute) Renal calculus (Acute) Past Medical History Medical History Bacteremia Renal calculus Kidney infection in mother during first trimester of Family History Family History Maternal Grandmother Diabetes mellitus Mother Lupus Family history of problems with anesthesia: No Surgical History Surgical History (Updated 05/14/23 @ 07:17 by Ida Ivory RN) Hx of tubal ligation Hx of cystoscopy Hx of section History of Problems with Anesthesia: No Social History Social History Household Members: Family Housing: Apartment Are you a primary patient care manager to a significant other at home: No Do you presently have visiting nurse or other home services: No Alcohol intake: never Patient Tobacco Use Status: Former Tobacco user Quit Date: 7 years ago Use of substances other than those prescribed or required for medical reasons: No Agree to transfusion: Yes Are you DNR?: No Advance Directives: No Advance Directives Information Provided: Yes service: No Current occupational status: employed Current occupation: [employer] Current occupational exposures/hazards: No Cognitive needs: No Hearing needs: No Vision needs: No Meds Allergies Allergy/AdvReac Type Severity Reaction Status Date / Time Penicillins Allergy Severe ANAPHYLAXIS Verified 05/07/23 12:24 Home Medications Medication Instructions Recorded Confirmed Last Taken Type ferrous fumarate 325 mg (106 mg 325 mg PO DAILY 05/07/23 05/14/23 05/13/23 History iron) tablet Exam Height,Weight and Vital Signs: Height 5 ft Weight 66.678 kg Last Vital Signs Temp 97.0 F 05/14/23 07:34 Pulse 76 05/14/23 07:34 Resp 16 05/14/23 07:34 BP 109/55 L 05/14/23 07:34 Pulse Ox 100 05/14/23 07:34 O2 Del Method Room Air 05/14/23 07:34 Airway Mallampati Class: II TM Dist: >3cm Neck ROM: Full Loose/Missing/Broken Teeth: No Heart: rrr Lungs: clear Assessment and Plan Final Anesthetic Review Family History of Problems with Anesthesia: No History of Problems with Anesthesia: No NPO: Yes ASA Class: II Final Preanesthetic Review: No Changes in Pt Med Stat, Meds/Allgs Chart Reviewed, Consent Obtained/Reviewed and Anes Risks/Benef Reviewed Patient Risk: Low Procedure Risk: Low Anesthetic Plan Anesthetic Plan: GA Disposition: Standard PACU
--- NOTE | 2023-05-14 08:37 | MHC.SHP ---
Pre-Procedural Eval Section A Date of Service: 05/14/23 The patient is an INPATIENT: No The History & Physical has been completed within 30 days and I have reviewed it.: Yes Section B Chief Complaint: Calculus of kidney Allergies: Allergies Allergy/AdvReac Type Severity Reaction Status Date / Time Penicillins Allergy Severe ANAPHYLAXIS Verified 05/07/23 12:24 Plan I have reviewed the history and physical and performed a pertinent physical examination on my patient. No changes have occurred unless specified. Plan for Cystoscopy, right ureteroscopy, laser lithotripsy, ureteral stent exchange. Risks discussed included but not limited to, possible need to repeat procedure if stone is not completely fragmented, Irritative voiding symptoms, bladder spasms, urgency, blood in urine. Time Spent With Patient Time: Total time managing care of this patient today ____ minutes.
[2023-05-14 09:48] VITALS: BP 106/55; PULSE 55; RESP 16; TEMP 36.1; O2SAT 99
--- NOTE | 2023-05-14 09:49 | W.PM.OPN ---
Operative Note Operative Note Date of Service: 05/14/23 Narrative: PreOperative Diagnosis:?? Right ureteral stone status post stent, cystitis Post Operative Diagnosis:?? Right ureteral stone status post stent, cystitis, right ureteral stone no longer present. Procedure: Cystoscopy, right ureteroscopy stent removal Surgeon:?Dr Cherie Vargas Anesthesia:? General Procedure: After informed consent was verified the patient was brought to the operating placed on the OR table in supine position.? General Anesthesia was administered per protocol.? The patient was placed in lithotomy position, prepped and draped in the usual sterile fashion.? Safety pause time-out and side of surgery confirmed.? Antibiotics confirmed. A 22 Salvadorean cystoscope was inserted transurethrally, The bladder was visualized, again noted bullous changes on multifocal areas of the bladder.? Both ureteric orifices were in normal position. The right ureteral stent was curled in the bladder. The? distal end of the ureteral stent was grasped with the flexible grasping forceps. The stent was pulled retrograde through the urethra. A guidewire was passed through the stent. The cystoscope was removed, leaving the guidewire in place. The guidewire was used as the safety and was attached to the draping. The semi rigid ureteroscope was passed transurethrally to the level of the right UPJ. No ureteral stone was present. The ureteroscope was removed. The guidewire was removed. The cystoscope was passed transurethrally and the bladder was emptied.? The rigid cystoscope was removed. ? The patient tolerated the procedure well and was brought to the recovery room in stable condition. Complications: None Drains: None
[2023-05-14 09:53] VITALS: BP 108/63; PULSE 77; RESP 18; O2SAT 96
[2023-05-14 09:58] VITALS: BP 104/69; PULSE 68; RESP 17; O2SAT 96
[2023-05-14 10:03] VITALS: BP 96/59; PULSE 64; RESP 16; O2SAT 98
[2023-05-14] MEDS: Phenazopyridine HCL 200 MG TABLET PO (10:08)
[2023-05-14 10:18] VITALS: BP 101/66; PULSE 61; RESP 17; TEMP 36.3; O2SAT 100
== END 2023-05-14 11:06 | disposition home or self-care (01) ==
PROVIDERS: Visit Provider Urology
PROC: (CPT 52310; principal; 2023-05-14 08:30)
DX: N20.0 Calculus of kidney (principal); N30.90 Cystitis, unspecified without hematuria; Z87.891 Personal history of nicotine dependence
CPT/HCPCS: 52310; C1769; J1100; J1956; J2250; J2405; J2704; J3010; Q9967

== ENCOUNTER → 2023-05-14 07:06 | Outpatient (BNV) | payer OTHER, SELFPAY | PROVIDERS: Visit Provider Urology | DX: N20.1 Calculus of ureter (principal); Z96.0 Presence of urogenital implants | CPT/HCPCS: 52310 ==

== ENCOUNTER 2023-05-27 08:21 | Outpatient (AMB) | payer OTHER, SELFPAY ==
--- NOTE | 2023-05-27 08:13 | A.OFFVIS_ITS ---
Intake Intake Visit Reasons: S/P Cysto special possible stent removal Intake Note: STENT ALREADY REMOVED IN THE OR PER DR FLOYD Allergies Penicillins Allergy (Severe, Verified 05/07/23 12:24) ANAPHYLAXIS HPI HPI Comments History of Present Illness Details Ana is a 32-year-old female who presents today to the office for a follow-up. 05/27/2023? The patient was initially evaluated as an inpatient for nephrolithiasis and obstructing right ureteral stone. She is s/p stent insertion on 05/01/23, and ureteroscopy stent removal on 05/14/23. She states she is doing well. I have discussed at length diet modification to decrease risk of forming more kidney stones. I have discussed low oxalate diet and specific foods to avoid including certain green leafy vegetables, chocalate, nuts, tea, beets, rubarb; low sodium, decreased use of animal protein and the importance of hydration drinking up to 2-2.5 liters of fluids and use of adding lemon to water to increase citrate in the diet. A pamphlet is also provided today. Review of chart: Imagin04/30/23-- 3 mm nonobstructing calculus is seen. At the lower pole of the right kidney 1 mm and 3 mm nonobstructing calculi. is moderately severe right hydronephroureter secondary to a 7 mm calculus situated at the ureterovesicular junction. Left kidney -- 1 mm nonobstructing calculus is seen. At the lower pole of the left kidney there are 2 nonobstructing 1 mm calculi. 05/27/2023: Plan:? Ordered 24-hour urine collection test. Follow-up in 3 months, and KUB X-ray prior. [facility] Medical History Bacteremia Renal calculus Kidney infection in mother during first trimester of Surgical History Hx of tubal ligation Hx of cystoscopy Hx of section Family History Maternal Grandmother Diabetes mellitus Mother Lupus Social History Household Members: Family Both parents involved: No Caregiver staying overnight: No Housing: Apartment Are you a primary acute care assistant to a significant other at home: No Do you presently have visiting nurse or other home services: No 75 years or older and lives alone: No Alcohol intake: never Patient Tobacco Use Status: Former Tobacco user Quit Date: 7 years ago Agree to transfusion: Yes service: No Current occupational status: employed Current occupation: [employer] Current occupational exposures/hazards: No Cognitive needs: No Hearing needs: No Vision needs: No Female Reproductive History Menstrual Age of Menarche: 13 Review of Systems Const All systems reviewed & are unremarkable except as noted in HPI and below Reports no additional complaints Eyes Reports no additional complaints ENT Reports no additional complaints Card Reports as per HPI Resp Reports as per HPI GI Reports as per HPI and Reports no additional complaints Reports as per HPI Musc Reports no additional complaints Skin/Breast Denies rash and Denies unusual bruising Neuro Reports no additional complaints Psych Reports no additional complaints Endo Reports no additional complaints Louie/Lymph Reports no additional complaints Aller/Immun Reports no additional complaints Results AMB Urinalysis, Automated UA Leukoctes 125 Braulio/uL Last Edit by SAMY Harvey on 05/27/23 08:29 2+ Jaylen Gomes 05/27/23 08:29 UA Nitrite Negative Last Edit by SAMY Harvey on 05/27/23 08:29 UA Urobilinogen 0.2 mg/dL Last Edit by SAMY Harvey on 05/27/23 08:2 9 UA Protein 0 mg/dL Last Edit by SAMY Harvey on 05/27/23 08:29 UA pH 6.0 Last Edit by SAMY Harvey on 05/27/23 08:29 UA Blood 10 Tre/uL Last Edit by SAMY Harvey on 05/27/23 08:29 UA Specific [place] 1.030 Last Edit by SAMY Harvey on 05/27/23 08: 29 UA Ketone Negative Last Edit by SAMY Harvey on 05/27/23 08:29 UA Bilirubin 0 mg/dL Last Edit by SAMY Harvey on 05/27/23 08:29 UA Glucose 0 mg/dL Last Edit by SAMY Harvey on 05/27/23 08:29 Results Reviewed Results Reviewed: Laboratory Last Values Urine pH (Auto) 6.0 05/27/23 08:28 Specific [place] (Auto) 1.030 05/27/23 08:28 Urine Protein (Auto) 0 mg/dL 05/27/23 08:28 Glucose (UA)(Auto) 0 mg/dL 05/27/23 08:28 Urine Ketones (Auto) Negative 05/27/23 08:28 Urine Blood (Auto) 10 Tre/uL 05/27/23 08:28 Urine Nitrite (Auto) Negative 05/27/23 08:28 Urine Bilirubin (Auto) 0 mg/dL 05/27/23 08:28 Urine Urobilinogen (Auto) 0.2 mg/dL 05/27/23 08:28 Leukocyte Esterase (Auto) 125 Braulio/uL 05/27/23 08:28 Date of Service: 04/30/23 EXAMINATION: CT ABDOMEN AND PELVIS WITHOUT CONTRAST CLINICAL INFORMATION: Right flank pain; history of urinary calculi. COMPARISON: Renal ultrasound dated 08/12/2021; CT abdomen dated 04/15/2021. TECHNIQUE: Multidetector volumetric imaging was performed from the superior aspect of the liver through the pubic symphysis. Sagittal and coronal reformatted images were obtained on the technologist's workstation. This CT examination was performed using dose optimization techniques as appropriate, variously including the following: *Automated exposure control *Adjustment of mA and/or kV according to patient size (this includes techniques or standardized protocols for targeted exams where dose is matched to indication/reason for exam; i.e. extremities or head) *Use of iterative reconstruction technique DLP: 514 mGy-cm FINDINGS: LUNG BASES: There is bibasilar dependent hypoaeration, left greater than right. LIVER, GALLBLADDER, AND BILIARY TREE: The liver is normal in size, shape, and attenuation. Within segment 7 laterally (10:39), a 7 mm low-attenuation cyst is incidentally noted. This requires no imaging follow-up. No biliary ductal dilatation is present. The gallbladder is unremarkable, with no evidence of radiopaque gallstones, gallbladder wall thickening or obvious pericholecystic inflammatory change. PANCREAS: Unremarkable. SPLEEN: Unremarkable. ADRENAL GLANDS: Unremarkable. KIDNEYS AND URETERS: The kidneys are normal in size, shape, and attenuation. At the interpolar aspect of the right kidney (5:215), a 3 mm nonobstructing calculus is seen. At the lower pole of the right kidney (5:245 and 248), there are 1 mm and 3 mm nonobstructing calculi. There is moderately severe right hydronephroureter secondary to a 7 mm calculus situated at the ureterovesicular junction. At the interpolar aspect of the left kidney (5:188), a 1 mm nonobstructing calculus is seen. At the lower pole of the left kidney (5:221 and 233), there are 2 nonobstructing 1 mm calculi. No left ureteric calculus or hydronephroureter is seen. BLADDER: Unremarkable. GASTROINTESTINAL TRACT: There is mild diverticulosis, without acute diverticulitis. No bowel obstruction, free intraperitoneal air or abscess is seen. There is no focal bowel wall thickening. The vermiform appendix appears normal. ABDOMINAL WALL: There is a small fat-containing umbilical hernia. LYMPH NODES: Normal. VASCULAR: Unremarkable. PELVIC VISCERA: The uterus and adnexa are unremarkable. OSSEOUS STRUCTURES: Unremarkable. FREE FLUID: There is a small amount of low-attenuation free fluid in the cul-de-sac. IMPRESSION: 1. There are tiny nonobstructing bilateral renal calculi. There is moderate to severe right hydronephroureter secondary to a 7 mm calculus at the ureterovesicular junction. 2. There is mild diverticulosis, without acute diverticulitis. 3. There is a small fat-containing umbilical hernia. Assessment & Plan Assessment & Plan (1) Bilateral kidney stones: Code(s): N20.0 - Calculus of kidney Plan Ordered 24-hour urine collection test. Follow-up in 3 months, and KUB X-ray prior. Orders: Orders AMB Urinalysis Automated 05/27/23 Z13.9 - Encounter for screening, unspecified Patient Instructions: The patient had an opportunity to ask questions regarding treatment plan. All questions were answered. Imaging, Laboratory studies and physical exam results were discussed and reviewed in detail. No major barriers to understanding were identified. The patient expressed understanding and agreement with the above treatment plan. The patient is aware they should contact our office by phone for worsening of their current condition or the appearance of new symptoms. Compliance is encouraged with any medications and followup testing that is ordered. It is a privilege to be allowed the opportunity to participate in the urologic care of your patient. If you have any questions or concerns regarding treatment for the above conditions please do not hesitate to contact me. The office telephone contact is [phone]. This note is constructed in part using voice recognition software. While every effort has been made to ensure accuracy java tech errors may have been included. Yours sincerely, Cherie Vargas MD Coding Level of Care Code Est Pt Level 4 (14906) Diagnoses Bilateral kidney stones N20.0
== END 2023-05-27 08:59 | disposition home or self-care (01) ==
PROVIDERS: Visit Provider Urology
DX: N20.0 Calculus of kidney (principal)
CPT/HCPCS: 99214

== ENCOUNTER → 2023-05-27 08:21 | Outpatient (BNVA) | payer OTHER, SELFPAY | PROVIDERS: Visit Provider Urology | DX: N20.0 Calculus of kidney (principal) | CPT/HCPCS: 81003; 99212 ==

== ENCOUNTER 2023-06-06 11:23 | Outpatient (REF) | payer OTHER, SELFPAY ==
--- NOTE | ~2023-06-06 | US_ITS ---
EXAMINATION: US PELVIS CLINICAL INFORMATION: Abnormal uterine and vaginal bleeding, unspecified. COMPARISON: None available. TECHNIQUE: Ultrasound of the pelvis is performed using both transabdominal and transvaginal transducers along with Doppler. Transvaginal imaging is performed due to inadequate visualization transabdominally. FINDINGS: UTERUS: The uterus is anteverted and measures 9.3 x 4.1 x 5.4 cm. The double wall endometrial thickness is increased at 2.1 cm with some cystic areas within it. The uterus is smooth in contour and has normal myometrial echogenicity. A single small fibroid is present by the left cornu measuring 0.8 x 0.4 x 0.6 cm. ADNEXA: Both ovaries are visualized. There is normal color flow to the adnexa. There is no ovarian torsion. There is a small amount of free fluid collection. Right ovary measures 4.0 x 3.2 x 3.1 cm for a volume of 20.3 mL, which includes a 2.2 cm benign cyst. Left ovary measures 3.3 x 3.1 x 2.0 cm for a volume of 10.7 mL and contains multiple small follicles. US/US pelvic and transvaginal IMPRESSION: 1. Abnormally thickened endometrium at 2.1 cm with some cystic areas within it. Consider repeat ultrasound in 6-8 weeks at another time during the patient's cycle. Biopsy should be considered if findings don't change. 2. Benign right ovarian cyst. 3. Small uterine fibroid.
== END 2023-06-06 11:24 | disposition home or self-care (01) ==
LOC: HO.US 11:23
PROVIDERS: Visit Provider Obstetrics & Gynecology
DX: N93.9 Abnormal uterine and vaginal bleeding, unspecified (principal)
CPT/HCPCS: 76830; 76856

== ENCOUNTER 2023-06-26 11:46 | Outpatient (AMB) | payer OTHER, SELFPAY ==
--- NOTE | 2023-06-26 12:00 | MHC.OFFVIS ---
Intake Vital Signs 06/26/23 12:03 Height 5 ft Weight 147 lb BMI 28.7 BP 118/70 Intake Visit Reasons: Ultra sound follow up Frame Fixer Required: No Information Interpreted: non-clinical & clinical Accompanied by: Self / Same As Patient Allergies Penicillins Allergy (Severe, Verified 06/26/23 12:03) ANAPHYLAXIS Is last menstrual period known: Yes Last menstrual period: 06/17/23 HPI HPI Comments History of Present Illness Details The patient is presenting for follow-up to discuss the results of her abnormal uterine bleeding workup and options of treatment. The following workup was done.: H&H= 9.1/34.7 TSH, hCG, GC and chlamydia were negative. Pap smear was done in 09/11 was negative. Pelvic ultrasound showed the following: UTERUS: The uterus is anteverted and measures 9.3 x 4.1 x 5.4 cm. The double wall endometrial thickness is increased at 2.1 cm with some cystic areas within it. The uterus is smooth in contour and has normal myometrial echogenicity. A single small fibroid is present by the left cornu measuring 0.8 x 0.4 x 0.6 cm. ADNEXA: Both ovaries are visualized. There is normal color flow to the adnexa. There is no ovarian torsion. There is a small amount of free fluid collection. Right ovary measures 4.0 x 3.2 x 3.1 cm for a volume of 20.3 mL, which includes a 2.2 cm benign cyst. Left ovary measures 3.3 x 3.1 x 2.0 cm for a volume of 10.7 mL and contains multiple small follicles. [facility] Medical History Bacteremia Renal calculus Kidney infection in mother during first trimester of Surgical History Hx of tubal ligation Hx of cystoscopy Hx of section Family History Maternal Grandmother Diabetes mellitus Mother Lupus Social History Household Members: Family Both parents involved: No Caregiver staying overnight: No Housing: Apartment Are you a primary primary care physician to a significant other at home: No Do you presently have visiting nurse or other home services: No 75 years or older and lives alone: No Alcohol intake: never Patient Tobacco Use Status: Former Tobacco user Quit Date: 7 years ago Agree to transfusion: Yes service: No Current occupational status: employed Current occupation: chirag Current occupational exposures/hazards: No Cognitive needs: No Hearing needs: No Vision needs: No Female Reproductive History Menstrual Age of Menarche: 13 Date of last menstrual period: 06/17/23 Review of Systems Const All systems reviewed & are unremarkable except as noted in HPI and below Reports as per HPI and Reports no additional complaints GI Reports no additional complaints Reports no additional complaints Assessment & Plan Assessment & Plan (1) Abnormal uterine bleeding (AUB): Code(s): N93.9 - Abnormal uterine and vaginal bleeding, unspecified Plan: Discussed with the patient the results of the work up done and options of treatment including but not limited to BCP's, cyclic Progesterone, Mirena IUD, endometrial ablation and hysterectomy. All pros, cons, risks and benefits of each option were discussed with the patient and the patient decided to go ahead with cyclic Prometrium, so a more detailed discussion re: Progesterone treatment including mechanism of action, benefits (regular menses, endometrial protection form unopposed estrogen and reduction in the risk of endometrial hyperplasia and/or cancer ...), risks (Thrombosis, mood changes, weight gain, breast soreness, ? increased breast ca, others). Instructions were given to use a back- up method for contraception since this is not a method control, take Prometrium 200 mg Rich 1 tablet daily starting day 15-24 and to schedule a 3 months follow-up appointment; patient verbalized understanding and agreed with the plan. (2) Uterine myoma: Code(s): D25.9 - Leiomyoma of uterus, unspecified Plan: Discussed with the patient the results of the ultrasound showing a uterine myoma. Discussed with the patient risk of myosarcoma and symptoms that are caused by myomas including but not limited to pelvic pain, pressure symptoms, abnormal uterine bleeding. In addition discussed with the patient options of treatment for myomas including: Serial ultrasounds periodically to follow-up on the size of the myoma while targeting the treatment against fibroids related symptoms ( control pills, Mirena IUD, progesterone treatment, GnRH agonist/antagonist). All pros and cons, risks and benefits of all options were discussed with the patient. The patient understands that delay in surgical treatment in case of myosarcoma can affect her prognosis, after further discussion, the patient decided to proceed with cyclic Prometrium treatment. (3) Endometrial thickening on ultrasound: Code(s): R93.89 - Abnormal findings on diagnostic imaging of other specified body structures Plan: Explaining to the patient that since she is premenopausal with abnormal bleeding thickened endometrium by ultrasound could be related but is not limited to the secretory phase of the cycle, will repeat ultrasound in the early proliferative phase of her next menstrual cycle on days 4, 5 or 6, if endometrium is still abnormal procedures endometrial sampling to rule out endometrial pathology including malignancy hyperplasia or polyp. Instructions given the patient to schedule an ultrasound follow-up appointment. All questions answered, the patient verbalized understanding Orders: Orders US pelvic and transvaginal 07/18/23 R93.89 - Abnormal findings on diagnostic imaging of other specified body structures Medications: New progesterone micronized (Prometrium) Take the pill 1 tablet a day cyclically every month from day 15-24 day 1 being the 1st day of next menstrual cycle 200 mg PO BEDTIME 30 caps 0RF 10 days Coding Level of Care Code Est Pt Level 3 (25883) Diagnoses Abnormal uterine bleeding (AUB) N93.9 Uterine myoma D25.9 Endometrial thickening on ultrasound R93.89
[2023-06-26 12:03] VITALS: BP 118/70; BMI 28.7
== END 2023-06-26 12:29 | disposition home or self-care (01) ==
LOC: HO.HWS 11:47
PROVIDERS: Visit Provider Obstetrics & Gynecology
DX: N93.9 Abnormal uterine and vaginal bleeding, unspecified (principal); D25.9 Leiomyoma of uterus, unspecified; R93.89 Abnormal findings on diagnostic imaging of other specified body structures
CPT/HCPCS: 99213

== ENCOUNTER → 2023-06-26 11:46 | Outpatient (BNVA) | payer OTHER, SELFPAY | PROVIDERS: Visit Provider Obstetrics & Gynecology | DX: N93.9 Abnormal uterine and vaginal bleeding, unspecified (principal); D25.9 Leiomyoma of uterus, unspecified; R93.89 Abnormal findings on diagnostic imaging of other specified body structures | CPT/HCPCS: 99212 ==

== ENCOUNTER 2023-07-18 13:13 | Outpatient (REF) | payer OTHER, SELFPAY ==
--- NOTE | ~2023-07-18 | US_ITS ---
EXAMINATION: US PELVIS CLINICAL INFORMATION: Abnormal uterine bleeding; the last menstrual period is uncertain. COMPARISON: Pelvic ultrasound dated 06/06/2023. TECHNIQUE: Ultrasound of the pelvis is performed using both transabdominal and transvaginal transducers along with Doppler. Transvaginal imaging is performed due to inadequate visualization transabdominally. FINDINGS: The uterus is of normal size and echogenicity measuring 10.6 x 4.0 x 4.6 cm. The uterus is anteverted. A regular, homogeneous endometrium is identified measuring 1.5 cm. FIBROIDS: There is 1 fibroid seen. 1. Location: Upper leftward body, myometrial. Size: 0.7 x 0.7 x 0.8 cm. Prior: 0.8 x 0.4 x 0.6 cm. Fibroid characteristics: Hypoechoic. Both ovaries are of normal size and echogenicity. The right ovary measures 3.5 x 2.2 x 2.9 cm for a volume of 11.7 mL. The left measures 4.4 x 3.6 x 3.6 cm for a volume of 29.0 mL. The left ovary contains a 2.8 x 3.6 x 2.8 cm hemorrhagic cyst, with characteristic internal reticulated contents. There is no pelvic free fluid. No adnexal mass is seen. US/US pelvic and transvaginal IMPRESSION: 1. A small uterine fibroid is seen. 2. A 3.6 cm left ovarian hemorrhagic cyst is incidentally noted.
== END 2023-07-18 13:14 | disposition home or self-care (01) ==
LOC: HO.US 13:13
PROVIDERS: Visit Provider Obstetrics & Gynecology
DX: R93.89 Abnormal findings on diagnostic imaging of other specified body structures (principal)
CPT/HCPCS: 76830; 76856